=== PATIENT | male | born 1970 ===

== ENCOUNTER 2017-08-19 23:20 | Inpatient (IN) | payer MEDICAID ==
[2017-08-19] MEDS: Albuterol-Ipratrop 3 mg / 0.5 (3 ml) UD IH STA (23:41)
[2017-08-19] MEDS ORDERED: Albuterol-Ipratrop 3 mg / 0.5 (3 ml) UD ONE (23:41)
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
[2017-08-20] MEDS ORDERED: Albuterol-Ipratrop 3 mg / 0.5 (3 ml) UD IH STA (00:08)
[2017-08-20 00:54] LABS: HEMATOCRIT 43.6 % (42.0-52.0); MEAN CELL VOLUME 93.8 fl (80.0-105.0); MEAN CORPUSCULAR HEMOGLOBIN 31.6 pg (25.0-35.0); MEAN CORPUSCULAR HGB CONC 33.7 g/dl (31.0-37.0); MEAN PLATELET VOLUME 10.8 fl (7.0-11.0); RED CELL DISTRIBUTION WIDTH 13.4 % (11.5-14.5); WHITE BLOOD COUNT 11.6 10^3/ul (4.5-11.0)
[2017-08-20 01:59] LABS: ALB/GLOB RATIO 1.5 (1.1-1.8); ALKALINE PHOSPHATASE 69 U/L (38-126); ALT/SGPT 31 U/L (7-56); AST/SGOT 29 U/L (17-59); BILIRUBIN,TOTAL 0.5 mg/dL (0.2-1.3); BLOOD UREA NITROGEN 16 mg/dL (7-21); CALCIUM 8.9 mg/dL (8.4-10.5); CARBON DIOXIDE 29 mmol/L (21-33); CHLORIDE 99 mmol/L (98-107); GFR AFRICAN-AMERICAN > 60; GLUCOSE,RANDOM 136 mg/dL (70-110); POTASSIUM 4.1 mmol/L (3.6-5.0); SODIUM 138 mmol/L (132-148); TOTAL PROTEIN 7.1 g/dL (5.8-8.3)
[2017-08-20] MEDS ORDERED: Albuterol-Ipratrop 3 mg / 0.5 (3 ml) UD IH PRN (02:47)
[2017-08-20 03:15] LABS: ARTERIAL BLOOD GAS HCO3 28.5 mmol/L (21-28); ARTERIAL BLOOD GAS O2 CAPACITY 19.5 mL/dl (16-24); ARTERIAL BLOOD GAS O2 CONTENT 18.8 ML/dl (15-23); ARTERIAL BLOOD GAS PH 7.43 (7.35-7.45); ARTERIAL BLOOD HGB O2 SAT 91.8 % (95.0-98.0); CARBOXYHEMOGLOBIN 3.6 % (0.5-1.5); HHB 3.5 % (0-5)
[2017-08-20] MEDS ORDERED: Albuterol-Ipratrop 3 mg / 0.5 (3 ml) UD IH SCH (03:30)
[2017-08-20 04:12] VITALS: BMI 25.0
[2017-08-20] MEDS ORDERED: Pneumococcal 23-Valent Vaccine IM ONE (04:13)
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
[2017-08-20] MEDS: Albuterol-Ipratrop 3 mg / 0.5 (3 ml) UD IH STA (04:30)
[2017-08-20] MEDS ORDERED: Levalbuterol 0.63 MG/3 ML Inhal Soln UD IH PRN (04:36)
[2017-08-20] MEDS: Pantoprazole 40 mg EC Tab PO SCH (05:23)
[2017-08-20 06:40] LABS: GRAN # 7.81 (1.4-6.5); GRAN % 95.7 % (50.0-68.0); HEMATOCRIT 42.3 % (42.0-52.0); LYMPH # 0.3 (1.2-3.4); LYMPH % 3.6 % (22.0-35.0); MEAN CORPUSCULAR HEMOGLOBIN 31.2 pg (25.0-35.0); MEAN CORPUSCULAR HGB CONC 33.6 g/dl (31.0-37.0); MEAN PLATELET VOLUME 10.9 fl (7.0-11.0); MONO # 0.1 (0.1-0.6); MONO % 0.7 % (1.0-6.0); PLATELET COUNT 279 10^3/uL (120.0-450.0); RED CELL DISTRIBUTION WIDTH 13.3 % (11.5-14.5); WHITE BLOOD COUNT 8.2 10^3/ul (4.5-11.0)
[2017-08-20 06:42] LABS: ALB/GLOB RATIO 1.5 (1.1-1.8); ALKALINE PHOSPHATASE 66 U/L (38-126); ALT/SGPT 30 U/L (7-56); AST/SGOT 30 U/L (17-59); BILIRUBIN,TOTAL 0.5 mg/dL (0.2-1.3); BLOOD UREA NITROGEN 15 mg/dL (7-21); CALCIUM 9.1 mg/dL (8.4-10.5); CARBON DIOXIDE 29 mmol/L (21-33); CHLORIDE 100 mmol/L (98-107); GFR AFRICAN-AMERICAN > 60; GLUCOSE,RANDOM 155 mg/dL (70-110); MAGNESIUM 2.2 mg/dL (1.7-2.2); PHOSPHOROUS 2.3 mg/dL (2.5-4.5); SODIUM 140 mmol/L (132-148); TOTAL PROTEIN 7.1 g/dL (5.8-8.3)
[2017-08-20 07:05] LABS: TROPONIN I < 0.01 ng/mL
[2017-08-20] MEDS: Levalbuterol 0.63 MG/3 ML Inhal Soln UD IH SCH ×5 (08:00→23:56)
[2017-08-20 08:45] LABS: ANISOCYTOSIS SLIGHT; BAND 2 % (0-2); NEUTROPHIL 93 % (50.0-70.0); PLATELET ESTIMATE NORMAL (NORMAL)
[2017-08-20 08:46] LABS: LARGE PLATELETS PRESENT
[2017-08-20] MEDS: MethylPREDNISolone 40 mg Vial IVP SCH ×2 (09:36→21:14)
[2017-08-20 12:29] VITALS: RESP 18
--- NOTE | 2017-08-20 13:10 | RAD ---
HISTORY: asthma /sob COMPARISON: 01/07/2017 FINDINGS: LUNGS: No active pulmonary disease. Bilateral hyperaeration similar-appearing PLEURA: No significant pleural effusion identified, no pneumothorax apparent. CARDIOVASCULAR: Top-normal heart size OSSEOUS STRUCTURES: No significant abnormalities. VISUALIZED UPPER ABDOMEN: Normal. OTHER FINDINGS: None. IMPRESSION: Bilateral [id number]. No infiltrate or atelectasis noted
--- NOTE | 2017-08-21 02:42 | CARD ---
APPROVED REPORT EKG Measurement Heart [id number] OR 140P65 [id number] <Conclusion> Sinus rhythm with premature atrial complexes Otherwise normal ECG
[2017-08-21] MEDS: Pantoprazole 40 mg EC Tab PO SCH (05:22)
[2017-08-21 06:21] LABS: BASO # 0.01 K/mm3 (0.0-2.0); GRAN # 18.93 (1.4-6.5); GRAN % 90.1 % (50.0-68.0); HEMATOCRIT 47.1 % (42.0-52.0); LYMPH % 4.8 % (22.0-35.0); MEAN CELL VOLUME 92.2 fl (80.0-105.0); MEAN CORPUSCULAR HEMOGLOBIN 31.9 pg (25.0-35.0); MEAN CORPUSCULAR HGB CONC 34.6 g/dl (31.0-37.0); MEAN PLATELET VOLUME 10.9 fl (7.0-11.0); MONO # 1.1 (0.1-0.6); MONO % 5.1 % (1.0-6.0); RED CELL DISTRIBUTION WIDTH 13.5 % (11.5-14.5)
[2017-08-21 06:45] LABS: ALB/GLOB RATIO 1.3 (1.1-1.8); ALKALINE PHOSPHATASE 75 U/L (38-126); ALT/SGPT 30 U/L (7-56); AST/SGOT 35 U/L (17-59); BILIRUBIN,TOTAL 0.4 mg/dL (0.2-1.3); BLOOD UREA NITROGEN 20 mg/dL (7-21); CALCIUM 9.6 mg/dL (8.4-10.5); CARBON DIOXIDE 27 mmol/L (21-33); CHLORIDE 102 mmol/L (98-107); GFR AFRICAN-AMERICAN > 60; GLUCOSE,RANDOM 115 mg/dL (70-110); MAGNESIUM 2.3 mg/dL (1.7-2.2); PHOSPHOROUS 3.8 mg/dL (2.5-4.5); POTASSIUM 4.6 mmol/L (3.6-5.0); SODIUM 142 mmol/L (132-148); TOTAL PROTEIN 7.9 g/dL (5.8-8.3)
[2017-08-21] MEDS: Levalbuterol 0.63 MG/3 ML Inhal Soln UD IH SCH ×3 (07:42→16:12)
[2017-08-21] MEDS: MethylPREDNISolone 40 mg Vial IVP SCH (09:14)
[2017-08-21 09:45] VITALS: BP 114/74; PULSE 86; TEMP 98.1
--- NOTE | 2017-08-21 09:51 | CP.PCM.PN ---
<Shaka Heredia - Last Filed: 08/21/17 11:50> Subjective - Date & Time of Evaluation Date of Evaluation: 08/21/17 Time of Evaluation: 09:00 - Subjective Subjective: Subjective: Patient seen and examined at bedside. Resting comfortably in bed. No acute overnight events. Patient states SOB have improved relative to baseline but admits to SOB with exertion. Admits to cough with brown sputum production. Denies f/c/cp/abdominal pain/n/v/d/c/urinary sxs. Physical Examination: Constitutional: a&o x 4, nad Head and Neck: neck supple, no jvd, trachea midline, carotid midline, no cervical/head mass Eyes: mary, nonicteric sclera, eom intact ENT: auditory acuity grossly intact, throat not congested, no nasal deformity Cardio: rrr, no m/r/g, no carotid bruit, nml s1, s2 Pulm: +diffuse wheezes- increased from baseline due to opening of airways; no accessory muscle use, equal nml breath sounds bilaterally, no r/r Abd: s/nt/nd, nbs x 4 q, no palpable masses Derm: no rashes, no ulcers, no lesions Extr: no edema, no cyanosis, no calf tenderness, no lesions, no varicosities Neuro: Patient is awake, alert, responds to verbal stimuli, answers questions appropriately, follows commands, and moves extremities past midline : reducible left inguinal hernia Assessment and Plan: Patient is a 46 M with a past medical history of asthma who was admitted for evaluation and treatment of SOB. Asthma exacerbation - xopenox scheduled and PRN - c/w IV Solu-medrol - AM labs: CBC, CMP, Mg, Phos - Vitals q6h Productive Cough - CXR reviewed and appreciated - CT of chest- rule out pneumonia - considering patients leukocytosis and productive cough will start patient on levofloxacin Left Inguinal Hernia - reducible however recurrent upon standing and ambulation - general surgery consult placed- Dr. Stroud- no surgical intervention at this time- schedule for elective procedure Leukocytosis: - likely 2/2 IV steroid use - monitor closely via CBC in AM - blood cultures pending Tobacco Abuse - encouraged smoking cessation, education on danger of smoking/chewing tobacco products offered - nicotine patch offered- patient does not want at this time Prophylaxis - Protonix - SCDs Patient seen, case discussed with, and plan approved by attending physician, Dr. Plummer Objective - Vital Signs/Intake and Output Vital Signs (last 24 hours): Temp Pulse Resp BP Pulse Ox 99.3 F 91 H 18 143/94 H 94 L 08/20/17 20:41 08/20/17 20:41 08/20/17 20:41 08/20/17 20:41 08/20/17 20:41 Intake and Output: 08/21/17 08/21/17 06:59 18:59 Intake Total 540 Balance 540 - Medications Medications: Current Medications Levalbuterol HCl (Xopenex) 0.63 mg IH [id number] [facility] Last Admin: 08/21/17 07:42 Dose: Not Given Levalbuterol HCl (Xopenex) 0.63 mg IH Q2H PRN PRN Reason: Shortness of Breath Last Admin: 08/21/17 06:06 Dose: 0.63 mg Methylprednisolone (Solu-Medrol) 40 mg IVP Q12 [facility] Last Admin: 08/21/17 09:14 Dose: 40 mg Pantoprazole Sodium (Protonix Ec Tab) 40 mg PO 0600 [facility] Last Admin: 08/21/17 05:22 Dose: 40 mg - Labs Labs: 08/21/17 06:00 08/21/17 06:00 <Hannah Plummer - Last Filed: 08/21/17 14:20> Objective - Vital Signs/Intake and Output Vital Signs (last 24 hours): Temp Pulse Resp BP Pulse Ox 98.1 F 86 18 114/74 98 08/21/17 06:00 08/21/17 06:00 08/21/17 06:00 08/21/17 06:00 08/21/17 10:00 - Medications Medications: Current Medications Levofloxacin/Dextrose (Levaquin 500mg) 500 mg in 100 mls @ 100 mls/hr IVPB DAILY [facility] Levalbuterol HCl (Xopenex) 0.63 mg IH [id number] [facility] Last Admin: 08/21/17 11:34 Dose: 0.63 mg Levalbuterol HCl (Xopenex) 0.63 mg IH Q2H PRN PRN Reason: Shortness of Breath Last Admin: 08/21/17 06:06 Dose: 0.63 mg Methylprednisolone (Solu-Medrol) 40 mg IVP Q12 [facility] Last Admin: 08/21/17 09:14 Dose: 40 mg Pantoprazole Sodium (Protonix Ec Tab) 40 mg PO 0600 [facility] Last Admin: 08/21/17 05:22 Dose: 40 mg Attending/Attestation - Attestation I have personally seen and examined this patient.: Yes I have fully participated in the care of the patient.: Yes I have reviewed all pertinent clinical information, including history, physical exam and plan: Yes Notes (Text): 08/21/17 14:14 attending note; Patient seen and examined with resident. Patient is a 46-year-old male admitted with acute asthma exacerbation. Continue Xopenex and IV steroids. Leukocytosis; secondary to steroids. still with significant cough and mild sputum production; started on IV levofloxacin. CT chest ordered to rule out pneumonia. Active smoking; smoking cessation is strongly advised. Continue to monitor closely. Needs outpatient pulmonary evaluation and PFT. The patient will follow-up with PMD Dr. Cruz upon discharge.
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
[2017-08-21] MEDS ORDERED: levoFLOXacin 500 mg in D5W 500 MG/100 ML BAG IVPB SCH (11:15)
[2017-08-21 13:06] VITALS: O2SAT 98
[2017-08-21] MEDS ORDERED: guaiFENesin 100 mg/5 ml Syrup UD PO PRN (14:19)
--- NOTE | 2017-08-22 13:30 | CP.PCM.DIS ---
<Shaka Heredia - Last Filed: 08/22/17 13:14> Provider - Provider Date of Admission: 08/21/17 11:04 Attending physician: Hannah Plummer MD Primary care physician: Kana Cruz JD, MD Time Spent in preparation of Discharge (in minutes): 30 Diagnosis - Discharge Diagnosis (1) Asthma exacerbation Status: Acute Priority: Medium (2) Shortness of breath Status: Acute Priority: Medium Hospital Course - Lab Results Lab Results: Most Recent Lab Values WBC 21.0 10^3/ul (4.5-11.0) H D 08/21/17 06:00 RBC 5.11 10^6/uL (3.5-6.1) 08/21/17 06:00 Hgb 16.3 g/dL (14.0-18.0) D 08/21/17 06:00 Hct 47.1 % (42.0-52.0) 08/21/17 06:00 MCV 92.2 fl (80.0-105.0) 08/21/17 06:00 MCH 31.9 pg (25.0-35.0) 08/21/17 06:00 MCHC 34.6 g/dl (31.0-37.0) 08/21/17 06:00 RDW 13.5 % (11.5-14.5) 08/21/17 06:00 Plt Count 346 10^3/uL (120.0-450.0) 08/21/17 06:00 MPV 10.9 fl (7.0-11.0) 08/21/17 06:00 Gran % 90.1 % (50.0-68.0) H 08/21/17 06:00 Lymph % (Auto) 4.8 % (22.0-35.0) L 08/21/17 06:00 [place] % (Auto) 5.1 % (1.0-6.0) 08/21/17 06:00 Eos % (Auto) 0.0 % (1.5-5.0) L 08/21/17 06:00 Baso % (Auto) 0.0 % (0.0-3.0) 08/21/17 06:00 Gran # 18.93 (1.4-6.5) H 08/21/17 06:00 Lymph # 1.0 (1.2-3.4) L 08/21/17 06:00 [place] # 1.1 (0.1-0.6) H 08/21/17 06:00 Eos # 0.0 (0.0-0.7) 08/21/17 06:00 Baso # 0.01 K/mm3 (0.0-2.0) 08/21/17 06:00 Neutrophils % (Manual) 93 % (50.0-70.0) H 08/20/17 06:15 Band Neutrophils % 2 % (0-2) 08/20/17 06:15 Lymphocytes % (Manual) 4 % (22.0-35.0) L 08/20/17 06:15 Monocytes % (Manual) 1 % (1.0-6.0) 08/20/17 06:15 Platelet Evaluation Normal (NORMAL) 08/20/17 06:15 Large Platelets Present 08/20/17 06:15 Anisocytosis (manual) Slight 08/20/17 06:15 pCO2 43 mm/Hg (35-45) 08/20/17 03:12 pO2 68.0 mm/Hg (80-100) L 08/20/17 03:12 HCO3 28.5 mmol/L (21-28) H 08/20/17 03:12 ABG pH 7.43 (7.35-7.45) 08/20/17 03:12 ABG Total CO2 29.8 mmol.L (22-28) H 08/20/17 03:12 ABG O2 Saturation 96.3 % (95-98) 08/20/17 03:12 ABG O2 Content 18.8 ML/dl (15-23) 08/20/17 03:12 ABG Base Excess 3.6 mmol/L (-2.0-3.0) H 08/20/17 03:12 ABG Hemoglobin 14.6 g/dL (11.7-17.4) 08/20/17 03:12 ABG Carboxyhemoglobin 3.6 % (0.5-1.5) H 08/20/17 03:12 POC ABG HHb (Measured) 3.5 % (0-5) 08/20/17 03:12 ABG Methemoglobin 1.0 % (0.0-3.0) 08/20/17 03:12 ABG O2 Capacity 19.5 mL/dl (16-24) 08/20/17 03:12 Hgb O2 Saturation 91.8 % (95.0-98.0) L 08/20/17 03:12 FiO2 32.0 % 08/20/17 03:12 Sodium 142 mmol/L (132-148) 08/21/17 06:00 Potassium 4.6 mmol/L (3.6-5.0) 08/21/17 06:00 Chloride 102 mmol/L (98-107) 08/21/17 06:00 Carbon Dioxide 27 mmol/L (21-33) 08/21/17 06:00 Anion Gap 18 (10-20) 08/21/17 06:00 BUN 20 mg/dL (7-21) 08/21/17 06:00 Creatinine 0.9 mg/dL (0.8-1.5) 08/21/17 06:00 Est GFR ( Amer) > 60 08/21/17 06:00 Est GFR (Non-Af Amer) > 60 08/21/17 06:00 Random Glucose 115 mg/dL (70-110) H 08/21/17 06:00 Calcium 9.6 mg/dL (8.4-10.5) 08/21/17 06:00 Phosphorus 3.8 mg/dL (2.5-4.5) 08/21/17 06:00 Magnesium 2.3 mg/dL (1.7-2.2) H 08/21/17 06:00 Total Bilirubin 0.4 mg/dL (0.2-1.3) 08/21/17 06:00 AST 35 U/L (17-59) 08/21/17 06:00 ALT 30 U/L (7-56) 08/21/17 06:00 Alkaline Phosphatase 75 U/L (38-126) 08/21/17 06:00 Troponin I < 0.01 ng/mL 08/20/17 06:15 Total Protein 7.9 g/dL (5.8-8.3) 08/21/17 06:00 Albumin 4.5 g/dL (3.0-4.8) 08/21/17 06:00 Globulin 3.4 gm/dL 08/21/17 06:00 Albumin/Globulin Ratio 1.3 (1.1-1.8) 08/21/17 06:00 - Hospital Course Hospital Course: Patient is a 46 year old male with a past medical history of asthma who was admitted for evaluation and treatment of SOB. With the use of physical examinations, lab work, and imaging the patient was diagnosed with and treated for acute asthma exacerbation and a reducible left inguinal hernia. During their hospital stay the patient was seen by general surgery and their recommendations were appreciated. During their hospital stay the patient underwent a chest xray and the results were reviewed and utilized in managing the patients clinical course. Patient desired to leave against medical advice due to social issues. Patient was educated on the risks and benefits of leaving at this time without being medically cleared. Patient both understands and appreciates that leaving against medical advice can increase his risk of both morbidity and mortality. Furthermore, the patient is instructed to return to the emergency room for evaluation of intractable headache, fever, chills, dizziness, chest pain, shortness of breath, abdominal pain, nausea, vomiting, diarrhea, constipation, and urinary symptoms. This is a brief summary of the patients hospital course. Please see patient chart for full details. Discharge Plan - Discharge Medications Prescriptions: Albuterol HFA [Ventolin HFA 90 mcg/actuation (8 g)] 1 puff IH Q6 #1 inhaler Fluticasone/Salmeterol 500/50 [Advair Diskus] 1 dsk IH BID #1 puff guaiFENesin [guaifENESIN] 100 mg PO Q6 #10 udc Levofloxacin [Levaquin] 500 mg PO DAILY #7 tablet Methylprednisolone [Medrol Dose Pack (21 tabs)] 4 mg PO DAILY #21 mg Pantoprazole Sodium [Protonix] 40 mg PO DAILY #14 ect - Follow Up Plan Condition: STABLE Disposition: AGAINST MEDICAL ADVICE Referrals: Kana Cruz JD, MD [Primary Care Provider] - <Hannah Plummer - Last Filed: 08/22/17 14:17> Provider - Provider Date of Admission: 08/21/17 11:04 Attending physician: Hannah Plummer MD Primary care physician: Kana Cruz JD, MD Hospital Course - Lab Results Lab Results: Most Recent Lab Values WBC 21.0 10^3/ul (4.5-11.0) H D 08/21/17 06:00 RBC 5.11 10^6/uL (3.5-6.1) 08/21/17 06:00 Hgb 16.3 g/dL (14.0-18.0) D 08/21/17 06:00 Hct 47.1 % (42.0-52.0) 08/21/17 06:00 MCV 92.2 fl (80.0-105.0) 08/21/17 06:00 MCH 31.9 pg (25.0-35.0) 08/21/17 06:00 MCHC 34.6 g/dl (31.0-37.0) 08/21/17 06:00 RDW 13.5 % (11.5-14.5) 08/21/17 06:00 Plt Count 346 10^3/uL (120.0-450.0) 08/21/17 06:00 MPV 10.9 fl (7.0-11.0) 08/21/17 06:00 Gran % 90.1 % (50.0-68.0) H 08/21/17 06:00 Lymph % (Auto) 4.8 % (22.0-35.0) L 08/21/17 06:00 [place] % (Auto) 5.1 % (1.0-6.0) 08/21/17 06:00 Eos % (Auto) 0.0 % (1.5-5.0) L 08/21/17 06:00 Baso % (Auto) 0.0 % (0.0-3.0) 08/21/17 06:00 Gran # 18.93 (1.4-6.5) H 08/21/17 06:00 Lymph # 1.0 (1.2-3.4) L 08/21/17 06:00 [place] # 1.1 (0.1-0.6) H 08/21/17 06:00 Eos # 0.0 (0.0-0.7) 08/21/17 06:00 Baso # 0.01 K/mm3 (0.0-2.0) 08/21/17 06:00 Neutrophils % (Manual) 93 % (50.0-70.0) H 08/20/17 06:15 Band Neutrophils % 2 % (0-2) 08/20/17 06:15 Lymphocytes % (Manual) 4 % (22.0-35.0) L 08/20/17 06:15 Monocytes % (Manual) 1 % (1.0-6.0) 08/20/17 06:15 Platelet Evaluation Normal (NORMAL) 08/20/17 06:15 Large Platelets Present 08/20/17 06:15 Anisocytosis (manual) Slight 08/20/17 06:15 pCO2 43 mm/Hg (35-45) 08/20/17 03:12 pO2 68.0 mm/Hg (80-100) L 08/20/17 03:12 HCO3 28.5 mmol/L (21-28) H 08/20/17 03:12 ABG pH 7.43 (7.35-7.45) 08/20/17 03:12 ABG Total CO2 29.8 mmol.L (22-28) H 08/20/17 03:12 ABG O2 Saturation 96.3 % (95-98) 08/20/17 03:12 ABG O2 Content 18.8 ML/dl (15-23) 08/20/17 03:12 ABG Base Excess 3.6 mmol/L (-2.0-3.0) H 08/20/17 03:12 ABG Hemoglobin 14.6 g/dL (11.7-17.4) 08/20/17 03:12 ABG Carboxyhemoglobin 3.6 % (0.5-1.5) H 08/20/17 03:12 POC ABG HHb (Measured) 3.5 % (0-5) 08/20/17 03:12 ABG Methemoglobin 1.0 % (0.0-3.0) 08/20/17 03:12 ABG O2 Capacity 19.5 mL/dl (16-24) 08/20/17 03:12 Hgb O2 Saturation 91.8 % (95.0-98.0) L 08/20/17 03:12 FiO2 32.0 % 08/20/17 03:12 Sodium 142 mmol/L (132-148) 08/21/17 06:00 Potassium 4.6 mmol/L (3.6-5.0) 08/21/17 06:00 Chloride 102 mmol/L (98-107) 08/21/17 06:00 Carbon Dioxide 27 mmol/L (21-33) 08/21/17 06:00 Anion Gap 18 (10-20) 08/21/17 06:00 BUN 20 mg/dL (7-21) 08/21/17 06:00 Creatinine 0.9 mg/dL (0.8-1.5) 08/21/17 06:00 Est GFR ( Amer) > 60 08/21/17 06:00 Est GFR (Non-Af Amer) > 60 08/21/17 06:00 Random Glucose 115 mg/dL (70-110) H 08/21/17 06:00 Calcium 9.6 mg/dL (8.4-10.5) 08/21/17 06:00 Phosphorus 3.8 mg/dL (2.5-4.5) 08/21/17 06:00 Magnesium 2.3 mg/dL (1.7-2.2) H 08/21/17 06:00 Total Bilirubin 0.4 mg/dL (0.2-1.3) 08/21/17 06:00 AST 35 U/L (17-59) 08/21/17 06:00 ALT 30 U/L (7-56) 08/21/17 06:00 Alkaline Phosphatase 75 U/L (38-126) 08/21/17 06:00 Troponin I < 0.01 ng/mL 08/20/17 06:15 Total Protein 7.9 g/dL (5.8-8.3) 08/21/17 06:00 Albumin 4.5 g/dL (3.0-4.8) 08/21/17 06:00 Globulin 3.4 gm/dL 08/21/17 06:00 Albumin/Globulin Ratio 1.3 (1.1-1.8) 08/21/17 06:00 Attending/Attestation - Attestation I have personally seen and examined this patient.: Yes I have fully participated in the care of the patient.: Yes I have reviewed all pertinent clinical information, including history, physical exam and plan: Yes Notes (Text): 08/22/17 14:16 attending note; Patient seen and examined with resident. Patient is a 46-year-old male admitted with acute asthma exacerbation. Continue Xopenex and IV steroids. Leukocytosis; secondary to steroids. still with significant cough and mild sputum production; started on IV levofloxacin. CT chest ordered to rule out pneumonia. Active smoking; smoking cessation is strongly advised. Continue to monitor closely. Needs outpatient pulmonary evaluation and PFT. patient signed AMA. The patient will follow-up with PMD Dr. Cruz upon discharge. diagnosis; asthma smoker leukocytosis
== END 2017-08-21 17:30 | disposition left against medical advice (07) | DRG 97 ==
LOC: ED 23:20 → ERH 08-20 02:25 → 2RNO 08-20 03:35 → 3RSO 08-20 16:47 → OBSVTOIN 08-21 11:04
PROVIDERS: ADMIT Internal Medicine; ATTEND Internal Medicine
PROC: 3E0F7GC Introduction of Other Therapeutic Substance into Respiratory Tract, Via Natural or Artificial Opening (ICD-10-PCS; principal; 2017-08-20)
DX: J45.901 Unspecified asthma with (acute) exacerbation (principal); D72.829 Elevated white blood cell count, unspecified; T38.0X5A Adverse effect of glucocorticoids and synthetic analogues, initial encounter; K21.9 Gastro-esophageal reflux disease without esophagitis; K40.90 Unilateral inguinal hernia, without obstruction or gangrene, not specified as recurrent; N40.0 Benign prostatic hyperplasia without lower urinary tract symptoms; K59.00 Constipation, unspecified; F17.210 Nicotine dependence, cigarettes, uncomplicated

== ENCOUNTER 2017-10-03 20:20 | Inpatient (IN) | payer MEDICAID ==
[2017-10-03] MEDS ORDERED: Albuterol 0.083% Inhal Sol (2.5 mg/3 mL) UD ONE (20:24)
[2017-10-03] MEDS ORDERED: Magnesium Sulfate 2 GM in Sodium Chloride 0.9% 100 ML IVPB ONE (20:26)
[2017-10-03 20:28] VITALS: BMI 28.4
[2017-10-03] MEDS ORDERED: Ketamine 10 mg/ml Inj (20 ml) ONE (20:28)
[2017-10-03] MEDS ORDERED: Ketamine 10 mg/ml Inj (20 ml) IV ONE (20:29)
[2017-10-03 20:50] LABS: BASO # 0.05 K/mm3 (0.0-2.0); BASO % 0.3 % (0.0-3.0); EOS # 1.6 (0.0-0.7); EOS % 8.4 % (1.5-5.0); GRAN # 12.55 (1.4-6.5); GRAN % 65.5 % (50.0-68.0); HEMATOCRIT 49.1 % (42.0-52.0); LYMPH # 3.4 (1.2-3.4); LYMPH % 17.5 % (22.0-35.0); MEAN CELL VOLUME 96.8 fl (80.0-105.0); MEAN PLATELET VOLUME 10.8 fl (7.0-11.0); MONO # 1.6 (0.1-0.6); MONO % 8.3 % (1.0-6.0); RED CELL DISTRIBUTION WIDTH 13.7 % (11.5-14.5); WHITE BLOOD COUNT 19.2 10^3/ul (4.5-11.0)
[2017-10-03 21:15] LABS: ARTERIAL BLOOD GAS HCO3 27.7 mmol/L (21-28); ARTERIAL BLOOD GAS O2 CAPACITY 20.9 mL/dl (16-24); ARTERIAL BLOOD GAS O2 CONTENT 20.8 ML/dl (15-23); ARTERIAL BLOOD HGB O2 SAT 93.9 % (95.0-98.0); CARBOXYHEMOGLOBIN 4.8 % (0.5-1.5); HHB 0.3 % (0-5); METHEMOGLOBIN 0.9 % (0.0-3.0)
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
[2017-10-03] MEDS ORDERED: Albuterol 0.083% Inhal Sol (2.5 mg/3 mL) UD INH STA (21:22)
[2017-10-03] MEDS ORDERED: Albuterol 0.083% Inhal Sol (2.5 mg/3 mL) UD INH SCH (21:30)
[2017-10-03 21:33] LABS: ALB/GLOB RATIO 1.4 (1.1-1.8); ALKALINE PHOSPHATASE 73 U/L (38-126); ALT/SGPT 45 U/L (7-56); AST/SGOT 43 U/L (17-59); BILIRUBIN,TOTAL 0.7 mg/dL (0.2-1.3); BLOOD UREA NITROGEN 11 mg/dL (7-21); CALCIUM 9.3 mg/dL (8.4-10.5); CARBON DIOXIDE 31 mmol/L (21-33); CHLORIDE 102 mmol/L (98-107); GFR AFRICAN-AMERICAN > 60; GLUCOSE,RANDOM 146 mg/dL (70-110); SODIUM 140 mmol/L (132-148); TOTAL PROTEIN 7.5 g/dL (5.8-8.3)
[2017-10-03 21:58] LABS: TROPONIN I 0.02 ng/mL
[2017-10-03 22:19] LABS: ARTERIAL BLOOD GAS HCO3 17.6 mmol/L (21-28); ARTERIAL BLOOD GAS O2 CAPACITY 13.9 mL/dl (16-24); ARTERIAL BLOOD GAS O2 CONTENT 13.8 ML/dl (15-23); ARTERIAL BLOOD GAS PH 7.24 (7.35-7.45); ARTERIAL BLOOD HGB O2 SAT 94.8 % (95.0-98.0); CARBOXYHEMOGLOBIN 3.7 % (0.5-1.5); HHB 0.8 % (0-5); METHEMOGLOBIN 0.7 % (0.0-3.0)
[2017-10-03] MEDS ORDERED: Albuterol-Ipratrop 3 mg / 0.5 (3 ml) UD IH PRN (23:00)
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
[2017-10-03] MEDS ORDERED: levoFLOXacin 750 mg in D5W 750 MG/150 ML BAG IVPB STA (23:35)
[2017-10-03] MEDS ORDERED: MethylPREDNISolone 40 mg Vial ONE (23:41)
[2017-10-03] MEDS: Albuterol-Ipratrop 3 mg / 0.5 (3 ml) UD IH SCH (23:44)
[2017-10-03] MEDS: MethylPREDNISolone 40 mg Vial IVP SCH (23:44)
[2017-10-04] MEDS: Albuterol-Ipratrop 3 mg / 0.5 (3 ml) UD IH SCH ×6 (02:47→23:52)
[2017-10-04] MEDS: MethylPREDNISolone 40 mg Vial IVP SCH ×3 (05:28→21:53)
[2017-10-04] MEDS: Pantoprazole 40 mg EC Tab PO SCH (05:28)
[2017-10-04 08:46] LABS: BASO # 0.01 K/mm3 (0.0-2.0); BASO % 0.1 % (0.0-3.0); GRAN # 6.66 (1.4-6.5); GRAN % 91.9 % (50.0-68.0); HEMATOCRIT 45.1 % (42.0-52.0); LYMPH # 0.5 (1.2-3.4); LYMPH % 6.6 % (22.0-35.0); MEAN CELL VOLUME 93.6 fl (80.0-105.0); MEAN CORPUSCULAR HEMOGLOBIN 31.1 pg (25.0-35.0); MEAN CORPUSCULAR HGB CONC 33.3 g/dl (31.0-37.0); MEAN PLATELET VOLUME 10.7 fl (7.0-11.0); MONO # 0.1 (0.1-0.6); MONO % 1.4 % (1.0-6.0); PLATELET COUNT 300 10^3/uL (120.0-450.0); RED CELL DISTRIBUTION WIDTH 13.5 % (11.5-14.5); WHITE BLOOD COUNT 7.3 10^3/ul (4.5-11.0)
[2017-10-04 09:15] LABS: ALB/GLOB RATIO 1.5 (1.1-1.8); ALKALINE PHOSPHATASE 67 U/L (38-126); ALT/SGPT 44 U/L (7-56); AST/SGOT 34 U/L (17-59); BILIRUBIN,TOTAL 0.7 mg/dL (0.2-1.3); BLOOD UREA NITROGEN 12 mg/dL (7-21); CALCIUM 9.6 mg/dL (8.4-10.5); CARBON DIOXIDE 29 mmol/L (21-33); CHLORIDE 101 mmol/L (98-107); GFR AFRICAN-AMERICAN > 60; GLUCOSE,RANDOM 134 mg/dL (70-110); POTASSIUM 4.2 mmol/L (3.6-5.0); SODIUM 140 mmol/L (132-148); TOTAL PROTEIN 7.4 g/dL (5.8-8.3); TROPONIN I 0.14 ng/mL
[2017-10-04] MEDS: Albuterol-Ipratrop 3 mg / 0.5 (3 ml) UD IH PRN ×3 (09:22→09:25)
[2017-10-04 09:47] LABS: ANISOCYTOSIS SLIGHT; GIANT PLATELETS PRESENT; NEUTROPHIL 91 % (50.0-70.0); PLATELET ESTIMATE NORMAL (NORMAL)
[2017-10-04] MEDS: Enoxaparin 40 mg Syringe SC SCH (09:48)
[2017-10-04] MEDS ORDERED: levoFLOXacin 750 mg in D5W 750 MG/150 ML BAG IVPB SCH ×2 (10:00→22:00)
--- NOTE | 2017-10-04 12:36 | CP.PCM.PN ---
<FabyKali - Last Filed: 10/05/17 07:59> Subjective - Date & Time of Evaluation Date of Evaluation: 10/04/17 Time of Evaluation: 12:30 - Subjective Subjective: Patient is seen and evaluated at bedside on [facility]. Patient is laying in bed with BiPAP on in no acute distress. Patient reports improved respiratory effort from admission but still complains of shortness of breath. Patient denies chest pain , abdominal pain, dizziness, nausea, vomiting, fever, chills. patient is educated on smoking cessation. Objective - Vital Signs/Intake and Output Vital Signs (last 24 hours): Temp Pulse Resp BP Pulse Ox 98.1 F 85 18 139/88 100 10/04/17 08:14 10/04/17 11:28 10/04/17 09:40 10/04/17 08:21 10/04/17 09:40 Intake and Output: 10/04/17 10/04/17 06:59 18:59 Intake Total 50 Output Total 240 Balance -190 - Medications Medications: Current Medications Albuterol/Ipratropium (Duoneb 3 Mg/0.5 Mg (3 Ml) Ud) 3 ml IH [id number] [facility] Last Admin: 10/04/17 11:28 Dose: 3 ml Albuterol/Ipratropium (Duoneb 3 Mg/0.5 Mg (3 Ml) Ud) 3 ml IH Q2H PRN PRN Reason: Shortness of Breath Last Admin: 10/04/17 09:25 Dose: 3 ml Enoxaparin Sodium (Lovenox) 40 mg SC DAILY [facility] PRN Reason: Protocol Last Admin: 10/04/17 09:48 Dose: 40 mg Levofloxacin/Dextrose (Levaquin 750mg) 750 mg in 150 mls @ 100 mls/hr IVPB 2200 MARV Methylprednisolone (Solu-Medrol) 40 mg IVP Q8 [facility] Last Admin: 10/04/17 05:28 Dose: 40 mg Pantoprazole Sodium (Protonix Ec Tab) 40 mg PO 0600 [facility] Last Admin: 10/04/17 05:28 Dose: 40 mg - Labs Labs: 10/04/17 08:00 10/04/17 08:00 - Constitutional Appears: Other (appears stated age, with BiPAP mask on in no apparent distress ) - Head Exam Head Exam: ATRAUMATIC, NORMAL INSPECTION, NORMOCEPHALIC - Eye Exam Eye Exam: EOMI, PERRL - ENT Exam ENT Exam: Mucous Membranes Dry - Neck Exam Neck Exam: Full ROM - Respiratory Exam Respiratory Exam: Wheezes (bilaterally ). absent: Rales, Rhonchi - Cardiovascular Exam Cardiovascular Exam: REGULAR RHYTHM, +S1, +S2 - GI/Abdominal Exam GI & Abdominal Exam: Soft, Normal Bowel Sounds. absent: Guarding, Tenderness - Extremities Exam Extremities Exam: absent: Calf Tenderness, Pedal Edema - Neurological Exam Neurological Exam: Alert, Awake, Oriented x3 - Psychiatric Exam Psychiatric exam: Normal Affect, Normal Mood - Skin Skin Exam: Dry, Intact, Warm. absent: Rash Assessment and Plan - Assessment and Plan (Free Text) Assessment: Patient is a 46 year old male with past medical history significant for persistent asthma who is admitted for asthma exacerbation. Patient was placed on BiPAP and will be transferred from [facility] to ICU for further monitoring and evaluation. Plan: 1. Asthma exacerbation - Likely etiology: non compliance, smoking, cold weather exposure - CXR: hyperinflated lung de [place] - Solumedrol 40mg IV Q8H - Duoneb Q4H MARV, Q2H PRN - BiPAP setting - - ABG showing Respiratory acidosis with elevated O2 on >40 FiO2 - Plan to titrate down FiO2 and redraw ABG - Legionella f/u, strep pneumo f/u, UDS f/u - Patient requesting to not be intubated at this time - Transfer patient to ICU for further monitoring 2. Elevated Troponin - Initial trop 0.02, second 0.14 - Will continue to trend troponin x2 - EKG ordered, f/u - EKG on admission NSR, no ST elevations/depressions 2. Tobacco abuse - Smoking cessation education - Patient agreeable and understanding GI PPX: Protonix DVT: Lovenox Case and plan discussed with attending <Jose A López - Last Filed: 10/05/17 14:29> Objective - Vital Signs/Intake and Output Vital Signs (last 24 hours): Temp Pulse Resp BP Pulse Ox 98.2 F 87 32 H 121/63 96 10/05/17 07:00 10/05/17 13:46 10/05/17 08:51 10/05/17 08:51 10/05/17 02:40 - Medications Medications: Current Medications Albuterol/Ipratropium (Duoneb 3 Mg/0.5 Mg (3 Ml) Ud) 3 ml IH [id number] [facility] Last Admin: 10/05/17 11:08 Dose: Not Given Albuterol/Ipratropium (Duoneb 3 Mg/0.5 Mg (3 Ml) Ud) 3 ml IH Q2H PRN PRN Reason: Shortness of Breath Last Admin: 10/05/17 13:40 Dose: 3 ml Enoxaparin Sodium (Lovenox) 40 mg SC DAILY [facility] PRN Reason: Protocol Last Admin: 10/05/17 08:49 Dose: 40 mg Levofloxacin/Dextrose (Levaquin 750mg) 750 mg in 150 mls @ 100 mls/hr IVPB 2200 [facility] Last Admin: 10/04/17 21:53 Dose: 100 mls/hr Methylprednisolone (Solu-Medrol) 40 mg IVP Q8 [facility] Last Admin: 10/05/17 13:20 Dose: 40 mg Pantoprazole Sodium (Protonix Ec Tab) 40 mg PO 0600 [facility] Last Admin: 10/05/17 05:10 Dose: 40 mg - Labs Labs: 10/05/17 05:00 10/05/17 05:00 Attending/Attestation - Attestation I have personally seen and examined this patient.: Yes I have fully participated in the care of the patient.: Yes I have reviewed all pertinent clinical information, including history, physical exam and plan: Yes Notes (Text): 10/05/17 14:25 Patient was seen and examined with paramedical aide. Agreed with resident assessment and plan. 46 yrs old male with PMH of asthma, chronic smoking is admitted with hypercapnic Respiratory failure due to asthma exacerbation, improving on BIPAP. Patient was evaluated by ICU and will be transferred to ICU. We will continue Neb/IV steroid and antibiotics. Management plan was discussed in detail with patient Education was provided.
--- NOTE | 2017-10-04 13:44 | RAD ---
HISTORY: SOB, Asthma Exas COMPARISON: 08/20/2017 FINDINGS: LUNGS: No active pulmonary disease. PLEURA: No significant pleural effusion identified, no pneumothorax apparent. CARDIOVASCULAR: Normal. OSSEOUS STRUCTURES: No significant abnormalities. VISUALIZED UPPER ABDOMEN: Normal. OTHER FINDINGS: None. IMPRESSION: No active disease.
[2017-10-04 14:08] LABS: ARTERIAL BLOOD GAS HCO3 28.5 mmol/L (21-28); ARTERIAL BLOOD GAS PH 7.44 (7.35-7.45)
--- NOTE | 2017-10-04 19:04 | CARD ---
APPROVED REPORT EXAM: Two-dimensional and M-mode echocardiogram with Doppler and color Doppler. INDICATION 2D DIMENSIONS IVSd1.2 (0.7-1.1cm)LVDd4.8 (3.9-5.9cm) PWd1.2 (0.7-1.1cm)LVDs2.4 (2.5-4.0cm) FS (%) 50.1 %LVEF (%)81.3 (>50%) M-Mode DIMENSIONS Left Atrium (MM)3.70 (2.5-4.0cm)Aortic Root3.50 (2.2-3.7cm) Aortic Cusp Exc.2.30 (1.5-2.0cm) Aortic Valve AoV Peak Brijceco781.0cm/Keely Peak GR.12mmHg Mitral Valve MV E Dzrbtlfc72.5cm/sMV A Rkkfamqm63.4cm/sE/A ratio0.9 TDI Lateral E' Peak V15.80cm/sMedial E' Peak V12.80cm/sE/Lateral E'4.8 E/Medial E'5.9 Tricuspid Valve TR Peak Zsazonop432qn/sRAP [id number] Peak Gr.26mmHg [id number] LEFT VENTRICLE The left ventricle is normal size. There is borderline concentric left ventricular hypertrophy. The left ventricular function is normal. The left ventricular ejection fraction is within the normal range. There is normal LV segmental wall motion. Transmitral Doppler flow pattern is Grade I-abnormal relaxation pattern. RIGHT VENTRICLE The right ventricle is normal size. There is normal right ventricular wall thickness. The right ventricular systolic function is normal. ATRIA The left atrium size is normal. The right atrium size is normal. AORTIC VALVE The aortic valve is mildly thickened. MITRAL VALVE The mitral valve is normal in structure. There is no mitral valve regurgitation noted. TRICUSPID VALVE There is mild pulmonary hypertension. GREAT VESSELS The aortic root is normal in size. The IVC collapses <50% with inspiration. PERICARDIAL EFFUSION There is no pericardial effusion. <Conclusion> The left ventricle is normal size. There is borderline concentric left ventricular hypertrophy. The left ventricular function is normal. The left ventricular ejection fraction is within the normal range. There is normal LV segmental wall motion. Transmitral Doppler flow pattern is Grade I-abnormal relaxation pattern. There is mild pulmonary hypertension.
--- NOTE | 2017-10-04 23:10 | CARD ---
APPROVED REPORT EKG Measurement Heart [id number] CT [id number] <Conclusion> Normal sinus rhythm Possible Left atrial enlargement Borderline ECG
--- NOTE | 2017-10-04 23:20 | CARD ---
APPROVED REPORT EKG Measurement Heart [id number] [place] [id number] <Conclusion> Normal sinus rhythm Normal ECG
--- NOTE | 2017-10-05 01:31 | CON ---
DATE: 10/04/2017 HISTORY OF PRESENT ILLNESS: The patient is a 46-year-old gentleman with history of asthma who presented with shortness of breath, dry cough and increased dyspnea on exertion. He also reports that he was wheezing and had a chest tightness. He tried his Ventolin inhalers; however, in no avail. Of note, he is a current smoker and continued to smoke for many years but cannot say what period of time. He was using his inhalers 3 times a day for shortness of breath and was waking up at night due to his asthma exacerbation. His last hospitalization was about a month ago, where he was treated for 3 days and then signed-out AMA. ALLERGIES: PENICILLIN. PAST MEDICAL HISTORY: Severe persistent asthma. FAMILY HISTORY: Noncontributory. SOCIAL HISTORY: The patient smokes about half a pack a day. He denies alcohol use and he reports recreational marijuana use. REVIEW OF SYSTEMS: Review of 12-organ system other than mentioned in history of present illness is negative. PHYSICAL EXAMINATION: (The patient is in the ICU after 3 continuous nebulizer treatment and BiPAP). The patient is comfortable, talks full sentences, reports doing subjectively much better. VITAL SIGNS: Heart rate 89, oxygen saturation 95% on nasal cannula, respiratory rate 19, blood pressure 120/79. ENT: Head and neck atraumatic. LUNGS: On the monitor, wheezes bilaterally. Good air entry. HEART: Regular rate and rhythm. S1 and S2 normal. ABDOMEN: Soft, nontender, nondistended. MUSCULOSKELETAL: No C/C/E. NEUROLOGIC: The patient moves all extremities spontaneously. SKIN: Color is moist. PSYCHIATRIC: The patient is alert and oriented x3. LABORATORY DATA: WBC 7.3, hemoglobin 15, platelet count 300. Sodium 140, potassium 4.2, chloride 101, carbon dioxide 29, BUN 12, creatinine 0.7, glucose 134. AST 34, ALT 44. Troponin 0.14 up from 0.02, albumin is 4.4 and ABG is pending for today. Chest x-ray showed no acute pulmonary disease. CURRENT MEDICATIONS: Albuterol p.r.n. and every 4 hours on standing basis, Lovenox 40 mg subcu daily, levofloxacin 750 mg daily, Solu-Medrol 40 mg IV q.8 and Protonix 40 mg p.o. daily. ASSESSMENT AND PLAN: This 46-year-old gentleman who presented with likely asthma, chronic obstructive pulmonary disease overlap syndrome (ACOS) exacerbation. At the present time, he is doing much better. We will proceed with antibiotics, bronchodilators, steroid taper, BiPAP at night. Deep venous thrombosis and gastrointestinal prophylaxis. We will repeat ABG to ascertain resolution of acute respiratory acidosis. We will continue with deep venous thrombosis and gastrointestinal prophylaxis. We will continue with maintaining euvolemia, euglycemia, normothermia, and oxygen saturation more than 90%. The patient has mild bump in his troponin level; however, he does not have any chest pain and his shortness of breath substantially improved. Most likely it is relates to demand-supply mismatch ischemia; however, EKG and echocardiogram that was ordered by primary medical team seems to be reasonable. ccm time 40 min [address] L[address] MD [address]
[2017-10-05] MEDS: Albuterol-Ipratrop 3 mg / 0.5 (3 ml) UD IH SCH ×5 (04:15→20:08)
[2017-10-05 04:44] VITALS: O2SAT 96
[2017-10-05] MEDS: MethylPREDNISolone 40 mg Vial IVP SCH ×2 (05:10→13:20)
[2017-10-05] MEDS: Pantoprazole 40 mg EC Tab PO SCH (05:10)
[2017-10-05 05:32] LABS: BASO # 0.01 K/mm3 (0.0-2.0); GRAN # 19.73 (1.4-6.5); GRAN % 91.9 % (50.0-68.0); HEMATOCRIT 45.6 % (42.0-52.0); LYMPH # 0.8 (1.2-3.4); LYMPH % 3.6 % (22.0-35.0); MEAN CELL VOLUME 92.3 fl (80.0-105.0); MEAN CORPUSCULAR HEMOGLOBIN 31.6 pg (25.0-35.0); MEAN CORPUSCULAR HGB CONC 34.2 g/dl (31.0-37.0); MEAN PLATELET VOLUME 10.4 fl (7.0-11.0); MONO % 4.5 % (1.0-6.0); RED CELL DISTRIBUTION WIDTH 13.7 % (11.5-14.5); WHITE BLOOD COUNT 21.5 10^3/ul (4.5-11.0)
[2017-10-05 05:53] LABS: BILIRUBIN,TOTAL 0.6 mg/dL (0.2-1.3); GFR AFRICAN-AMERICAN > 60
[2017-10-05 05:54] LABS: ALT/SGPT 44 U/L (7-56)
[2017-10-05 06:12] LABS: BLOOD UREA NITROGEN 21 mg/dL (7-21); CALCIUM 9.7 mg/dL (8.4-10.5); CARBON DIOXIDE 29 mmol/L (21-33); CHLORIDE 101 mmol/L (98-107); GLUCOSE,RANDOM 112 mg/dL (70-110); POTASSIUM 4.4 mmol/L (3.6-5.0); SODIUM 140 mmol/L (132-148); TOTAL PROTEIN 7.7 g/dL (5.8-8.3)
[2017-10-05 06:14] LABS: ALKALINE PHOSPHATASE 67 U/L (38-126); AST/SGOT 44 U/L (17-59)
[2017-10-05 06:23] LABS: ALB/GLOB RATIO 1.4 (1.1-1.8)
[2017-10-05] MEDS: Enoxaparin 40 mg Syringe SC SCH (08:49)
[2017-10-05 08:54] VITALS: BP 121/63; RESP 32
[2017-10-05 08:55] VITALS: TEMP 98.2
--- NOTE | 2017-10-05 10:52 | CP.CCUPN ---
<Magen Julien - Last Filed: 10/05/17 10:49> CCU Subjective - Physician Review Subjective (Free Text): 10/05/17 10:52 Magen Julien D.O. PGY-2, Critical Care Progress Note 46 year old male with a PMH of severe persistent asthma who presented to [facility] with complaints of chest tightness with wheezing and shortness of breath for 3 days. Patient was seen and examined at bedside. Patient states that he did ok overnight, no acute complaints over than some residual SOB. Patient has been doing ok with NC without any issues. No acute overnight events per nursing staff. CCU Objective - Vital Signs / Intake & Output Vital Signs (Last 4 hours): Vital Signs Temp Pulse Resp BP 10/05/17 08:51 91 H 32 H 121/63 10/05/17 08:50 89 29 H 10/05/17 08:40 80 32 H 10/05/17 08:30 81 31 H 10/05/17 08:20 79 27 H 10/05/17 08:10 81 29 H 10/05/17 08:00 109 H 29 H 10/05/17 07:51 76 27 H 127/73 10/05/17 07:50 102 H 29 H 10/05/17 07:40 93 H 26 H 10/05/17 07:30 90 32 H 10/05/17 07:20 89 28 H 10/05/17 07:10 118 H 10/05/17 07:00 98.2 F 89 31 H 10/05/17 06:52 80 30 H 120/71 10/05/17 06:50 94 H 26 H Intake and Output (Last 8hrs): Intake & Output 10/04/17 10/05/17 10/05/17 22:59 06:59 14:59 Intake Total 300 Output Total 150 Balance 150 Intake: Oral 300 Output: Urine 150 Urine, Voided 150 Other: # Bowel Movements 0 - Physical Exam Head: Positive for: Atraumatic, Normocephalic Pupils: Positive for: PERRL Extroacular Muscles: Positive for: EOMI Conjunctiva: Positive for: Normal Ears: Positive for: Normal Mouth: Positive for: Moist Mucous Membranes Pharnyx: Positive for: Normal Nose (External): Positive for: Atraumatic Neck: Positive for: Normal Range of Motion, Trachea Midline Respiratory/Chest: Positive for: Wheezes (mild diffuse). Negative for: Respiratory Distress, Accessory Muscle Use Cardiovascular: Positive for: Regular Rate and Rhythm, Normal S1, S2. Negative for: Murmurs, Rub, Gallop Abdomen: Positive for: Normal Bowel Sounds. Negative for: Tenderness, Distention, Peritoneal Signs Upper Extremity: Positive for: Normal Inspection. Negative for: Cyanosis, Edema Lower Extremity: Positive for: Normal Inspection, Other (peripheral pulses 2+). Negative for: Edema Neurological: Positive for: GCS=15, CN II-XII Intact, Speech Normal Skin: Positive for: Warm, Dry. Negative for: Rashes Psychiatric: Positive for: Alert, Oriented x 3 - Medications Active Medications: Active Medications Generic Name Dose Route Start Last Admin Trade Name Freq PRN Reason Stop Dose Admin Albuterol/Ipratropium 3 ml 10/04/17 11:30 10/05/17 07:50 Duoneb 3 Mg/0.5 Mg (3 Ml) Ud IH Not Given [id number] MARV Albuterol/Ipratropium 3 ml 10/04/17 07:50 10/04/17 09:25 Duoneb 3 Mg/0.5 Mg (3 Ml) Ud IH 3 ml Q2H PRN Administration Shortness of Breath Enoxaparin Sodium 40 mg 10/04/17 10:00 10/05/17 08:49 Lovenox SC 40 mg DAILY MARV Administration Protocol Levofloxacin/Dextrose 750 mg in 150 mls @ 100 mls/hr 10/04/17 22:00 10/04/17 21:53 Levaquin 750mg IVPB 100 mls/hr 2200 MARV Administration Methylprednisolone 40 mg 10/03/17 23:15 10/05/17 05:10 Solu-Medrol IVP 40 mg Q8 MARV Administration Pantoprazole Sodium 40 mg 10/04/17 06:00 10/05/17 05:10 Protonix Ec Tab PO 40 mg 0600 MARV Administration - Patient Studies Lab Studies: Lab Studies 10/05/17 10/05/17 10/05/17 Range/Units 05:00 05:00 00:50 WBC 21.5 H D (4.5-11.0) 10^3/ul RBC 4.94 (3.5-6.1) 10^6/uL Hgb 15.6 (14.0-18.0) g/dL Hct 45.6 (42.0-52.0) % MCV 92.3 (80.0-105.0) fl MCH 31.6 (25.0-35.0) pg MCHC 34.2 (31.0-37.0) g/dl RDW 13.7 (11.5-14.5) % Plt Count 328 (120.0-450.0) 10^3/uL MPV 10.4 (7.0-11.0) fl Gran % 91.9 H (50.0-68.0) % Lymph % (Auto) 3.6 L (22.0-35.0) % Bartholomew % (Auto) 4.5 (1.0-6.0) % Eos % (Auto) 0.0 L (1.5-5.0) % Baso % (Auto) 0.0 (0.0-3.0) % Gran # 19.73 H (1.4-6.5) Lymph # 0.8 L (1.2-3.4) Bartholomew # 1.0 H (0.1-0.6) Eos # 0.0 (0.0-0.7) Baso # 0.01 (0.0-2.0) K/mm3 pCO2 (35-45) mm/Hg pO2 (80-100) mm/Hg HCO3 (21-28) mmol/L ABG pH (7.35-7.45) ABG Total CO2 (22-28) mmol.L ABG O2 Saturation (95-98) % ABG Base Excess (-2.0-3.0) mmol/L ABG Potassium (3.6-5.2) mmol/L Sodium 140 (132-148) mmol/L Chloride 101 (98-107) mmol/L Glucose (75-110) mg/dl Lactate (0.7-2.1) mmol/L FiO2 % Potassium 4.4 (3.6-5.0) mmol/L Carbon Dioxide 29 (21-33) mmol/L Anion Gap 14 (10-20) BUN 21 (7-21) mg/dL Creatinine 0.9 (0.8-1.5) mg/dl Est GFR ( Amer) > 60 Est GFR (Non-Af Amer) > 60 Random Glucose 112 H (70-110) mg/dL Calcium 9.7 (8.4-10.5) mg/dL Total Bilirubin 0.6 (0.2-1.3) mg/dL AST 44 (17-59) U/L ALT 44 (7-56) U/L Alkaline Phosphatase 67 (38-126) U/L Troponin I 0.04 D ng/mL Total Protein 7.7 (5.8-8.3) g/dL Albumin 4.5 (3.0-4.8) g/dL Globulin 3.2 gm/dL Albumin/Globulin Ratio 1.4 (1.1-1.8) Arterial Blood Potassium (3.6-5.2) mmol/L 10/04/17 10/04/17 Range/Units 18:00 14:05 WBC (4.5-11.0) 10^3/ul RBC (3.5-6.1) 10^6/uL Hgb (14.0-18.0) g/dL Hct (42.0-52.0) % MCV (80.0-105.0) fl MCH (25.0-35.0) pg MCHC (31.0-37.0) g/dl RDW (11.5-14.5) % Plt Count (120.0-450.0) 10^3/uL MPV (7.0-11.0) fl Gran % (50.0-68.0) % Lymph % (Auto) (22.0-35.0) % Bartholomew % (Auto) (1.0-6.0) % Eos % (Auto) (1.5-5.0) % Baso % (Auto) (0.0-3.0) % Gran # (1.4-6.5) Lymph # (1.2-3.4) Bartholomew # (0.1-0.6) Eos # (0.0-0.7) Baso # (0.0-2.0) K/mm3 pCO2 42 (35-45) mm/Hg pO2 59.0 L (80-100) mm/Hg HCO3 28.5 H (21-28) mmol/L ABG pH 7.44 (7.35-7.45) ABG Total CO2 29.8 H (22-28) mmol.L ABG O2 Saturation 94.8 L (95-98) % ABG Base Excess 3.9 H (-2.0-3.0) mmol/L ABG Potassium 3.5 L (3.6-5.2) mmol/L Sodium 137.0 (132-148) mmol/L Chloride 106.0 (98-107) mmol/L Glucose 108 (75-110) mg/dl Lactate 0.8 (0.7-2.1) mmol/L FiO2 28.0 % Potassium (3.6-5.0) mmol/L Carbon Dioxide (21-33) mmol/L Anion Gap (10-20) BUN (7-21) mg/dL Creatinine (0.8-1.5) mg/dl Est GFR ( Amer) Est GFR (Non-Af Amer) Random Glucose (70-110) mg/dL Calcium (8.4-10.5) mg/dL Total Bilirubin (0.2-1.3) mg/dL AST (17-59) U/L ALT (7-56) U/L Alkaline Phosphatase (38-126) U/L Troponin I 0.09 D ng/mL Total Protein (5.8-8.3) g/dL Albumin (3.0-4.8) g/dL Globulin gm/dL Albumin/Globulin Ratio (1.1-1.8) Arterial Blood Potassium 3.5 L (3.6-5.2) mmol/L Laboratory Results - last 24 hr 10/04/17 10/04/17 10/05/17 14:05 18:00 00:50 WBC RBC Hgb Hct MCV MCH MCHC RDW Plt Count MPV Gran % Lymph % (Auto) Bartholomew % (Auto) Eos % (Auto) Baso % (Auto) Gran # Lymph # Bartholomew # Eos # Baso # pCO2 42 pO2 59.0 L HCO3 28.5 H ABG pH 7.44 ABG Total CO2 29.8 H ABG O2 Saturation 94.8 L ABG Base Excess 3.9 H ABG Potassium 3.5 L Sodium 137.0 Chloride 106.0 Glucose 108 Lactate 0.8 FiO2 28.0 Potassium Carbon Dioxide Anion Gap BUN Creatinine Est GFR ( Amer) Est GFR (Non-Af Amer) Random Glucose Calcium Total Bilirubin AST ALT Alkaline Phosphatase Troponin I 0.09 D 0.04 D Total Protein Albumin Globulin Albumin/Globulin Ratio Arterial Blood Potassium 3.5 L 10/05/17 10/05/17 05:00 05:00 WBC 21.5 H D RBC 4.94 Hgb 15.6 Hct 45.6 MCV 92.3 MCH 31.6 MCHC 34.2 RDW 13.7 Plt Count 328 MPV 10.4 Gran % 91.9 H Lymph % (Auto) 3.6 L Bartholomew % (Auto) 4.5 Eos % (Auto) 0.0 L Baso % (Auto) 0.0 Gran # 19.73 H Lymph # 0.8 L Bartholomew # 1.0 H Eos # 0.0 Baso # 0.01 pCO2 pO2 HCO3 ABG pH ABG Total CO2 ABG O2 Saturation ABG Base Excess ABG Potassium Sodium 140 Chloride 101 Glucose Lactate FiO2 Potassium 4.4 Carbon Dioxide 29 Anion Gap 14 BUN 21 Creatinine 0.9 Est GFR ( Amer) > 60 Est GFR (Non-Af Amer) > 60 Random Glucose 112 H Calcium 9.7 Total Bilirubin 0.6 AST 44 ALT 44 Alkaline Phosphatase 67 Troponin I Total Protein 7.7 Albumin 4.5 Globulin 3.2 Albumin/Globulin Ratio 1.4 Arterial Blood Potassium EKG/Cardiology Studies: Cardiology / EKG Studies 10/04/17 12:47 EKG [ELECTROCARDIOGRAM] Stat Comment: Reason For Exam: elevated troponin Critical Care Progress Note - Nutrition Nutrition: Nutrition Category Date Time Status Heart Healthy Diet [DIET] Diets 10/04/17 Dinner Ordered Assessment/Plan - Assessment and Plan (Free Text) Assessment: 46 year old male with a PMH of severe persistent asthma who presented to [facility] with complaints of chest tightness with wheezing and shortness of breath for 3 days, found to have asthma COPD overlap syndrome Plan: Neurological AAOx4, nonfocal exam Cardiovascular HD stable Mild elevation in troponins likely demand-supply mismatch, asymptomatic and breathing significantly improved Repeat troponins decreased Echo showed mild concentric LVH and normal EF Management per primary team Pulmnologic ACOS exacerbation improved, off BIPAP and comfortable satting well on 2L NC Cont MARV and PRN nebs Cont levaquin D 2 Cont IV solumedorl [id number] Cont to monitor closely, maintain O2 Sat >92% GI On HH diet Cont GI ppx w/ protonix Nephro/Electrolytes Following IxOs, no change in renal function Following eletrolytes, no abnormalities at this time Heme HD stable No active bleeding ID Afebrile Leukocytosis likely 2/2 IV steroids On levaquin D2 Cont to monitor Dispo: patient clinically improved significantly, stable for transfer to remote telemetry. Management per primary team. Discussed with them. Patient was seen and examined and case was discussed at length with attending physician. - Date & Time Date: 10/05/17 Time: 07:15 <Shahab Langley - Last Filed: 10/05/17 15:13> CCU Objective - Vital Signs / Intake & Output Vital Signs (Last 4 hours): Vital Signs Pulse 10/05/17 13:46 87 Intake and Output (Last 8hrs): Intake & Output 10/05/17 10/05/17 10/05/17 06:59 14:59 22:59 Intake Total 360 Balance 360 Intake: Oral 360 Other: # Voids Urine, Voided 2 # Bowel Movements 1 - Medications Active Medications: Active Medications Generic Name Dose Route Start Last Admin Trade Name Freq PRN Reason Stop Dose Admin Albuterol/Ipratropium 3 ml 10/04/17 11:30 10/05/17 15:02 Duoneb 3 Mg/0.5 Mg (3 Ml) Ud IH Not Given [id number] MARV Albuterol/Ipratropium 3 ml 10/04/17 07:50 10/05/17 13:40 Duoneb 3 Mg/0.5 Mg (3 Ml) Ud IH 3 ml Q2H PRN Administration Shortness of Breath Aspirin 81 mg 10/05/17 14:45 Ecotrin PO DAILY MARV Atorvastatin Calcium 20 mg 10/05/17 17:00 Lipitor PO DIN MARV Enoxaparin Sodium 40 mg 10/04/17 10:00 10/05/17 08:49 Lovenox SC 40 mg DAILY MARV Administration Protocol Levofloxacin/Dextrose 750 mg in 150 mls @ 100 mls/hr 10/04/17 22:00 10/04/17 21:53 Levaquin 750mg IVPB 100 mls/hr 2200 MARV Administration Methylprednisolone 40 mg 10/03/17 23:15 10/05/17 13:20 Solu-Medrol IVP 40 mg Q8 MARV Administration Pantoprazole Sodium 40 mg 10/04/17 06:00 10/05/17 05:10 Protonix Ec Tab PO 40 mg 0600 MARV Administration - Patient Studies Lab Studies: Microbiology Studies 10/04/17 08:40 MRSA Culture (Admit) - Final Nose MRSA NOT DETECTED Lab Studies 10/05/17 10/05/17 10/05/17 Range/Units 05:00 05:00 00:50 WBC 21.5 H D (4.5-11.0) 10^3/ul RBC 4.94 (3.5-6.1) 10^6/uL Hgb 15.6 (14.0-18.0) g/dL Hct 45.6 (42.0-52.0) % MCV 92.3 (80.0-105.0) fl MCH 31.6 (25.0-35.0) pg MCHC 34.2 (31.0-37.0) g/dl RDW 13.7 (11.5-14.5) % Plt Count 328 (120.0-450.0) 10^3/uL MPV 10.4 (7.0-11.0) fl Gran % 91.9 H (50.0-68.0) % Lymph % (Auto) 3.6 L (22.0-35.0) % Bartholomew % (Auto) 4.5 (1.0-6.0) % Eos % (Auto) 0.0 L (1.5-5.0) % Baso % (Auto) 0.0 (0.0-3.0) % Gran # 19.73 H (1.4-6.5) Lymph # 0.8 L (1.2-3.4) Bartholomew # 1.0 H (0.1-0.6) Eos # 0.0 (0.0-0.7) Baso # 0.01 (0.0-2.0) K/mm3 Sodium 140 (132-148) mmol/L Potassium 4.4 (3.6-5.0) mmol/L Chloride 101 (98-107) mmol/L Carbon Dioxide 29 (21-33) mmol/L Anion Gap 14 (10-20) BUN 21 (7-21) mg/dL Creatinine 0.9 (0.8-1.5) mg/dl Est GFR ( Amer) > 60 Est GFR (Non-Af Amer) > 60 Random Glucose 112 H (70-110) mg/dL Calcium 9.7 (8.4-10.5) mg/dL Total Bilirubin 0.6 (0.2-1.3) mg/dL AST 44 (17-59) U/L ALT 44 (7-56) U/L Alkaline Phosphatase 67 (38-126) U/L Troponin I 0.04 D ng/mL Total Protein 7.7 (5.8-8.3) g/dL Albumin 4.5 (3.0-4.8) g/dL Globulin 3.2 gm/dL Albumin/Globulin Ratio 1.4 (1.1-1.8) 10/04/17 Range/Units 18:00 WBC (4.5-11.0) 10^3/ul RBC (3.5-6.1) 10^6/uL Hgb (14.0-18.0) g/dL Hct (42.0-52.0) % MCV (80.0-105.0) fl MCH (25.0-35.0) pg MCHC (31.0-37.0) g/dl RDW (11.5-14.5) % Plt Count (120.0-450.0) 10^3/uL MPV (7.0-11.0) fl Gran % (50.0-68.0) % Lymph % (Auto) (22.0-35.0) % Bartholomew % (Auto) (1.0-6.0) % Eos % (Auto) (1.5-5.0) % Baso % (Auto) (0.0-3.0) % Gran # (1.4-6.5) Lymph # (1.2-3.4) Bartholomew # (0.1-0.6) Eos # (0.0-0.7) Baso # (0.0-2.0) K/mm3 Sodium (132-148) mmol/L Potassium (3.6-5.0) mmol/L Chloride (98-107) mmol/L Carbon Dioxide (21-33) mmol/L Anion Gap (10-20) BUN (7-21) mg/dL Creatinine (0.8-1.5) mg/dl Est GFR ( Amer) Est GFR (Non-Af Amer) Random Glucose (70-110) mg/dL Calcium (8.4-10.5) mg/dL Total Bilirubin (0.2-1.3) mg/dL AST (17-59) U/L ALT (7-56) U/L Alkaline Phosphatase (38-126) U/L Troponin I 0.09 D ng/mL Total Protein (5.8-8.3) g/dL Albumin (3.0-4.8) g/dL Globulin gm/dL Albumin/Globulin Ratio (1.1-1.8) Laboratory Results - last 24 hr 10/04/17 10/05/17 10/05/17 18:00 00:50 05:00 WBC 21.5 H D RBC 4.94 Hgb 15.6 Hct 45.6 MCV 92.3 MCH 31.6 MCHC 34.2 RDW 13.7 Plt Count 328 MPV 10.4 Gran % 91.9 H Lymph % (Auto) 3.6 L Bartholomew % (Auto) 4.5 Eos % (Auto) 0.0 L Baso % (Auto) 0.0 Gran # 19.73 H Lymph # 0.8 L Bartholomew # 1.0 H Eos # 0.0 Baso # 0.01 Sodium Potassium Chloride Carbon Dioxide Anion Gap BUN Creatinine Est GFR ( Amer) Est GFR (Non-Af Amer) Random Glucose Calcium Total Bilirubin AST ALT Alkaline Phosphatase Troponin I 0.09 D 0.04 D Total Protein Albumin Globulin Albumin/Globulin Ratio 10/05/17 05:00 WBC RBC Hgb Hct MCV MCH MCHC RDW Plt Count MPV Gran % Lymph % (Auto) Bartholomew % (Auto) Eos % (Auto) Baso % (Auto) Gran # Lymph # Bartholomew # Eos # Baso # Sodium 140 Potassium 4.4 Chloride 101 Carbon Dioxide 29 Anion Gap 14 BUN 21 Creatinine 0.9 Est GFR ( Amer) > 60 Est GFR (Non-Af Amer) > 60 Random Glucose 112 H Calcium 9.7 Total Bilirubin 0.6 AST 44 ALT 44 Alkaline Phosphatase 67 Troponin I Total Protein 7.7 Albumin 4.5 Globulin 3.2 Albumin/Globulin Ratio 1.4 Critical Care Progress Note - Nutrition Nutrition: Nutrition Category Date Time Status Heart Healthy Diet [DIET] Diets 10/04/17 Dinner Ordered Attending/Attestation - Attestation I have personally seen and examined this patient.: Yes I have fully participated in the care of the patient.: Yes I have reviewed all pertinent clinical information: Yes Notes (Text): 10/05/17 15:12 46 yo male with severe asthma exacerbation, who substantially improved respiratory calvin. No wheezing, no shortness of breath. Continue bronchodilators , steroid taper, abx, BPAP at night. DVT/GI prophylaxis ccm time 40 min
--- NOTE | 2017-10-05 12:16 | CP.PCM.PN ---
<Kali Muller - Last Filed: 10/05/17 12:29> Subjective - Date & Time of Evaluation Date of Evaluation: 10/05/17 Time of Evaluation: 08:30 - Subjective Subjective: Patient seen and evaluated in ICU at bedside. No acute events reported overnight. Patient resting comfortably in bed. Patient did wear BiPAP for portion of last evening and yesterday with improvement in respiratory acidosis. Patient reports improved respiration effort at this time but still admits to some wheezing and breathing discomfort. Patient denies chest pain, nausea, fever , chills, cough, abdominal discomfort, diarrhea or constipation. Objective - Vital Signs/Intake and Output Vital Signs (last 24 hours): Temp Pulse Resp BP Pulse Ox 98.2 F 91 H 32 H 121/63 96 10/05/17 07:00 10/05/17 08:51 10/05/17 08:51 10/05/17 08:51 10/05/17 02:40 - Medications Medications: Current Medications Albuterol/Ipratropium (Duoneb 3 Mg/0.5 Mg (3 Ml) Ud) 3 ml IH [id number] [facility] Last Admin: 10/05/17 11:08 Dose: Not Given Albuterol/Ipratropium (Duoneb 3 Mg/0.5 Mg (3 Ml) Ud) 3 ml IH Q2H PRN PRN Reason: Shortness of Breath Last Admin: 10/04/17 09:25 Dose: 3 ml Enoxaparin Sodium (Lovenox) 40 mg SC DAILY [facility] PRN Reason: Protocol Last Admin: 10/05/17 08:49 Dose: 40 mg Levofloxacin/Dextrose (Levaquin 750mg) 750 mg in 150 mls @ 100 mls/hr IVPB 2200 [facility] Last Admin: 10/04/17 21:53 Dose: 100 mls/hr Methylprednisolone (Solu-Medrol) 40 mg IVP Q8 [facility] Last Admin: 10/05/17 05:10 Dose: 40 mg Pantoprazole Sodium (Protonix Ec Tab) 40 mg PO 0600 [facility] Last Admin: 10/05/17 05:10 Dose: 40 mg - Labs Labs: 10/05/17 05:00 10/05/17 05:00 - Constitutional Appears: Well, No Acute Distress - Head Exam Head Exam: ATRAUMATIC, NORMAL INSPECTION, NORMOCEPHALIC - Eye Exam Eye Exam: EOMI, PERRL - ENT Exam ENT Exam: Mucous Membranes Moist - Neck Exam Neck Exam: Full ROM - Respiratory Exam Respiratory Exam: Wheezes, NORMAL BREATHING PATTERN. absent: Rales, Rhonchi - Cardiovascular Exam Cardiovascular Exam: REGULAR RHYTHM, +S1, +S2. absent: Murmur - GI/Abdominal Exam GI & Abdominal Exam: Soft, Normal Bowel Sounds. absent: Firm, Guarding, Tenderness - Extremities Exam Extremities Exam: Normal Capillary Refill. absent: Calf Tenderness, Pedal Edema - Back Exam Back Exam: NORMAL INSPECTION - Neurological Exam Neurological Exam: Alert, Awake, Oriented x3 - Psychiatric Exam Psychiatric exam: Normal Affect, Normal Mood - Skin Skin Exam: Dry, Intact. absent: Rash Assessment and Plan (1) Asthma exacerbation Status: Acute (2) Shortness of breath Status: Acute - Assessment and Plan (Free Text) Assessment: Patient is a 46 year old male with past medical history significant for persistent asthma who is admitted for asthma exacerbation. Patient able to tolerate BiPAP with improvement in respiratory acidosis. Patient breathing status stable at this time and will continue to monitor once transferred to [facility]. Plan: 1. Asthma exacerbation - Likely etiology: non compliance, smoking, cold weather exposure - CXR: hyperinflated lung de [place] - Solumedrol 40mg IV Q8H - Duoneb Q4H MARV, Q2H PRN - Levaquin Day 2 - BiPAP - O2 NC with SaO2 goal >92% - ABG showing improvement and resolution of resp acidosis - Legionella pending, strep pneumo f/u, UDS f/u - Patient requesting to not be intubated - Patient to be transferred back to [facility], continue to monitor resp status 2. Elevated Troponin - resolved - Troponin elevated yesterday with down trend - Due to demand ischemia - EKG on admission NSR, no ST elevations/depressions - Echo showing normal EF with mild concentric LVH 3. Leukocytosis - Elevated secondary to IV steroids - Levaquin Day 2 - Pneumo, Legionella pending - Continue to monitor 4. Tobacco abuse - Smoking cessation education - Patient agreeable and understanding GI PPX: Protonix DVT: Lovenox Case and plan discussed with attending <Jose A López - Last Filed: 10/05/17 14:35> Objective - Vital Signs/Intake and Output Vital Signs (last 24 hours): Temp Pulse Resp BP Pulse Ox 98.2 F 87 32 H 121/63 96 10/05/17 07:00 10/05/17 13:46 10/05/17 08:51 10/05/17 08:51 10/05/17 02:40 - Medications Medications: Current Medications Albuterol/Ipratropium (Duoneb 3 Mg/0.5 Mg (3 Ml) Ud) 3 ml IH [id number] [facility] Last Admin: 10/05/17 11:08 Dose: Not Given Albuterol/Ipratropium (Duoneb 3 Mg/0.5 Mg (3 Ml) Ud) 3 ml IH Q2H PRN PRN Reason: Shortness of Breath Last Admin: 10/05/17 13:40 Dose: 3 ml Enoxaparin Sodium (Lovenox) 40 mg SC DAILY MARV PRN Reason: Protocol Last Admin: 10/05/17 08:49 Dose: 40 mg Levofloxacin/Dextrose (Levaquin 750mg) 750 mg in 150 mls @ 100 mls/hr IVPB 2200 [facility] Last Admin: 10/04/17 21:53 Dose: 100 mls/hr Methylprednisolone (Solu-Medrol) 40 mg IVP Q8 [facility] Last Admin: 10/05/17 13:20 Dose: 40 mg Pantoprazole Sodium (Protonix Ec Tab) 40 mg PO 0600 [facility] Last Admin: 10/05/17 05:10 Dose: 40 mg - Labs Labs: 10/05/17 05:00 10/05/17 05:00 Attending/Attestation - Attestation I have personally seen and examined this patient.: Yes I have fully participated in the care of the patient.: Yes I have reviewed all pertinent clinical information, including history, physical exam and plan: Yes Notes (Text): 10/05/17 14:33 Patient was seen and examined with medical billing supervisor. Agreed with resident assessment and plan. 46 yrs old male with PMH of asthma, chronic smoking is admitted with hypercapnic Respiratory failure due to asthma exacerbation, improved on BIPAP. He is alert ,awake and oriented.He is still wheezing but improved. We will continue Neb/IV steroid and antibiotics. Elevated troponin is likely due to demand ischemia, Echo showed normal systolic function, will start on Aspirin 81 mg po daily and lipitor 20 mg po qhs, we will check lipid profile, will need ischemia work up once acute process is resolved.We will get cardiology consultation. Management plan was discussed in detail with patient Education was provided.
[2017-10-05] MEDS: Albuterol-Ipratrop 3 mg / 0.5 (3 ml) UD IH PRN (13:40)
[2017-10-05 18:13] VITALS: PULSE 98
--- NOTE | 2017-10-05 19:55 | CP.PCM.PN ---
<Jamie Cross - Last Filed: 10/05/17 19:49> Subjective - Date & Time of Evaluation Date of Evaluation: 10/05/17 Time of Evaluation: 19:40 - Subjective Subjective: AMA Note 46 M with a PMHx severe persistent Asthma admitted with severe persistent asthma admitted with an acute asthma exacerbation due to multiple factors ( noncompliance with medications/continued tobacco smoking/marijuana smoking/ exposure to the cold weather). Pt stated he wished to leave AMA on the premise that he has "important things to take care of". Pt was educated and counselled on the importance of the treatment he is receiving here in the hospital and was encouraged to continue medical treatment. However, pt was adamant about leaving. Pt was made aware of the risks involved with leaving AMA which include and are not limited to respiratory failure, infections, sepsis, and . Pt is AAOx3 and fully understood the risks involved and decided to leave AMA, regardless. Objective - Vital Signs/Intake and Output Vital Signs (last 24 hours): Temp Pulse Resp BP Pulse Ox 98.2 F 98 H 32 H 121/63 96 10/05/17 07:00 10/05/17 18:00 10/05/17 08:51 10/05/17 08:51 10/05/17 02:40 Intake and Output: 10/05/17 10/06/17 18:59 06:59 Intake Total 360 Balance 360 - Medications Medications: Current Medications Albuterol/Ipratropium (Duoneb 3 Mg/0.5 Mg (3 Ml) Ud) 3 ml IH [id number] [facility] Last Admin: 10/05/17 15:02 Dose: Not Given Albuterol/Ipratropium (Duoneb 3 Mg/0.5 Mg (3 Ml) Ud) 3 ml IH Q2H PRN PRN Reason: Shortness of Breath Last Admin: 10/05/17 13:40 Dose: 3 ml Aspirin (Ecotrin) 81 mg PO DAILY [facility] Last Admin: 10/05/17 18:24 Dose: 81 mg Atorvastatin Calcium (Lipitor) 20 mg PO DIN [facility] Last Admin: 10/05/17 18:24 Dose: 20 mg Enoxaparin Sodium (Lovenox) 40 mg SC DAILY [facility] PRN Reason: Protocol Last Admin: 10/05/17 08:49 Dose: 40 mg Levofloxacin/Dextrose (Levaquin 750mg) 750 mg in 150 mls @ 100 mls/hr IVPB 2200 [facility] Last Admin: 10/04/17 21:53 Dose: 100 mls/hr Methylprednisolone (Solu-Medrol) 40 mg IVP Q8 [facility] Last Admin: 10/05/17 13:20 Dose: 40 mg Pantoprazole Sodium (Protonix Ec Tab) 40 mg PO 0600 [facility] Last Admin: 10/05/17 05:10 Dose: 40 mg - Labs Labs: 10/05/17 05:00 10/05/17 05:00 - Constitutional Appears: No Acute Distress - Head Exam Head Exam: ATRAUMATIC, NORMAL INSPECTION, NORMOCEPHALIC - Eye Exam Eye Exam: EOMI, Normal appearance, PERRL Pupil Exam: NORMAL ACCOMODATION, PERRL - ENT Exam ENT Exam: Mucous Membranes Moist, Normal Exam - Neck Exam Neck Exam: Full ROM, Normal Inspection. absent: Lymphadenopathy - Respiratory Exam Respiratory Exam: Clear to Ausculation Bilateral, Wheezes, NORMAL BREATHING PATTERN - Cardiovascular Exam Cardiovascular Exam: Tachycardia, +S1, +S2. absent: Murmur - GI/Abdominal Exam GI & Abdominal Exam: Soft, Normal Bowel Sounds. absent: Tenderness - Neurological Exam Neurological Exam: Alert, Awake, CN II-XII Intact, Normal Gait, Oriented x3 - Psychiatric Exam Psychiatric exam: Anxious - Skin Skin Exam: Dry, Intact, Normal Color, Warm <Nigel - Last Filed: 10/05/17 20:28> Objective - Vital Signs/Intake and Output Vital Signs (last 24 hours): Temp Pulse Resp BP Pulse Ox 98.2 F 98 H 32 H 121/63 96 10/05/17 07:00 10/05/17 18:00 10/05/17 08:51 10/05/17 08:51 10/05/17 02:40 Intake and Output: 10/05/17 10/06/17 18:59 06:59 Intake Total 360 Balance 360 - Medications Medications: Current Medications Albuterol/Ipratropium (Duoneb 3 Mg/0.5 Mg (3 Ml) Ud) 3 ml IH [id number] [facility] Last Admin: 10/05/17 20:08 Dose: Not Given Albuterol/Ipratropium (Duoneb 3 Mg/0.5 Mg (3 Ml) Ud) 3 ml IH Q2H PRN PRN Reason: Shortness of Breath Last Admin: 10/05/17 13:40 Dose: 3 ml Aspirin (Ecotrin) 81 mg PO DAILY [facility] Last Admin: 10/05/17 18:24 Dose: 81 mg Atorvastatin Calcium (Lipitor) 20 mg PO DIN [facility] Last Admin: 10/05/17 18:24 Dose: 20 mg Enoxaparin Sodium (Lovenox) 40 mg SC DAILY [facility] PRN Reason: Protocol Last Admin: 10/05/17 08:49 Dose: 40 mg Levofloxacin/Dextrose (Levaquin 750mg) 750 mg in 150 mls @ 100 mls/hr IVPB 2200 [facility] Last Admin: 10/04/17 21:53 Dose: 100 mls/hr Methylprednisolone (Solu-Medrol) 40 mg IVP Q8 [facility] Last Admin: 10/05/17 13:20 Dose: 40 mg Pantoprazole Sodium (Protonix Ec Tab) 40 mg PO 0600 [facility] Last Admin: 10/05/17 05:10 Dose: 40 mg - Labs Labs: 10/05/17 05:00 10/05/17 05:00 Attending/Attestation - Attestation I have personally seen and examined this patient.: No I have fully participated in the care of the patient.: Yes I have reviewed all pertinent clinical information, including history, physical exam and plan: Yes Notes (Text): 10/05/17 20:28 Agree with .
== END 2017-10-05 21:09 | disposition home or self-care (01) | DRG 588 ==
LOC: ED 20:20 → ERH 22:04 → 3RNO 10-04 00:33 → CCU 10-04 08:12 → 3RNO 10-05 09:10
PROVIDERS: ADMIT Internal Medicine; ATTEND Internal Medicine
PROC: 5A09457 Assistance with Respiratory Ventilation, 24-96 Consecutive Hours, Continuous Positive Airway Pressure (ICD-10-PCS; principal; 2017-10-04)
PROC: 3E0F7GC Introduction of Other Therapeutic Substance into Respiratory Tract, Via Natural or Artificial Opening (ICD-10-PCS; 2017-10-04)
DX: J45.51 Severe persistent asthma with (acute) exacerbation (principal); J96.92 Respiratory failure, unspecified with hypercapnia; E87.2 Acidosis; J44.9 Chronic obstructive pulmonary disease, unspecified; F17.210 Nicotine dependence, cigarettes, uncomplicated; K21.9 Gastro-esophageal reflux disease without esophagitis; F12.90 Cannabis use, unspecified, uncomplicated; Z91.14 Patient's other noncompliance with medication regimen

== ENCOUNTER 2018-05-05 19:31 | Inpatient (IN) | payer MEDICAID ==
[2018-05-05 19:53] VITALS: BMI 29.0
[2018-05-05] MEDS ORDERED: Sodium Chloride 0.9% 1,000 ML IV SCH (20:00)
[2018-05-05] MEDS ORDERED: HYDROmorphone 0.5 mg/0.5 ml ISec IVP STA ×2 (20:00→20:37)
[2018-05-05 20:48] LABS: BASO # 0.03 K/mm3 (0.0-2.0); BASO % 0.2 % (0.0-3.0); EOS # 0.4 (0.0-0.7); EOS % 2.8 % (1.5-5.0); GRAN # 9.91 (1.4-6.5); GRAN % 77.1 % (50.0-68.0); HEMOGLOBIN 15.9 g/dL (14.0-18.0); LYMPH # 1.9 (1.2-3.4); LYMPH % 14.5 % (22.0-35.0); MEAN CELL VOLUME 94.3 fl (80.0-105.0); MEAN CORPUSCULAR HEMOGLOBIN 32.6 pg (25.0-35.0); MEAN CORPUSCULAR HGB CONC 34.6 g/dl (31.0-37.0); MEAN PLATELET VOLUME 10.4 fl (7.0-11.0); MONO # 0.7 (0.1-0.6); MONO % 5.4 % (1.0-6.0); RBC 4.87 10^6/uL (3.5-6.1); WHITE BLOOD COUNT 12.9 10^3/ul (4.5-11.0)
[2018-05-05 20:58] LABS: ALB/GLOB RATIO 1.5 (1.1-1.8); ALBUMIN 4.4 g/dL (3.0-4.8); ALT/SGPT 36 U/L (7-56); AMYLASE 87 U/L (35-125); AST/SGOT 31 U/L (17-59); BLOOD UREA NITROGEN 16 mg/dL (7-21); CALCIUM 8.7 mg/dL (8.4-10.5); GFR AFRICAN-AMERICAN > 60; GFR NON-AFRICAN AMERICAN > 60; LIPASE 100 U/L (23-300)
--- NOTE | 2018-05-05 21:00 | CP.PCM.CON ---
History of Present Illness - History of Present Illness History of Present Illness: General surgery consult note for Dr. Marissa Simon, PGY-1 Pt S & E at bedside at 2045 47M w/PMH sig for left inguinal hernia x 1 yr. Pt reports hernia usually reducible by self. Was ambulating around 2pm when hernia recurred. Pt was unable to reduce it. Hernia became painful, "throbbing", severe, non radiating , constant. No alleviating factors identified. Aggravated by touch/pressure. Denies N & V, F & C, constipation, diarrhea, changes in urinary habits, dizziness, CP, SOB, other complaints. PMH: Left inguinal hernia, asthma PSH: Tonsillectomy All: PCN SH: Admits to tobacco use 1/2 pack per week x 20 yrs, ETOH use- #2 drinks weekly , occasional MJ use Review of Systems - Review of Systems All systems: reviewed and no additional remarkable complaints except - Constitutional Constitutional: absent: Chills, Fever, Headache, Weakness - EENT Eyes: absent: Change in Vision Ears: absent: Dizziness Nose/Mouth/Throat: absent: Sore Throat - Cardiovascular Cardiovascular: absent: Chest Pain - Respiratory Respiratory: absent: Cough - Gastrointestinal Gastrointestinal: absent: Abdominal Pain, Constipation, Diarrhea, Hematemesis, Hematochezia, Nausea, Vomiting - Genitourinary Genitourinary: absent: Change in Urinary Stream, Dysuria, Flank Pain, Hematuria - Musculoskeletal Musculoskeletal: absent: Back Pain, Numbness, Tingling - Integumentary Integumentary: absent: New Lesions - Neurological Neurological: absent: Dizziness - Psychiatric Psychiatric: absent: Change in Appetite Past Patient History - Infectious Disease Hx of Infectious Diseases: None - Past Social History Smoking Status: Current Some Days Smoker - CARDIAC Hx Cardiac Disorders: No - PULMONARY Hx Respiratory Disorders: Yes Hx Asthma: Yes - NEUROLOGICAL Hx Neurological Disorder: No - HEENT Hx HEENT Problems: No - RENAL Hx Chronic Kidney Disease: No - ENDOCRINE/METABOLIC Hx Endocrine Disorders: No - HEMATOLOGICAL/ONCOLOGICAL Hx Blood Disorders: No - INTEGUMENTARY Hx Dermatological Problems: No - MUSCULOSKELETAL/RHEUMATOLOGICAL Hx Falls: No - GASTROINTESTINAL Hx Gastrointestinal Disorders: Yes Hx Gastroesophageal Reflux: Yes Other/Comment: pt states he has a hernia but never followed up - GENITOURINARY/GYNECOLOGICAL Hx Genitourinary Disorders: No Hx Prostate Problems: Yes (BPH) Hx Urinary Tract Infection: Yes - PSYCHIATRIC Hx Psychophysiologic Disorder: No Hx Substance Use: No - SURGICAL HISTORY Other/Comment: tonsillectomy - ANESTHESIA Hx Anesthesia: Yes Hx Anesthesia Reactions: No Hx Malignant Hyperthermia: No Meds Allergies/Adverse Reactions: Allergies Allergy/AdvReac Type Severity Reaction Status Date / Time Penicillins Allergy Severe SWELLING Verified 05/05/18 19:53 seafoods Allergy Mild ITCHING Uncoded 05/05/18 19:53 - Medications Medications: Current Medications Sodium Chloride (Sodium Chloride 0.9%) 1,000 mls @ 80 mls/hr IV .[id number] [facility] Last Admin: 05/05/18 20:15 Dose: 80 mls/hr Physical Exam - Constitutional Appears: Non-toxic, No Acute Distress - Head Exam Head Exam: ATRAUMATIC, NORMAL INSPECTION, NORMOCEPHALIC - Eye Exam Eye Exam: EOMI, Normal appearance - ENT Exam ENT Exam: Mucous Membranes Moist, Normal Exam - Neck Exam Neck exam: Positive for: Full Rom, Normal Inspection - Respiratory Exam Respiratory Exam: Wheezes, NORMAL BREATHING PATTERN. absent: Respiratory Distress - Cardiovascular Exam Cardiovascular Exam: REGULAR RHYTHM, +S1, +S2 - GI/Abdominal Exam GI & Abdominal Exam: Hernia (left inguinal hernia, tender to palpation), Normal Bowel Sounds, Soft. absent: Distended, Firm, Guarding - Rectal Exam Rectal Exam: Deferred (pt declined) - Extremities Exam Extremities exam: Positive for: normal inspection - Neurological Exam Neurological exam: Alert, CN II-XII Intact, Oriented x3 - Psychiatric Exam Psychiatric exam: Normal Affect, Normal Mood - Skin Skin Exam: Dry, Intact, Normal Color, Warm Results - Vital Signs Recent Vital Signs: Last Vital Signs Temp 97.8 F 05/05/18 19:56 Pulse 75 05/05/18 19:56 Resp 18 05/05/18 19:56 BP 154/94 H 05/05/18 19:56 Pulse Ox 97 05/05/18 19:56 - Labs Result Diagrams: 05/05/18 20:34 05/05/18 20:34 Labs: Laboratory Results - last 24 hr 05/05/18 20:34 WBC 12.9 H D RBC 4.87 Hgb 15.9 Hct 45.9 MCV 94.3 MCH 32.6 MCHC 34.6 RDW 13.0 Plt Count 314 MPV 10.4 Gran % 77.1 H Lymph % (Auto) 14.5 L [place] % (Auto) 5.4 Eos % (Auto) 2.8 Baso % (Auto) 0.2 Gran # 9.91 H Lymph # (Auto) 1.9 [place] # (Auto) 0.7 H Eos # (Auto) 0.4 Baso # (Auto) 0.03 Assessment & Plan - Assessment and Plan (Free Text) Assessment: 47M w/incarcerated left inguinal hernia Plan: ice to area pain control attempted bedside reduction x 2- unsuccessful NPO OR tonight Consent in chart Type and screen Consented for blood DW attending [place], PGY-1 - Date & Time Date: 05/05/18 Time: 21:00
[2018-05-05 21:07] LABS: TROPONIN I < 0.01 ng/mL
[2018-05-05 21:09] LABS: INR 1.01 (0.93-1.08); PARTIAL THROMBOPLASTIN TIME 28.6 Seconds (25.1-36.5); PROTHROMBIN TIME 11.5 SECONDS (9.4-12.5)
--- NOTE | 2018-05-05 21:25 | ED PDOC ---
Arrival/HPI - General Chief Complaint: Groin Pain Time Seen by Provider: 05/05/18 19:53 Historian: Patient - History of Present Illness Narrative History of Present Illness (Text): 05/05/18 19:55 Mitesh Ballard Jr is a 47 year old male, whose past medical history includes left inguinal hernia and asthma, who presents to the Emergency department complaining of left inguinal hernia. Patient states he developed worsening left inguinal hernia pain today, worsened with palpation. Patient denies any fever, chills, abdominal pain, nausea, vomiting, diarrhea, urinary symptoms, testicular pain, or any other complaints. Symptom Onset: Gradual Symptom Course: Worsening Activities at Onset: Light Context: Home Past Medical History - Provider Review Nursing Documentation Reviewed: Yes - Infectious Disease Hx of Infectious Diseases: None - Cardiac Hx Cardiac Disorders: No - Pulmonary Hx Respiratory Disorders: Yes Hx Asthma: Yes - Neurological Hx Neurological Disorder: No - HEENT Hx HEENT Disorder: No - Renal Hx Renal Disorder: No - Endocrine/Metabolic Hx Endocrine Disorders: No - Hematological/Oncological Hx Blood Disorders: No - Integumentary Hx Dermatological Disorder: No - Musculoskeletal/Rheumatological Hx Falls: No - Gastrointestinal Hx Gastrointestinal Disorders: Yes Hx Gastroesophageal Reflux: Yes Other/Comment: pt states he has a hernia but never followed up - Genitourinary/Gynecological Hx Genitourinary Disorders: No Hx Prostate Problems: Yes (BPH) Hx Urinary Tract Infection: Yes - Psychiatric Hx Psychophysiologic Disorder: No Hx Substance Use: No - Surgical History Other/Comment: tonsillectomy - Anesthesia Hx Anesthesia: Yes Hx Anesthesia Reactions: No Hx Malignant Hyperthermia: No Family/Social History - Physician Review Nursing Documentation Reviewed: Yes Family/Social History: Unknown Family HX Smoking Status: Current Some Days Smoker Hx Alcohol Use: Yes (social) Hx Substance Use: No Allergies/Home Meds Allergies/Adverse Reactions: Allergies Penicillins Allergy (Severe, Verified 05/05/18 19:53) SWELLING seafoods Allergy (Mild, Uncoded 05/05/18 19:53) ITCHING Review of Systems - Physician Review All systems were reviewed & negative as marked: Yes - Review of Systems Constitutional: Normal. absent: Fevers Eyes: Normal ENT: Normal Respiratory: Normal. absent: SOB, Cough Cardiovascular: Normal. absent: Chest Pain Gastrointestinal: Normal Genitourinary Male: Other (+left inguinal hernia pain). absent: Dysuria, Frequency, Hematuria, Urinary Output Changes Musculoskeletal: Normal. absent: Neck Pain Skin: Normal. absent: Rash Neurological: Normal. absent: Headache, Dizziness Endocrine: Normal Hemo/Lymphatic: Normal Psychiatric: Normal Physical Exam Vital Signs Reviewed: Yes Vital Signs Temp Pulse Resp BP Pulse Ox 05/05/18 23:32 68 18 134/85 100 05/05/18 19:56 97.8 F 75 18 154/94 H 97 Temperature: Afebrile Blood Pressure: Hypertensive Pulse: Regular Respiratory Rate: Normal Appearance: Positive for: Well-Appearing, Non-Toxic Mental Status: Positive for: Alert and Oriented X 3 - Systems Exam Head: Present: Atraumatic, Normocephalic Pupils: Present: PERRL Extroacular Muscles: Present: EOMI Conjunctiva: Present: Normal Mouth: Present: Moist Mucous Membranes Neck: Present: Normal Range of Motion Respiratory/Chest: Present: Clear to Auscultation, Good Air Exchange. No: Respiratory Distress, Accessory Muscle Use Cardiovascular: Present: Regular Rate and Rhythm, Normal S1, S2. No: Murmurs Abdomen: No: Tenderness, Distention, Peritoneal Signs Genitourinary Male: Present: Hernias (Left inguinal hernia, tender to palpation) Back: Present: Normal Inspection Upper Extremity: Present: Normal Inspection. No: Cyanosis, Edema Lower Extremity: Present: Normal Inspection. No: Edema Neurological: Present: GCS=15, CN II-XII Intact, Speech Normal Skin: Present: Warm, Dry, Normal Color. No: Rashes Psychiatric: Present: Alert, Oriented x 3, Normal Insight, Normal Concentration Medical Decision Making ED Course and Treatment: 05/05/18 19:55 Impression: 47 year old male complaining of worsening left inguinal hernia today. Differential Diagnosis included but are not limited to: incarcerated hernia Plan: -- CT Abdomen and Pelvis -- EKG -- Labs, cardiac enzymes, amylase, lipase -- UA -- Zofran -- Dilaudid -- IV fluids -- Reassess and disposition Prior Visits: Notes and results from previous visits were reviewed. Progress Notes: Reviewed EKG, NSR at [address] bpm[address] Non-specific ST/T wave changes. 05/05/18 20:55 Case discussed with manager surgical assembler production line, who is aware and agrees to evaluate pt. 05/05/18 22:31 Attempts to reduce inguinal hernia by manager surgical were unsuccessful. Pt will go to the OR tonight for surgical intervention. 05/05/18 23:00 Case discussed with medical records secretary, who is aware and agrees with plan. 05/05/18 23:[address] Martinez, who is aware and agrees with plan. Accepts pt in to hospitalist service. Pt will be admitted to [facility] for incarcerated hernia. 05/05/18 23:50 Pt taken to OR. 05/06/18 00:13 Reviewed radiology, CT Abdomen and Pelvis shows: Lung bases: Unremarkable. No mass. No consolidation. ABDOMEN: Liver: Unremarkable. No suspicious lesions are seen. Gallbladder and bile ducts: Unremarkable. No calcified stones. No ductal dilation. No significant wall thickening. Pancreas: Unremarkable. No ductal dilation. Spleen: Unremarkable. No splenomegaly. Adrenals: Unremarkable. No mass. Kidneys and ureters: Unremarkable. No obstructing stones. No hydronephrosis. Stomach and bowel: The prominent left inguinal hernia seen causing bowel loops causing moderate obstruction. No obstructed loops are slightly thickened and edematous and therefore ischemic changes were strangulation cannot be excluded. The hernia extends into the left scrotal sac. PELVIS: Appendix: No findings to suggest acute appendicitis. Bladder: Unremarkable. No stones. Reproductive: Unremarkable as visualized. ABDOMEN and PELVIS: Intraperitoneal space: Unremarkable. No free air. No significant fluid collection. Bones/joints: No acute fracture. No dislocation. Soft tissues: See above. Vasculature: Unremarkable. No abdominal aortic aneurysm. Lymph nodes: Unremarkable. No enlarged lymph nodes. IMPRESSION: A prominent left inguinal incarcerated hernia with extension into the left scrotal sac, causing partial obstruction of the small bowel. Morphologic changes within the obstructed loops which could be associated with ischemia or strangulation. - Lab Interpretations Lab Results: 05/05/18 20:34 05/05/18 20:34 Lab Results 05/05/18 22:24: Urine Color Yellow, Urine Appearance Clear, Urine pH 6.0, Ur Specific [place] 1.015, Urine Protein Negative, Urine Glucose (UA) Negative, Urine Ketones Negative, Urine Blood Negative, Urine Nitrate Negative, Urine Bilirubin Negative, Urine Urobilinogen 0.2, Ur Leukocyte Esterase Negative 05/05/18 20:34: Sodium 142, Potassium 3.9, Chloride 103, Carbon Dioxide 28, Anion Gap 15, BUN 16, Creatinine 1.0, Est GFR ( Amer) > 60, Est GFR (Non- Af Amer) > 60, Random Glucose 95, Calcium 8.7, Total Bilirubin 0.3, AST 31, ALT 36, Alkaline Phosphatase 67, Lactate Dehydrogenase 492, Total Creatine Kinase 148, Troponin I < 0.01 D, Total Protein 7.3, Albumin 4.4, Globulin 2.9, Albumin /Globulin Ratio 1.5, Amylase 87, Lipase 100 05/05/18 20:34: PT 11.5, INR 1.01, APTT 28.6 05/05/18 20:34: WBC 12.9 H D, RBC 4.87, Hgb 15.9, Hct 45.9, MCV 94.3, MCH 32.6, MCHC 34.6, RDW 13.0, Plt Count 314, MPV 10.4, Gran % 77.1 H, Lymph % (Auto) 14.5 L, [place] % (Auto) 5.4, Eos % (Auto) 2.8, Baso % (Auto) 0.2, Gran # 9.91 H, Lymph # (Auto) 1.9, [place] # (Auto) 0.7 H, Eos # (Auto) 0.4, Baso # (Auto) 0.03 I have reviewed the lab results: Yes - RAD Interpretation Radiology Orders: 05/05/18 19:59 ABD & PELVIS W/O PO OR IV CONT [CT] Stat Senior Marketing Coordinator: Radiologist - EKG Interpretation Interpreted by ED Physician: Yes Type: 12 lead EKG - Medication Orders Current Medication Orders: Acetaminophen (Tylenol 325mg Tab) 650 mg PO Q6H PRN PRN Reason: Pain, moderate (4-7) Arformoterol Tartrate (Brovana) 15 mcg IH [id number] [facility] Budesonide (Pulmicort Respules) 0.25 mg IH [id number] [facility] Sodium Chloride (Sodium Chloride 0.9%) 1,000 mls @ 80 mls/hr IV .[id number] [facility] Last Admin: 05/05/18 20:15 Dose: 80 mls/hr eMAR Start Stop Document 05/05/18 20:15 AD (Rec: 05/05/18 20:53 AD [id number]) Intravenous Solution Start Date 05/05/18 Start Time 20:15 Nicotine (Nicoderm Cq) 1 patch TD DAILY [facility] Last Admin: 05/06/18 09:16 Dose: 1 patch MAR Transdermal Patch Site Document 05/06/18 09:16 ANTOALL (Rec: 05/06/18 09:17 ANTOALL [id number] ) Transdermal Patch Site Transdermal Patch Site Right Shoulder Ondansetron HCl (Zofran Inj) 4 mg IVP Q4H PRN PRN Reason: Nausea/Vomiting Oxycodone/Acetaminophen (Percocet 5/325 Mg Tab) 1 tab PO Q4H PRN PRN Reason: Pain, severe (8-10) Stop: 05/09/18 01:46 Last Admin: 05/06/18 16:56 Dose: 1 tab MAR Pain Assessment Document 05/06/18 16:56 ANTOALL (Rec: 05/06/18 16:56 ANTOALL [id number] ) Pain Reassessment Is this a pain reassessment? No Sleep Is patient sleeping during reassessment? No Presence of Pain Presence of Pain Yes Pain Scale Used Pain Scale Used Numeric Location Pain Location Body Site Abdomen Description Description Intermittent Intensity of Pain at present 8 Pantoprazole Sodium (Protonix Inj) 40 mg IVP DAILY [facility] Last Admin: 05/06/18 09:17 Dose: 40 mg IVP Administration Document 05/06/18 09:17 ANTOALL (Rec: 05/06/18 09:17 ANTOALL [id number] ) Charges for Administration # of IVP Administrations 1 Prednisone (Prednisone Tab) 20 mg PO DAILY [facility] Discontinued Medications Albuterol/Ipratropium (Duoneb 3 Mg/0.5 Mg (3 Ml) Ud) 3 ml IH STAT STA Stop: 05/05/18 23:17 Last Admin: 05/05/18 23:16 Dose: 3 ml Albuterol/Ipratropium (Duoneb 3 Mg/0.5 Mg (3 Ml) Ud) 3 ml IH Q6 [facility] Stop: 05/06/18 18:01 Last Admin: 05/06/18 06:26 Dose: 3 ml Albuterol/Ipratropium (Duoneb 3 Mg/0.5 Mg (3 Ml) Ud) 3 ml IH STAT STA Stop: 05/06/18 11:33 Last Admin: 05/06/18 12:05 Dose: 3 ml Albuterol/Ipratropium (Duoneb 3 Mg/0.5 Mg (3 Ml) Ud) 3 ml IH Q4 [facility] Stop: 05/06/18 16:01 Last Admin: 05/06/18 15:12 Dose: 3 ml Hydromorphone HCl (Dilaudid) 2 mg IVP STAT STA Stop: 05/05/18 20:01 Last Admin: 05/05/18 20:15 Dose: 2 mg MAR Pain Assessment Document 05/05/18 20:15 AD (Rec: 05/05/18 20:53 AD [id number]) Pain Reassessment Is this a pain reassessment? No Presence of Pain Presence of Pain Yes Pain Scale Used Pain Scale Used Numeric Description Intensity of Pain at present 10 Pain Behavior Moaning Crying Facial Grimacing IVP Administration Document 05/05/18 20:15 AD (Rec: 05/05/18 20:53 AD [id number]) Charges for Administration # of IVP Administrations 1 Hydromorphone HCl (Dilaudid) 2 mg IVP STAT STA Stop: 05/05/18 20:38 Last Admin: 05/05/18 21:00 Dose: 2 mg MAR Pain Assessment Document 05/05/18 21:00 AD (Rec: 05/05/18 21:00 AD [id number]) Pain Reassessment Is this a pain reassessment? No Presence of Pain Presence of Pain Yes Pain Scale Used Pain Scale Used Numeric Description Description Constant Intensity of Pain at present 10 Pain Behavior Moaning Crying Facial Grimacing IVP Administration Document 05/05/18 21:00 AD (Rec: 05/05/18 21:00 AD [id number]) Charges for Administration # of IVP Administrations 1 Hydromorphone HCl (Dilaudid) 0.5 mg IVP Q15M PRN PRN Reason: Pain, moderate (4-7) Stop: 05/06/18 03:45 Last Admin: 05/06/18 02:25 Dose: 0.5 mg Lactated Ringer's 1,000 ml/ IV (SUPPLIES) 1,000 mls @ 9,797.64 mls/hr IV ONCE ONE PRN Reason: 120 ML/KG/HR Stop: 05/05/18 23:36 Lactated Ringer's (Lactated Ringer's) 1,000 mls @ 75 mls/hr IV .[id number] [facility] Stop: 05/06/18 03:46 Meperidine HCl (Demerol) 25 mg IVP Q10M STA Stop: 05/06/18 01:58 Ondansetron HCl (Zofran Inj) 4 mg IVP STAT STA Stop: 05/05/18 20:01 Last Admin: 05/05/18 20:15 Dose: 4 mg IVP Administration Document 05/05/18 20:15 AD (Rec: 05/05/18 20:53 AD [id number]) Charges for Administration # of IVP Administrations 1 - Scribe Statement The provider has reviewed the documentation as recorded by the Scribmarsha Lobo All medical record entries made by the Scribe were at my direction and personally dictated by me. I have reviewed the chart and agree that the record accurately reflects my personal performance of the history, physical exam, medical decision making, and the department course for this patient. I have also personally directed, reviewed, and agree with the discharge instructions and disposition. Disposition/Present on Arrival - Present on Arrival Any Indicators Present on Arrival: No History of DVT/PE: No History of Uncontrolled Diabetes: No Urinary Catheter: No History of Decub. Ulcer: No History Surgical Site Infection Following: None - Disposition Have Diagnosis and Disposition been Completed?: Yes Diagnosis: Incarcerated inguinal hernia Disposition: HOSPITALIZED Disposition Time: 23:50 Condition: GOOD
[2018-05-05 22:30] LABS: URINE BILIRUBIN NEGATIVE (NEGATIVE); URINE BLOOD NEGATIVE (NEGATIVE); URINE GLUCOSE (UA) NEGATIVE (NEGATIVE); URINE LEUKOCYTE ESTERASE NEGATIVE Leu/uL (NEGATIVE); URINE PROTEIN NEGATIVE mg/dL (<30 mg/dL); URINE UROBILINOGEN 0.2 E.U./dL (<1 E.U./dL)
[2018-05-05 22:31] LABS: URINE APPEARANCE CLEAR (CLEAR); URINE COLOR YELLOW (YELLOW)
[2018-05-05] MEDS ORDERED: Albuterol-Ipratrop 3 mg / 0.5 (3 ml) UD IH STA (23:16)
[2018-05-06] MEDS ORDERED: Propofol 10 mg/ml Inj (20 ML) ONE (00:01)
[2018-05-06] MEDS ORDERED: Lidocaine 1% Inj (20ml) ONE (00:02)
[2018-05-06] MEDS ORDERED: Succinylcholine 200 mg/10 ml Inj IV ONE (00:02)
[2018-05-06] MEDS ORDERED: Rocuronium 10 mg/ml (5 ml) ONE (00:02)
--- NOTE | 2018-05-06 00:02 | CP.PCM.HP ---
<Julio César Schuler - Last Filed: 05/06/18 05:20> History of Present Illness - History of Present Illness History of Present Illness: 47 year old male with a past medical history of left inguinal hernia ( approximately one year) and asthma who comes in with left inguinal pain since 2 pm this afternoon. The patient states he was walking in the house when the hernia popped out. He reports trying to self reduce however was unable to and subsequently began to have abdominal pain that radiated from the inguinal area. The patient states that in the past he was able to successfully put the hernia back in place but this time was unsuccessful. The patient denies any alleviating or modifying factors. The patient denies taking anything at home for the pain. Patient denies any chest pain, shortness of breath, fevers, chills, nausea, vomiting, headache, palpitations, dizziness, inguinal discharge or any other complaints. Past medical history: asthma, inginal hernia Past surgical history: Tonsillectomy Medications: Ventolin Allergies: Penicillin Social history: Admits tobacco use 1/2 pack q37wgmwk. Etoh use occasionally. Occasional MJ use PMD: Dr. Ferris. Present on Admission - Present on Admission Any Indicators Present on Admission: No Review of Systems - Constitutional Constitutional: absent: Daytime Sleepiness, Headache, Snoring, Weakness - EENT Eyes: absent: Blurred Vision, Discharge, Loss of Peripheral Vision, Sees Flashes , Loss of Vision Nose/Mouth/Throat: absent: Nasal Congestion, Nose Pain, Bleeding Gums, Dysphagia , Mouth Pain, Facial Pain - Cardiovascular Cardiovascular: absent: Chest Pain, Claudication, Irregular Heart Rhythm, Leg Edema, Orthopnea, Slow Heart Rate, Syncope - Respiratory Respiratory: Wheezing. absent: Cough, Dyspnea, Snoring, Pain on Inspiration, Excessive Mucous Production, Change in Mucous Color - Gastrointestinal Gastrointestinal: absent: Cramping, Diarrhea, Dyspepsia, Melena, Nausea, Temesmus - Reproductive: Male Reproductive:Male: Pelvic Pain Additional comments: Left inguinal pain worse on cough. Swelling of left inguinal region. - Musculoskeletal Musculoskeletal: absent: Abnormal Gait, Joint Swelling, Muscle Weakness, Stiffness - Integumentary Integumentary: absent: Bleeding Lesions, Lesions, New Lesions, Sores, Unusual Bruising - Neurological Neurological: absent: Lack of Coordination, Radicular Pain, Weakness - Endocrine Endocrine: absent: Polydipsia, Polyphagia, Polyuria - Hematologic/Lymphatic Hematologic: absent: As Per HPI, Easy Bleeding, Easy Bruising Past Patient History - Infectious Disease Hx of Infectious Diseases: None - Past Social History Smoking Status: Current Some Days Smoker - CARDIAC Hx Cardiac Disorders: No - PULMONARY Hx Respiratory Disorders: Yes Hx Asthma: Yes - NEUROLOGICAL Hx Neurological Disorder: No - HEENT Hx HEENT Problems: No - RENAL Hx Chronic Kidney Disease: No - ENDOCRINE/METABOLIC Hx Endocrine Disorders: No - HEMATOLOGICAL/ONCOLOGICAL Hx Blood Disorders: No - INTEGUMENTARY Hx Dermatological Problems: No - MUSCULOSKELETAL/RHEUMATOLOGICAL Hx Falls: No - GASTROINTESTINAL Hx Gastrointestinal Disorders: Yes Hx Gastroesophageal Reflux: Yes Other/Comment: pt states he has a hernia but never followed up - GENITOURINARY/GYNECOLOGICAL Hx Genitourinary Disorders: No Hx Prostate Problems: Yes (BPH) Hx Urinary Tract Infection: Yes - PSYCHIATRIC Hx Psychophysiologic Disorder: No Hx Substance Use: No - SURGICAL HISTORY Other/Comment: tonsillectomy - ANESTHESIA Hx Anesthesia: Yes Hx Anesthesia Reactions: No Hx Malignant Hyperthermia: No Meds Allergies/Adverse Reactions: Allergies Allergy/AdvReac Type Severity Reaction Status Date / Time Penicillins Allergy Severe SWELLING Verified 05/05/18 19:53 seafoods Allergy Mild ITCHING Uncoded 05/05/18 19:53 Physical Exam - Head Exam Head Exam: ATRAUMATIC, NORMAL INSPECTION, NORMOCEPHALIC - Eye Exam Eye Exam: EOMI, Normal appearance, PERRL Pupil Exam: NORMAL ACCOMODATION, PERRL - ENT Exam ENT Exam: Mucous Membranes Moist, Normal Exam - Respiratory Exam Respiratory Exam: Wheezes. absent: Respiratory Distress - Cardiovascular Exam Cardiovascular Exam: REGULAR RHYTHM, +S1, +S2 - GI/Abdominal Exam GI & Abdominal Exam: Normal Bowel Sounds, Soft - Exam Additional comments: Left unreducable inguinal hernia present. Localized tenderness noted upon palpation at the site. - Extremities Exam Extremities exam: Positive for: normal inspection. Negative for: calf tenderness, full ROM, pedal edema - Back Exam Back exam: NORMAL INSPECTION. absent: CVA tenderness (L), CVA tenderness (R), paraspinal tenderness - Neurological Exam Neurological exam: Alert, CN II-XII Intact, Oriented x3 - Psychiatric Exam Psychiatric exam: Normal Affect, Normal Mood - Skin Skin Exam: Dry, Intact, Normal Color Results - Vital Signs Recent Vital Signs: Last Vital Signs Temp 97.8 F 05/05/18 19:56 Pulse 68 05/05/18 23:32 Resp 18 05/05/18 23:32 BP 134/85 05/05/18 23:32 Pulse Ox 100 05/05/18 23:32 - Labs Result Diagrams: 05/05/18 20:34 05/05/18 20:34 Labs: Laboratory Results - last 24 hr 05/05/18 05/05/18 05/05/18 20:34 20:34 20:34 WBC 12.9 H D RBC 4.87 Hgb 15.9 Hct 45.9 MCV 94.3 MCH 32.6 MCHC 34.6 RDW 13.0 Plt Count 314 MPV 10.4 Gran % 77.1 H Lymph % (Auto) 14.5 L [place] % (Auto) 5.4 Eos % (Auto) 2.8 Baso % (Auto) 0.2 Gran # 9.91 H Lymph # (Auto) 1.9 [place] # (Auto) 0.7 H Eos # (Auto) 0.4 Baso # (Auto) 0.03 PT 11.5 INR 1.01 APTT 28.6 Sodium 142 Potassium 3.9 Chloride 103 Carbon Dioxide 28 Anion Gap 15 BUN 16 Creatinine 1.0 Est GFR ( Amer) > 60 Est GFR (Non-Af Amer) > 60 Random Glucose 95 Calcium 8.7 Total Bilirubin 0.3 AST 31 ALT 36 Alkaline Phosphatase 67 Lactate Dehydrogenase 492 Total Creatine Kinase 148 Troponin I < 0.01 D Total Protein 7.3 Albumin 4.4 Globulin 2.9 Albumin/Globulin Ratio 1.5 Amylase 87 Lipase 100 Urine Color Urine Appearance Urine pH Ur Specific [place] Urine Protein Urine Glucose (UA) Urine Ketones Urine Blood Urine Nitrate Urine Bilirubin Urine Urobilinogen Ur Leukocyte Esterase 05/05/18 22:24 WBC RBC Hgb Hct MCV MCH MCHC RDW Plt Count MPV Gran % Lymph % (Auto) [place] % (Auto) Eos % (Auto) Baso % (Auto) Gran # Lymph # (Auto) [place] # (Auto) Eos # (Auto) Baso # (Auto) PT INR APTT Sodium Potassium Chloride Carbon Dioxide Anion Gap BUN Creatinine Est GFR ( Amer) Est GFR (Non-Af Amer) Random Glucose Calcium Total Bilirubin AST ALT Alkaline Phosphatase Lactate Dehydrogenase Total Creatine Kinase Troponin I Total Protein Albumin Globulin Albumin/Globulin Ratio Amylase Lipase Urine Color Yellow Urine Appearance Clear Urine pH 6.0 Ur Specific [place] 1.015 Urine Protein Negative Urine Glucose (UA) Negative Urine Ketones Negative Urine Blood Negative Urine Nitrate Negative Urine Bilirubin Negative Urine Urobilinogen 0.2 Ur Leukocyte Esterase Negative Assessment & Plan - Assessment and Plan (Free Text) Assessment: 47 year old male with a medical history of asthma and inguinal hernia being admitted for incarcerated left inguinal hernia. Plan: 1.Incarcerated inguinal hernia -Surgery consulted. Help appreciated. -Patient to go to [facility]. -Pain management per Surgery team -IV fluids:Lactated Ringers @75mls/hr 2. Asthma -Duonebs Q6 MARV -Duonebs Q2 PRN -Will monitor PPX -SCD's -Protonix <Dorene Martinez - Last Filed: 05/06/18 05:29> Results - Vital Signs Recent Vital Signs: Last Vital Signs Temp 97.9 F 05/06/18 03:23 Pulse 66 05/06/18 03:23 Resp 18 05/06/18 03:23 BP 149/84 05/06/18 03:23 Pulse Ox 99 05/06/18 02:26 - Labs Result Diagrams: 05/05/18 20:34 05/05/18 20:34 Labs: Laboratory Results - last 24 hr 05/05/18 23:05 Blood Type O POSITIVE Antibody Screen Negative BBK History Checked No verified bt Attending/Attestation - Attestation I have personally seen and examined this patient.: Yes I have fully participated in the care of the patient.: Yes I have reviewed all pertinent clinical information: Yes Notes (Text): 05/06/18 05:28 Agree with documentation and orders placed.
[2018-05-06] MEDS ORDERED: Vancomycin 1 g Inj ONE (00:03)
[2018-05-06] MEDS ORDERED: Bupivacaine 0.5% Inj(30mL) ONE (00:03)
--- NOTE | 2018-05-06 01:44 | PCM.SURG1 ---
Surgeon's Initial Post Op Note - Surgeon's Notes Surgeon: Dr. Dallas Bookkeepers Supervisor: Meka Simon, PGY-1 Type of Anesthesia: General Endo Anesthesia Administered By: Dr. Vasquez Pre-Operative Diagnosis: Incarcerated left inguinal hernia Operative Findings: see op report Post-Operative Diagnosis: Incarcerated left inguinal hernia Operation Performed: Left inguinal hernia repair with mesh plug Specimen/Specimens Removed: hernia sac, nodule Estimated Blood Loss: EBL {In ML}: 10 Blood Products Given: N/A Drains Used: No Drains Post-Op Condition: Good Date of Surgery/Procedure: 05/06/18 Time of Surgery/Procedure: 01:44
[2018-05-06] MEDS ORDERED: Lactated Ringer's 1,000 ML IV SCH (01:45)
[2018-05-06] MEDS: HYDROmorphone 0.5 mg/0.5 ml ISec IVP PRN ×3 (01:55→02:25)
[2018-05-06] MEDS ORDERED: HYDROmorphone 0.5 mg/0.5 ml ISec ONE ×3 (01:59→02:28)
[2018-05-06] MEDS: Oxycodone/Acetaminophen 5/325 mg Tab PO PRN ×4 (03:04→16:56)
[2018-05-06] MEDS ORDERED: Albuterol-Ipratrop 3 mg / 0.5 (3 ml) UD IH SCH (06:00)
[2018-05-06 08:49] VITALS: RESP 20
--- NOTE | 2018-05-06 09:37 | CARD ---
APPROVED REPORT EKG Measurement Heart [id number] <Conclusion> Normal sinus rhythm Possible Anterior infarct, age undetermined Abnormal ECG
--- NOTE | 2018-05-06 09:41 | CP.PCM.PN ---
Subjective - Date & Time of Evaluation Date of Evaluation: 05/06/18 Time of Evaluation: 09:41 - Subjective Subjective: Medicine progress note Objective - Vital Signs/Intake and Output Vital Signs (last 24 hours): Temp Pulse Resp BP Pulse Ox 98.5 F 72 20 136/82 97 05/06/18 06:00 05/06/18 06:00 05/06/18 06:00 05/06/18 06:00 05/06/18 06:00 Intake and Output: 05/06/18 05/06/18 06:59 18:59 Intake Total 0 Balance 0 - Medications Medications: Current Medications Acetaminophen (Tylenol 325mg Tab) 650 mg PO Q6H PRN PRN Reason: Pain, moderate (4-7) Albuterol/Ipratropium (Duoneb 3 Mg/0.5 Mg (3 Ml) Ud) 3 ml IH Q6 [facility] Stop: 05/06/18 18:01 Last Admin: 05/06/18 06:26 Dose: 3 ml Sodium Chloride (Sodium Chloride 0.9%) 1,000 mls @ 80 mls/hr IV .[id number] [facility] Last Admin: 05/05/18 20:15 Dose: 80 mls/hr Nicotine (Nicoderm Cq) 1 patch TD DAILY [facility] Last Admin: 05/06/18 09:16 Dose: 1 patch Ondansetron HCl (Zofran Inj) 4 mg IVP Q4H PRN PRN Reason: Nausea/Vomiting Oxycodone/Acetaminophen (Percocet 5/325 Mg Tab) 1 tab PO Q4H PRN PRN Reason: Pain, severe (8-10) Stop: 05/09/18 01:46 Last Admin: 05/06/18 07:21 Dose: 1 tab Pantoprazole Sodium (Protonix Inj) 40 mg IVP DAILY [facility] Last Admin: 05/06/18 09:17 Dose: 40 mg - Labs Labs: PT 11.5 SECONDS (9.4-12.5) 05/05/18 20:34 INR 1.01 (0.93-1.08) 05/05/18 20:34 APTT 28.6 Seconds (25.1-36.5) 05/05/18 20:34
[2018-05-06 09:57] LABS: BASO # 0.02 K/mm3 (0.0-2.0); BASO % 0.2 % (0.0-3.0); EOS # 0.4 (0.0-0.7); GRAN # 8.31 (1.4-6.5); GRAN % 67.4 % (50.0-68.0); HEMOGLOBIN 14.5 g/dL (14.0-18.0); LYMPH # 2.6 (1.2-3.4); LYMPH % 20.8 % (22.0-35.0); MEAN CELL VOLUME 94.5 fl (80.0-105.0); MEAN CORPUSCULAR HEMOGLOBIN 31.9 pg (25.0-35.0); MEAN CORPUSCULAR HGB CONC 33.8 g/dl (31.0-37.0); MEAN PLATELET VOLUME 10.9 fl (7.0-11.0); MONO # 1.1 (0.1-0.6); MONO % 8.6 % (1.0-6.0); RBC 4.54 10^6/uL (3.5-6.1); RED CELL DISTRIBUTION WIDTH 13.1 % (11.5-14.5); WHITE BLOOD COUNT 12.3 10^3/ul (4.5-11.0)
[2018-05-06 10:09] LABS: BLOOD UREA NITROGEN 11 mg/dL (7-21); CALCIUM 8.3 mg/dL (8.4-10.5); GFR AFRICAN-AMERICAN > 60; GFR NON-AFRICAN AMERICAN > 60
--- NOTE | 2018-05-06 10:30 | CT ---
PROCEDURE: CT Abdomen and Pelvis without intravenous contrast HISTORY: incarcerated hernia COMPARISON: None. TECHNIQUE: Technique. Contrast dose: Radiation dose: Total exam DLP = mGy-cm. This CT exam was performed using one or more of the following dose reduction techniques: Automated exposure control, adjustment of the mA and/or kV according to patient size, and/or use of iterative reconstruction technique. FINDINGS: LOWER THORAX: Unremarkable. LIVER: Unremarkable. No gross lesion or ductal dilatation. GALLBLADDER AND BILE DUCTS: Unremarkable. PANCREAS: Unremarkable. No gross lesion or ductal dilatation. SPLEEN: Unremarkable. ADRENALS: Unremarkable. No mass. KIDNEYS AND URETERS: Unremarkable. No hydronephrosis. No solid mass. VASCULATURE: Unremarkable. No aortic aneurysm. BOWEL: PROMINENT LEFT INGUINAL HERNIA WHICH APPEARS INCARCERATED WITH EXTENSION INTO THE LEFT SCROTAL SAC CAUSING PARTIAL OBSTRUCTION OF THE SMALL BOWEL. MORPHOLOGICAL CHANGES WITHIN THE OBSTRUCTED LOOPS COULD BE ASSOCIATED WITH ISCHEMIA OR STRANGULATION. APPENDIX: Unremarkable. Normal appendix. PERITONEUM: Unremarkable. No free fluid. No free air. LYMPH NODES: Unremarkable. No enlarged lymph nodes. BLADDER: Unremarkable. REPRODUCTIVE: Unremarkable. BONES: No acute fracture. OTHER FINDINGS: None. IMPRESSION: PROMINENT LEFT INGUINAL HERNIA WHICH APPEARS INCARCERATED WITH EXTENSION INTO THE LEFT SCROTAL SAC CAUSING PARTIAL OBSTRUCTION OF THE SMALL BOWEL. MORPHOLOGICAL CHANGES WITHIN THE OBSTRUCTED LOOPS COULD BE ASSOCIATED WITH ISCHEMIA OR STRANGULATION.
--- NOTE | 2018-05-06 10:41 | CP.PCM.PN ---
Subjective - Date & Time of Evaluation Date of Evaluation: 05/06/18 Time of Evaluation: 09:37 - Subjective Subjective: Kong Pcikard PGY1 Surgery Progress Note for Dr. Dallas Patient was seen and examined at bedside. His pain is improved from pre-op, and he has tolerated his diet well. Patient denies nausea/vomiting, fevers/chills, and is passing gas. Encouraged incentive spirometer use and ambulation as tolerated. Objective - Vital Signs/Intake and Output Vital Signs (last 24 hours): Temp Pulse Resp BP Pulse Ox 98.5 F 72 20 136/82 97 05/06/18 06:00 05/06/18 06:00 05/06/18 06:00 05/06/18 06:00 05/06/18 06:00 Intake and Output: 05/06/18 05/06/18 06:59 18:59 Intake Total 0 Balance 0 - Medications Medications: Current Medications Acetaminophen (Tylenol 325mg Tab) 650 mg PO Q6H PRN PRN Reason: Pain, moderate (4-7) Albuterol/Ipratropium (Duoneb 3 Mg/0.5 Mg (3 Ml) Ud) 3 ml IH Q6 [facility] Stop: 05/06/18 18:01 Last Admin: 05/06/18 06:26 Dose: 3 ml Sodium Chloride (Sodium Chloride 0.9%) 1,000 mls @ 80 mls/hr IV [id number] Last Admin: 05/05/18 20:15 Dose: 80 mls/hr Nicotine (Nicoderm Cq) 1 patch TD DAILY [facility] Last Admin: 05/06/18 09:16 Dose: 1 patch Ondansetron HCl (Zofran Inj) 4 mg IVP Q4H PRN PRN Reason: Nausea/Vomiting Oxycodone/Acetaminophen (Percocet 5/325 Mg Tab) 1 tab PO Q4H PRN PRN Reason: Pain, severe (8-10) Stop: 05/09/18 01:46 Last Admin: 05/06/18 07:21 Dose: 1 tab Pantoprazole Sodium (Protonix Inj) 40 mg IVP DAILY [facility] Last Admin: 05/06/18 09:17 Dose: 40 mg - Labs Labs: 05/06/18 09:54 05/06/18 09:54 PT 11.5 SECONDS (9.4-12.5) 05/05/18 20:34 INR 1.01 (0.93-1.08) 05/05/18 20:34 APTT 28.6 Seconds (25.1-36.5) 05/05/18 20:34 - Constitutional Appears: Well, Non-toxic, No Acute Distress - Head Exam Head Exam: NORMAL INSPECTION - Eye Exam Eye Exam: Normal appearance Pupil Exam: NORMAL ACCOMODATION - ENT Exam ENT Exam: Normal Exam - Neck Exam Neck Exam: Normal Inspection - Respiratory Exam Respiratory Exam: NORMAL BREATHING PATTERN. absent: Rales, Wheezes - Cardiovascular Exam Cardiovascular Exam: RRR - GI/Abdominal Exam GI & Abdominal Exam: Soft, Normal Bowel Sounds. absent: Distended, Tenderness Additional comments: dressing c/d/i - Extremities Exam Extremities Exam: Full ROM - Back Exam Back Exam: NORMAL INSPECTION - Neurological Exam Neurological Exam: Alert, Awake - Psychiatric Exam Psychiatric exam: Normal Mood - Skin Skin Exam: Warm Assessment and Plan - Assessment and Plan (Free Text) Assessment: 47yo M POD 0 for Left inguinal hernia repair with mesh plug, patient is doing well post-op; will advance diet and plan for d/c today if he tolerates regular diet Plan: Advance diet from CLD to regular heart healthy pain controlled continue incentive spirometery encourage ambulation as tolerated plan for d/c today if patient continues to improve Case was discussed and reviewed with Dr. Dallas
[2018-05-06] MEDS ORDERED: Albuterol-Ipratrop 3 mg / 0.5 (3 ml) UD IH STA (11:32)
[2018-05-06] MEDS: Albuterol-Ipratrop 3 mg / 0.5 (3 ml) UD IH SCH ×2 (12:06→15:12)
--- NOTE | 2018-05-06 13:52 | CP.PCM.DIS ---
<VelbrianRamu - Last Filed: 05/06/18 14:04> Provider - Provider Date of Admission: 05/05/18 23:03 Attending physician: Patric Coleman MD Primary care physician: NO FAMILY PROVIDER Time Spent in preparation of Discharge (in minutes): 45 Hospital Course - Lab Results Lab Results: Most Recent Lab Values WBC 12.3 10^3/ul (4.5-11.0) H 05/06/18 09:54 RBC 4.54 10^6/uL (3.5-6.1) 05/06/18 09:54 Hgb 14.5 g/dL (14.0-18.0) 05/06/18 09:54 Hct 42.9 % (42.0-52.0) 05/06/18 09:54 MCV 94.5 fl (80.0-105.0) 05/06/18 09:54 MCH 31.9 pg (25.0-35.0) 05/06/18 09:54 MCHC 33.8 g/dl (31.0-37.0) 05/06/18 09:54 RDW 13.1 % (11.5-14.5) 05/06/18 09:54 Plt Count 279 10^3/uL (120.0-450.0) 05/06/18 09:54 MPV 10.9 fl (7.0-11.0) 05/06/18 09:54 Gran % 67.4 % (50.0-68.0) 05/06/18 09:54 Lymph % (Auto) 20.8 % (22.0-35.0) L 05/06/18 09:54 [place] % (Auto) 8.6 % (1.0-6.0) H 05/06/18 09:54 Eos % (Auto) 3.0 % (1.5-5.0) 05/06/18 09:54 Baso % (Auto) 0.2 % (0.0-3.0) 05/06/18 09:54 Gran # 8.31 (1.4-6.5) H 05/06/18 09:54 Lymph # (Auto) 2.6 (1.2-3.4) 05/06/18 09:54 [place] # (Auto) 1.1 (0.1-0.6) H 05/06/18 09:54 Eos # (Auto) 0.4 (0.0-0.7) 05/06/18 09:54 Baso # (Auto) 0.02 K/mm3 (0.0-2.0) 05/06/18 09:54 PT 11.5 SECONDS (9.4-12.5) 05/05/18 20:34 INR 1.01 (0.93-1.08) 05/05/18 20:34 APTT 28.6 Seconds (25.1-36.5) 05/05/18 20:34 Sodium 142 mmol/L (132-148) 05/06/18 09:54 Potassium 3.8 mmol/L (3.6-5.0) 05/06/18 09:54 Chloride 106 mmol/L (98-107) 05/06/18 09:54 Carbon Dioxide 26 mmol/L (21-33) 05/06/18 09:54 Anion Gap 14 (10-20) 05/06/18 09:54 BUN 11 mg/dL (7-21) 05/06/18 09:54 Creatinine 0.9 mg/dl (0.8-1.5) 05/06/18 09:54 Est GFR ( Amer) > 60 05/06/18 09:54 Est GFR (Non-Af Amer) > 60 05/06/18 09:54 Random Glucose 76 mg/dL (70-110) 05/06/18 09:54 Calcium 8.3 mg/dL (8.4-10.5) L 05/06/18 09:54 Total Bilirubin 0.3 mg/dL (0.2-1.3) 05/05/18 20:34 AST 31 U/L (17-59) 05/05/18 20:34 ALT 36 U/L (7-56) 05/05/18 20:34 Alkaline Phosphatase 67 U/L (38-126) 05/05/18 20:34 Lactate Dehydrogenase 492 U/L (333-699) 05/05/18 20:34 Total Creatine Kinase 148 U/L (35-230) 05/05/18 20:34 Troponin I < 0.01 ng/mL D 05/05/18 20:34 Total Protein 7.3 g/dL (5.8-8.3) 05/05/18 20:34 Albumin 4.4 g/dL (3.0-4.8) 05/05/18 20:34 Globulin 2.9 gm/dL 05/05/18 20:34 Albumin/Globulin Ratio 1.5 (1.1-1.8) 05/05/18 20:34 Amylase 87 U/L (35-125) 05/05/18 20:34 Lipase 100 U/L (23-300) 05/05/18 20:34 Urine Color Yellow (YELLOW) 05/05/18 22:24 Urine Appearance Clear (CLEAR) 05/05/18 22:24 Urine pH 6.0 (4.7-8.0) 05/05/18 22:24 Ur Specific [place] 1.015 (1.005-1.035) 05/05/18 22:24 Urine Protein Negative mg/dL (<30 mg/dL) 05/05/18 22:24 Urine Glucose (UA) Negative mg/dL (NEGATIVE) 05/05/18 22:24 Urine Ketones Negative mg/dL (NEGATIVE) 05/05/18 22:24 Urine Blood Negative (NEGATIVE) 05/05/18 22:24 Urine Nitrate Negative (NEGATIVE) 05/05/18 22:24 Urine Bilirubin Negative (NEGATIVE) 05/05/18 22:24 Urine Urobilinogen 0.2 E.U./dL (<1 E.U./dL) 05/05/18 22:24 Ur Leukocyte Esterase Negative Jonah/uL (NEGATIVE) 05/05/18 22:24 Blood Type O POSITIVE 05/05/18 23:05 Blood Type Confirm O POSITIVE 05/06/18 07:00 Antibody Screen Negative 05/05/18 23:05 BBK History Checked No verified bt 05/05/18 23:05 - Hospital Course Hospital Course: 47M w/ pmhx of Asthma, and inguinal hernia presented to [facility] [place] [facility] with incarcerated inguinal hernia which he was experiencing severe pain after walking out of his house. He reports trying to self reduce however was unable to and subsequently began to have abdominal pain that radiated from the inguinal area. The patient states that in the past he was able to successfully put the hernia back in place but this time was unsuccessful. The patient denies any alleviating or modifying factors. The patient denies taking anything at home for the pain. Patient denies any chest pain, shortness of breath, fevers, chills, nausea, vomiting, headache, palpitations, dizziness, inguinal discharge or any other complaints. During hospital course patient was taken to the operating room for an open inguinal hernia repair with mesh. Patient tolerated the procedure well with no immediate complications. Post operatively patient was treated with duo-nebs and steroids for diffuse wheezing. Patient feels better and saturdating >96% on RA. Patient is cleared for discharge home on Asthma JACKI and Corticosteroid. Follow up in office in 1-2 weeks. Discharge Exam - Head Exam Head Exam: NORMAL INSPECTION - Eye Exam Eye Exam: EOMI. absent: Scleral icterus - ENT Exam ENT Exam: Mucous Membranes Moist - Respiratory Exam Respiratory Exam: Wheezes, NORMAL BREATHING PATTERN. absent: Accessory Muscle Use, Respiratory Distress - Cardiovascular Exam Cardiovascular Exam: +S1, +S2. absent: Bradycardia, Tachycardia - GI/Abdominal Exam GI & Abdominal Exam: Soft. absent: Guarding, Hernia, Rebound, Rigid, Tenderness Additional comments: Incision dressing C/D/i no strikethrough - Neurological Exam Neurological exam: Alert, Oriented x3 - Psychiatric Exam Psychiatric exam: Normal Affect - Skin Skin Exam: Intact, Warm Discharge Plan - Discharge Medications Prescriptions: Albuterol HFA [Ventolin HFA 90 mcg/actuation (8 g)] 1 puff IH Q6 #1 inhaler Arformoterol [Brovana] 15 mcg IH [id number] 30 Days neb oxyCODONE/Acetaminophen [Percocet 5/325 mg Tab] 1 ea PO Q6H PRN #20 tab PRN Reason: Pain, Severe (8-10) predniSONE [predniSONE Tab] See Taper PO DAILY #14 tab - Follow Up Plan Condition: GOOD Disposition: HOME/ ROUTINE Instructions: Soft Diet, Asthma, Adult (DC), Hernia Repair (DC) Additional Instructions: No heavy lifting greater than 15-20lbs for the next 4 to 6 weeks. Can shower tomorrow. Take over the counter Tylenol if fever greater than 100.4 if fever persists go to the ER Follow up in Dr. Dallas's clinic in 1-2 weeks Referrals: FAMILY PROVIDER,NO [Primary Care Provider] - Marlo Dallas MD [Staff Provider] - <Jose A López - Last Filed: 05/12/18 08:56> Provider - Provider Date of Admission: 05/05/18 23:03 Attending physician: Patric Coleman MD Primary care physician: NO FAMILY PROVIDER Hospital Course - Lab Results Lab Results: Most Recent Lab Values WBC 12.3 10^3/ul (4.5-11.0) H 05/06/18 09:54 RBC 4.54 10^6/uL (3.5-6.1) 05/06/18 09:54 Hgb 14.5 g/dL (14.0-18.0) 05/06/18 09:54 Hct 42.9 % (42.0-52.0) 05/06/18 09:54 MCV 94.5 fl (80.0-105.0) 05/06/18 09:54 MCH 31.9 pg (25.0-35.0) 05/06/18 09:54 MCHC 33.8 g/dl (31.0-37.0) 05/06/18 09:54 RDW 13.1 % (11.5-14.5) 05/06/18 09:54 Plt Count 279 10^3/uL (120.0-450.0) 05/06/18 09:54 MPV 10.9 fl (7.0-11.0) 05/06/18 09:54 Gran % 67.4 % (50.0-68.0) 05/06/18 09:54 Lymph % (Auto) 20.8 % (22.0-35.0) L 05/06/18 09:54 [place] % (Auto) 8.6 % (1.0-6.0) H 05/06/18 09:54 Eos % (Auto) 3.0 % (1.5-5.0) 05/06/18 09:54 Baso % (Auto) 0.2 % (0.0-3.0) 05/06/18 09:54 Gran # 8.31 (1.4-6.5) H 05/06/18 09:54 Lymph # (Auto) 2.6 (1.2-3.4) 05/06/18 09:54 [place] # (Auto) 1.1 (0.1-0.6) H 05/06/18 09:54 Eos # (Auto) 0.4 (0.0-0.7) 05/06/18 09:54 Baso # (Auto) 0.02 K/mm3 (0.0-2.0) 05/06/18 09:54 PT 11.5 SECONDS (9.4-12.5) 05/05/18 20:34 INR 1.01 (0.93-1.08) 05/05/18 20:34 APTT 28.6 Seconds (25.1-36.5) 05/05/18 20:34 Sodium 142 mmol/L (132-148) 05/06/18 09:54 Potassium 3.8 mmol/L (3.6-5.0) 05/06/18 09:54 Chloride 106 mmol/L (98-107) 05/06/18 09:54 Carbon Dioxide 26 mmol/L (21-33) 05/06/18 09:54 Anion Gap 14 (10-20) 05/06/18 09:54 BUN 11 mg/dL (7-21) 05/06/18 09:54 Creatinine 0.9 mg/dl (0.8-1.5) 05/06/18 09:54 Est GFR ( Amer) > 60 05/06/18 09:54 Est GFR (Non-Af Amer) > 60 05/06/18 09:54 Random Glucose 76 mg/dL (70-110) 05/06/18 09:54 Calcium 8.3 mg/dL (8.4-10.5) L 05/06/18 09:54 Total Bilirubin 0.3 mg/dL (0.2-1.3) 05/05/18 20:34 AST 31 U/L (17-59) 05/05/18 20:34 ALT 36 U/L (7-56) 05/05/18 20:34 Alkaline Phosphatase 67 U/L (38-126) 05/05/18 20:34 Lactate Dehydrogenase 492 U/L (333-699) 05/05/18 20:34 Total Creatine Kinase 148 U/L (35-230) 05/05/18 20:34 Troponin I < 0.01 ng/mL D 05/05/18 20:34 Total Protein 7.3 g/dL (5.8-8.3) 05/05/18 20:34 Albumin 4.4 g/dL (3.0-4.8) 05/05/18 20:34 Globulin 2.9 gm/dL 05/05/18 20:34 Albumin/Globulin Ratio 1.5 (1.1-1.8) 05/05/18 20:34 Amylase 87 U/L (35-125) 05/05/18 20:34 Lipase 100 U/L (23-300) 05/05/18 20:34 Urine Color Yellow (YELLOW) 05/05/18 22:24 Urine Appearance Clear (CLEAR) 05/05/18 22:24 Urine pH 6.0 (4.7-8.0) 05/05/18 22:24 Ur Specific [place] 1.015 (1.005-1.035) 05/05/18 22:24 Urine Protein Negative mg/dL (<30 mg/dL) 05/05/18 22:24 Urine Glucose (UA) Negative mg/dL (NEGATIVE) 05/05/18 22:24 Urine Ketones Negative mg/dL (NEGATIVE) 05/05/18 22:24 Urine Blood Negative (NEGATIVE) 05/05/18 22:24 Urine Nitrate Negative (NEGATIVE) 05/05/18 22:24 Urine Bilirubin Negative (NEGATIVE) 05/05/18 22:24 Urine Urobilinogen 0.2 E.U./dL (<1 E.U./dL) 05/05/18 22:24 Ur Leukocyte Esterase Negative Jonah/uL (NEGATIVE) 05/05/18 22:24 Blood Type O POSITIVE 05/05/18 23:05 Blood Type Confirm O POSITIVE 05/06/18 07:00 Antibody Screen Negative 05/05/18 23:05 BBK History Checked No verified bt 05/05/18 23:05 Attending/Attestation - Attestation I have personally seen and examined this patient.: Yes I have fully participated in the care of the patient.: Yes I have reviewed all pertinent clinical information, including history, physical exam and plan: Yes Notes (Text): 05/12/18 08:56 Medical record note made by the resident after discussion with my direction and input after the patient was personally seen and examined by me. I have reviewed the chart and agree that the record accurately reflects by personal performance of the history, physical exam, data review, and medical decision-making, in the course for the patient. I have also personally directed the plan of care.
[2018-05-06 15:07] VITALS: BP 141/88; PULSE 64; TEMP 98.8; O2SAT 96
[2018-05-06] MEDS ORDERED: Arformoterol 15 mcg/2 ml Inh Sol IH SCH (20:00)
[2018-05-06] MEDS ORDERED: Budesonide 0.25 mg/2 ml Inhal Susp UD IH SCH (20:00)
--- NOTE | 2018-05-11 23:11 | OP ---
PROCEDURE DATE: 05/05/2018 PREOPERATIVE DIAGNOSIS: Incarcerated left inguinal hernia. POSTOPERATIVE DIAGNOSIS: Incarcerated left inguinal hernia. OPERATION PERFORMED: Left inguinal hernia repair with plug and patch. DESCRIPTION OF PROCEDURE: In the operating room, the patient was identified by name, name of procedure, laterality, my eva, and the consent. The area was prepped with chlorhexidine, followed by waiting 3 minutes. The time-out was given by Dr. Vasquez. It was successfully identified by name, number, procedure, laterality, my consent, and my eva. Left inguinal incision was made in the skin and subcutaneous tissues exposing external oblique that was opened in the direction of its fibers. The undersurface was cleaned. With some difficulty the pubic tubercle, the cord was circumscribed, so doing it was noted that the hernia easily reduced. The hernia was then circumscribed with a [place] drain and clearly identifying the vas and several portions during its course. The hernia sac was then opened, a fair amount of mucousy material was seen, it was resected, and the hernia sac taken out of the scrotum and removed. A small opening was made close to the abdominal wall, this was sutured close. The hernia sac was opened. The bowel was unremarkable. There was a little bit of fluid and a little bit of pain, but nothing remarkable. The hernia sac was cleaned for high dissection, it was closed. The hernia sac was then run back in and a large plug was placed. It was sutured with Vicryl. The mesh was then placed through this keyhole around the cord, into neutral position. Hemostasis was excellent. The cord was closed in this layer by closing the external oblique with Vicryl. Wounds were injected with Marcaine 30 mL 0.5%. Chaz was closed, followed by subcutaneous tissue, followed by a running PDS and Dermabond. Testicle pulled down. Patient was taken to the recovery room in good condition after sponge and needle count was declared correct. Marlo Dallas MD
== END 2018-05-06 19:13 | disposition home or self-care (01) | DRG 162 ==
LOC: ED 19:31 → ERH 23:03 → 5RSO 05-06 02:56
PROVIDERS: ADMIT Internal Medicine; ATTEND Internal Medicine
PROC: 0YU60JZ Supplement Left Inguinal Region with Synthetic Substitute, Open Approach (ICD-10-PCS; principal; 2018-05-05 23:39)
PROC: 3E0F7GC Introduction of Other Therapeutic Substance into Respiratory Tract, Via Natural or Artificial Opening (ICD-10-PCS; 2018-05-06)
DX: K40.30 Unilateral inguinal hernia, with obstruction, without gangrene, not specified as recurrent (principal); J45.909 Unspecified asthma, uncomplicated; K21.9 Gastro-esophageal reflux disease without esophagitis; N40.0 Benign prostatic hyperplasia without lower urinary tract symptoms; F12.90 Cannabis use, unspecified, uncomplicated; Z72.0 Tobacco use

== ENCOUNTER 2018-07-10 20:16 | Inpatient (IN) | payer MEDICAID ==
[2018-07-10 20:20] VITALS: BMI 24.2
[2018-07-10] MEDS: Albuterol-Ipratrop 3 mg / 0.5 (3 ml) UD IH SCH ×3 (20:35→21:10)
--- NOTE | 2018-07-10 20:35 | ED PDOC ---
Arrival/HPI - General Historian: Patient - History of Present Illness Time/Duration: 4-6 hours Symptom Onset: Gradual Symptom Course: Unchanged Activities at Onset: Rest Context: Exertion - General Chief Complaint: Shortness Of Breath Time Seen by Provider: 07/10/18 20:21 - History of Present Illness Narrative History of Present Illness (Text): 07/10/18 20:32 Patient is a 47 year old male with PMH of asthma and incarcerated inguinal hernia (s/p repair) presents to ED with SOB worsening over the past 24 hours. Patient admits that he has also had a productive cough that has worsened over the past week. He states that this SOB is similar to his prior asthma exacerbations. He cannot think of any inciting factors. He states that the SOB is worse with exertion and lying flat. He has been waking up about 3 times per week at night with SOB. He has been using his rescue inhaler at least twice per day. He denies fever, chills, CP, nausea/vomiting. (Jacoby Paris) Past Medical History - Provider Review Nursing Documentation Reviewed: Yes - Travel History Have you recently traveled outside [place] w/in the past 3 mons?: No - Infectious Disease Hx of Infectious Diseases: None - Cardiac Hx Cardiac Disorders: No - Pulmonary Hx Respiratory Disorders: Yes Hx Asthma: Yes - Neurological Hx Neurological Disorder: No - HEENT Hx HEENT Disorder: No - Renal Hx Renal Disorder: No - Endocrine/Metabolic Hx Endocrine Disorders: No - Hematological/Oncological Hx Blood Disorders: No - Integumentary Hx Dermatological Disorder: No - Musculoskeletal/Rheumatological Hx Falls: No - Gastrointestinal Hx Gastrointestinal Disorders: Yes Hx Gastroesophageal Reflux: Yes Other/Comment: pt states he has a hernia but never followed up - Genitourinary/Gynecological Hx Genitourinary Disorders: No Hx Prostate Problems: Yes (BPH) Hx Urinary Tract Infection: Yes - Psychiatric Hx Psychophysiologic Disorder: No Hx Substance Use: No - Surgical History Other/Comment: tonsillectomy - Anesthesia Hx Anesthesia: Yes Hx Anesthesia Reactions: No Hx Malignant Hyperthermia: No Family/Social History - Physician Review Nursing Documentation Reviewed: Yes Family/Social History: No Known Family HX Smoking Status: Current Some Days Smoker Hx Alcohol Use: Yes (social) Hx Substance Use: No Allergies/Home Meds Allergies/Adverse Reactions: Allergies Penicillins Allergy (Severe, Verified 07/10/18 20:20) SWELLING seafoods Allergy (Mild, Uncoded 07/10/18 20:20) ITCHING Review of Systems - Physician Review All systems were reviewed & negative as marked: Yes - Review of Systems Constitutional: absent: Fatigue, Fevers Eyes: absent: Vision Changes ENT: Sinus Congestion. absent: Sore Throat, Rhinorrhea Respiratory: SOB, Cough, Sputum, Wheezing Cardiovascular: ANDRADE. absent: Chest Pain, Calf Pain Gastrointestinal: absent: Abdominal Pain, Nausea, Vomiting Genitourinary Male: absent: Dysuria Musculoskeletal: absent: Arthralgias Skin: absent: Rash, Pruritis Neurological: absent: Headache, Dizziness Psychiatric: absent: Anxiety, Depression Physical Exam Vital Signs Reviewed: Yes Temperature: Afebrile Blood Pressure: Normal Pulse: Regular Respiratory Rate: Normal Appearance: Positive for: Non-Toxic, Comfortable Pain Distress: Mild Mental Status: Positive for: Alert and Oriented X 3 - Systems Exam Head: Present: Atraumatic, Normocephalic Pupils: Present: PERRL Extroacular Muscles: Present: EOMI Conjunctiva: Present: Normal Ears: Present: Normal Mouth: Present: Moist Mucous Membranes Pharnyx: Present: Normal. No: ERYTHEMA, EXUDATE Nose (External): Present: Atraumatic Neck: Present: Normal Range of Motion. No: JVD Respiratory/Chest: Present: Wheezes (moderate expiratory wheezes bilaterally). No: Accessory Muscle Use, Rales, Retracting, Rhonchi, Tachypneic Cardiovascular: Present: Regular Rate and Rhythm, Normal S1, S2. No: Murmurs, Rub, Gallop Abdomen: No: Tenderness, Rebound, Guarding Upper Extremity: Present: Normal Inspection. No: Cyanosis Lower Extremity: Present: Normal Inspection. No: Edema Neurological: Present: Speech Normal Skin: Present: Warm, Dry Psychiatric: Present: Alert, Oriented x 3 Vital Signs Temp Pulse Resp BP Pulse Ox 07/10/18 23:27 69 18 128/72 100 07/10/18 20:30 18 100 07/10/18 20:24 97.6 F 64 16 125/79 99 Medical Decision Making - Lab Interpretations I have reviewed the lab results: Yes Interpretation: All labs normal - RAD Interpretation Pollution Control Engineer: ED Physician ED Course and Treatment: 07/10/18 20:36 -Patient has moderate expiratory wheezes bilaterally -Will get CBC, CMP, CXR -Dose of solumedrol 125 mg IVP given in ED -Duo-neb Q15 min x 3 07/10/18 21:31 -Wheezes have improved s/p duo-neb x 3 and solumedrol -Patient reports he feels better 07/10/18 21:57 -Patient now has slightly worsened wheezes -Will plan on admission for observation -Case discussed with biomedical engineering internship and who agree to admission ( Jacoby Paris) 07/11/18 15:26 pt seen with resdient. s/p asthma exacerbation multiple h/o of admission. vance andrew, pt with persistent wheezing, not medically clear for incarceration accepted by . (Ayaan Barnett) - Lab Interpretations Lab Results: 07/11/18 06:00 07/11/18 06:00 Lab Results 07/11/18 06:00: Sodium 142, Potassium 4.1, Chloride 103, Carbon Dioxide 24, Anion Gap 18, BUN 17, Creatinine 0.9, Est GFR ( Amer) > 60, Est GFR (Non- Af Amer) > 60, Random Glucose 136 H, Calcium 9.6, Total Bilirubin 0.6, AST 26, ALT 26, Alkaline Phosphatase 57, Total Protein 7.1, Albumin 4.4, Globulin 2.7, Albumin/Globulin Ratio 1.6 07/11/18 06:00: WBC 10.2, RBC 4.93, Hgb 15.6, Hct 45.3, MCV 91.9, MCH 31.6, MCHC 34.4, RDW 13.3, Plt Count 317, MPV 10.5, Gran % 93.0 H, Lymph % (Auto) 5.8 L, [place] % (Auto) 1.1, Eos % (Auto) 0.0 L, Baso % (Auto) 0.1, Gran # 9.44 H, Lymph # (Auto) 0.6 L, [place] # (Auto) 0.1, Eos # (Auto) 0.0, Baso # (Auto) 0.01, Neutrophils % (Manual) 91 H, Lymphocytes % (Manual) 6 L, Monocytes % (Manual) 3 , Platelet Evaluation Normal 07/10/18 20:55: Sodium 141, Potassium 3.8, Chloride 104, Carbon Dioxide 27, Anion Gap 14, BUN 15, Creatinine 0.9, Est GFR ( Amer) > 60, Est GFR (Non- Af Amer) > 60, Random Glucose 98, Calcium 9.0, Total Bilirubin 0.4, AST 24, ALT 31, Alkaline Phosphatase 60, Total Protein 7.0, Albumin 4.2, Globulin 2.8, Albumin/Globulin Ratio 1.5 07/10/18 20:55: WBC 9.2 D, RBC 4.70, Hgb 15.0, Hct 43.5, MCV 92.6, MCH 31.9, MCHC 34.5, RDW 13.4, Plt Count 281, MPV 10.3, Gran % 59.8, Lymph % (Auto) 23.2, [place] % (Auto) 9.5 H, Eos % (Auto) 7.2 H, Baso % (Auto) 0.3, Gran # 5.52, Lymph # (Auto) 2.1, [place] # (Auto) 0.9 H, Eos # (Auto) 0.7, Baso # (Auto) 0.03 - RAD Interpretation Narrative RAD Interpretations (Text): 07/10/18 21:58 CXR without acute findings (Jacoby Paris) Radiology Orders: 07/10/18 20:31 CXR [CHEST PORTABLE] [RAD] Stat - Medication Orders Current Medication Orders: Albuterol/Ipratropium (Duoneb 3 Mg/0.5 Mg (3 Ml) Ud) 3 ml IH [id number] MARV Last Admin: 07/11/18 12:34 Dose: 3 ml Albuterol/Ipratropium (Duoneb 3 Mg/0.5 Mg (3 Ml) Ud) 3 ml IH Q2H PRN PRN Reason: Shortness of Breath Guaifenesin (Robitussin) 100 mg PO Q4H PRN PRN Reason: Cough Methylprednisolone (Solu-Medrol) 40 mg IV Q12 MARV Nicotine (Nicoderm Cq) 1 patch TD DAILY MARV Last Admin: 07/11/18 12:29 Dose: 1 patch MAR Transdermal Patch Site Document 07/11/18 12:29 (Rec: 07/11/18 12:29 [id number]) Transdermal Patch Site Transdermal Patch Site Right Outer Upper Arm Discontinued Medications Albuterol/Ipratropium (Duoneb 3 Mg/0.5 Mg (3 Ml) Ud) 3 ml IH Q15M MARV Stop: 07/10/18 21:01 Last Admin: 07/10/18 21:10 Dose: 3 ml Albuterol/Ipratropium (Duoneb 3 Mg/0.5 Mg (3 Ml) Ud) 3 ml IH STAT STA Stop: 07/10/18 21:56 Last Admin: 07/10/18 22:00 Dose: 3 ml Methylprednisolone (Solu-Medrol) 125 mg IVP STAT STA Stop: 07/10/18 20:33 Last Admin: 07/10/18 20:52 Dose: 125 mg IVP Administration Document 07/10/18 20:52 CHARITO (Rec: 07/10/18 20:53 RG [id number]) Charges for Administration # of IVP Administrations 1 Methylprednisolone (Solu-Medrol) 30 mg IV Q6 MARV Last Admin: 07/11/18 05:46 Dose: 30 mg eMAR Start Stop Document 07/11/18 05:46 CARMEN (Rec: 07/11/18 05:46 MAD [id number]) Intravenous Solution Start Date 07/11/18 Start Time 05:46 Disposition/Present on Arrival - Present on Arrival Any Indicators Present on Arrival: No History of DVT/PE: No History of Uncontrolled Diabetes: No Urinary Catheter: No History of Decub. Ulcer: No History Surgical Site Infection Following: None - Disposition Have Diagnosis and Disposition been Completed?: Yes Disposition Time: 21:59 Patient Plan: Admission - Disposition Diagnosis: Asthma exacerbation, Shortness of breath Disposition: HOSPITALIZED Patient Problems: Current Active Problems Problem Status Onset Asthma exacerbation Acute Shortness of breath Acute Condition: FAIR
[2018-07-10 21:11] LABS: BASO # 0.03 K/mm3 (0.0-2.0); BASO % 0.3 % (0.0-3.0); EOS # 0.7 (0.0-0.7); EOS % 7.2 % (1.5-5.0); GRAN # 5.52 (1.4-6.5); GRAN % 59.8 % (50.0-68.0); LYMPH # 2.1 (1.2-3.4); LYMPH % 23.2 % (22.0-35.0); MEAN CELL VOLUME 92.6 fl (80.0-105.0); MEAN CORPUSCULAR HEMOGLOBIN 31.9 pg (25.0-35.0); MEAN CORPUSCULAR HGB CONC 34.5 g/dl (31.0-37.0); MEAN PLATELET VOLUME 10.3 fl (7.0-11.0); MONO # 0.9 (0.1-0.6); MONO % 9.5 % (1.0-6.0); RBC 4.7 10^6/uL (3.5-6.1); RED CELL DISTRIBUTION WIDTH 13.4 % (11.5-14.5); WHITE BLOOD COUNT 9.2 10^3/ul (4.5-11.0)
[2018-07-10 21:23] LABS: ALB/GLOB RATIO 1.5 (1.1-1.8); ALBUMIN 4.2 g/dL (3.0-4.8); ALT/SGPT 31 U/L (7-56); AST/SGOT 24 U/L (17-59); BLOOD UREA NITROGEN 15 mg/dL (7-21); GFR NON-AFRICAN AMERICAN > 60
[2018-07-10] MEDS ORDERED: Albuterol-Ipratrop 3 mg / 0.5 (3 ml) UD IH STA (21:55)
--- NOTE | 2018-07-10 23:04 | CP.PCM.HP ---
History of Present Illness - History of Present Illness History of Present Illness: Elio Peñaloza, PGY-1 History and Physical for Hospitalist Service CC: Shortness of Breath HPI: Mr. Ballard is a 46 y/o male with a PMHx of severe persistent Asthma who presents to the ED under police custody with the complaint of chest tightness and wheezing with shortness of breath which has been going on for the past few weeks. Patient states symptoms have worsened today, and patient endorses that his symptoms were exacerbated when he was brought in to the police station under custody. Patient admits that he has also had a productive cough with productive yellow sputum that has worsened over the past week. He states that this SOB is similar to his prior asthma exacerbations. Patient states that the SOB is worse with exertion and lying flat but finds relief with inhaler and nebulizers. He denies a history of intubation. Patient reports waking up about 3 times per week at night with SOB. He has been using his rescue inhaler at least twice per day. Patient notes smoking 1/2 pack per day. He denies fever, chills, CP, palpitations, nausea/vomiting, sick contacts, light headedness, weakness, vision changes, abdominal pain, recent travel or changes in weight. Allergies: PCN - anaphylaxis, seafood PMHx: Severe persistent asthma PSHx: inguinal hernia repair Fam Hx: reviewed and noncontributory Soc Hx: smokes 1/2ppd, denies alcohol use, recreational marijuana use Home Meds: brovana 15 mcg IH BID, ventolin 1 puff q6h PMD: Dr. Ferris Present on Admission - Present on Admission Any Indicators Present on Admission: No Review of Systems - Review of Systems Review of Systems: 12 point ROS completed and negative except as described in HPI. Past Patient History - Infectious Disease Hx of Infectious Diseases: None - Past Social History Smoking Status: Current Some Days Smoker - CARDIAC Hx Cardiac Disorders: No - PULMONARY Hx Respiratory Disorders: Yes Hx Asthma: Yes - NEUROLOGICAL Hx Neurological Disorder: No - HEENT Hx HEENT Problems: No - RENAL Hx Chronic Kidney Disease: No - ENDOCRINE/METABOLIC Hx Endocrine Disorders: No - HEMATOLOGICAL/ONCOLOGICAL Hx Blood Disorders: No - INTEGUMENTARY Hx Dermatological Problems: No - MUSCULOSKELETAL/RHEUMATOLOGICAL Hx Falls: No - GASTROINTESTINAL Hx Gastrointestinal Disorders: Yes Hx Gastroesophageal Reflux: Yes Other/Comment: pt states he has a hernia but never followed up - GENITOURINARY/GYNECOLOGICAL Hx Genitourinary Disorders: No Hx Prostate Problems: Yes (BPH) Hx Urinary Tract Infection: Yes - PSYCHIATRIC Hx Psychophysiologic Disorder: No Hx Substance Use: No - SURGICAL HISTORY Other/Comment: tonsillectomy - ANESTHESIA Hx Anesthesia: Yes Hx Anesthesia Reactions: No Hx Malignant Hyperthermia: No Meds Allergies/Adverse Reactions: Allergies Allergy/AdvReac Type Severity Reaction Status Date / Time Penicillins Allergy Severe SWELLING Verified 07/10/18 20:20 seafoods Allergy Mild ITCHING Uncoded 07/10/18 20:20 Physical Exam - Constitutional Appears: Well, Non-toxic, No Acute Distress - Head Exam Head Exam: ATRAUMATIC, NORMAL INSPECTION, NORMOCEPHALIC - Eye Exam Eye Exam: EOMI, Normal appearance Pupil Exam: PERRL - ENT Exam ENT Exam: Mucous Membranes Moist - Neck Exam Neck exam: Positive for: Normal Inspection - Respiratory Exam Respiratory Exam: Wheezes (throughout lung de [place], inspiratory and expiratory), NORMAL BREATHING PATTERN. absent: Accessory Muscle Use, Chest Wall Tenderness, Decreased Breath Sounds, Clear to Auscultation Bilateral, Respiratory Distress, Stridor - Cardiovascular Exam Cardiovascular Exam: RRR, +S1, +S2 - GI/Abdominal Exam GI & Abdominal Exam: Soft. absent: Firm, Guarding, Rebound, Rigid, Tenderness - Extremities Exam Extremities exam: Positive for: full ROM (past midline), normal capillary refill. Negative for: joint swelling, pedal edema Additional comments: L arm handcuffed to bed pole. No erythema present. - Back Exam Back exam: NORMAL INSPECTION. absent: CVA tenderness (L), CVA tenderness (R), tenderness - Neurological Exam Neurological exam: Alert, CN II-XII Intact, Oriented x3 - Psychiatric Exam Psychiatric exam: Normal Affect, Normal Mood - Skin Skin Exam: Dry, Intact, Normal Color, Warm Results - Vital Signs Recent Vital Signs: Last Vital Signs Temp 97.6 F 07/10/18 20:24 Pulse 64 07/10/18 20:24 Resp 16 07/10/18 20:24 BP 125/79 07/10/18 20:24 Pulse Ox 99 07/10/18 20:24 - Labs Result Diagrams: 07/10/18 20:55 07/10/18 20:55 Assessment & Plan - Assessment and Plan (Free Text) Assessment: Mr. Ballard is a 47 year old Male with PMHx of asthma who presents in police custody with an asthma exacerbation. Asthma exacerbation Police custody as inciting factor? WBC 9.2, no suspicion for infection or PNA CXR shows vascular congestion, but no effusions, consolidations, or cardiomegaly. Costophrenic angles clear. F/u final read IV solumedrol 30 q6h Guaifenesin 100 q4h PRN for cough duoneb treatments 3q6h scheduled and 3q2h PRN f/u peak flow for baseline PFTs DVT ppx SCDs Dispo: Regular diet Patient seen, case reviewed, and plan discussed with . Elio Peñaloza, PGY-1
[2018-07-10] MEDS ORDERED: methylPREDNISolone 30 GM in Sodium Chloride 0.9% 250 ML IV SCH (23:15)
[2018-07-11] MEDS ORDERED: MethylPREDNISolone 40 mg Vial IV SCH
[2018-07-11] MEDS: Albuterol-Ipratrop 3 mg / 0.5 (3 ml) UD IH SCH ×5 (02:42→19:26)
[2018-07-11 06:48] LABS: ALB/GLOB RATIO 1.6 (1.1-1.8); ALBUMIN 4.4 g/dL (3.0-4.8); ALT/SGPT 26 U/L (7-56); AST/SGOT 26 U/L (17-59); BLOOD UREA NITROGEN 17 mg/dL (7-21); CALCIUM 9.6 mg/dL (8.4-10.5); GFR NON-AFRICAN AMERICAN > 60
[2018-07-11 06:56] LABS: BASO # 0.01 K/mm3 (0.0-2.0); BASO % 0.1 % (0.0-3.0); GRAN # 9.44 (1.4-6.5); HEMOGLOBIN 15.6 g/dL (14.0-18.0); LYMPH # 0.6 (1.2-3.4); LYMPH % 5.8 % (22.0-35.0); MEAN CELL VOLUME 91.9 fl (80.0-105.0); MEAN CORPUSCULAR HEMOGLOBIN 31.6 pg (25.0-35.0); MEAN CORPUSCULAR HGB CONC 34.4 g/dl (31.0-37.0); MEAN PLATELET VOLUME 10.5 fl (7.0-11.0); MONO # 0.1 (0.1-0.6); MONO % 1.1 % (1.0-6.0); PLATELET COUNT 317 10^3/uL (120.0-450.0); RBC 4.93 10^6/uL (3.5-6.1); RED CELL DISTRIBUTION WIDTH 13.3 % (11.5-14.5); WHITE BLOOD COUNT 10.2 10^3/ul (4.5-11.0)
[2018-07-11 10:19] LABS: LYMPHOCYTE 6 % (22.0-35.0); MONOCYTE 3 % (1.0-6.0); NEUTROPHIL 91 % (50.0-70.0)
[2018-07-11 10:20] LABS: PLATELET ESTIMATE NORMAL (NORMAL)
--- NOTE | 2018-07-11 10:29 | RAD ---
Date of service: 07/10/2018 HISTORY: SOB COMPARISON: 10/03/2017. FINDINGS: LUNGS: The lungs are well inflated and clear. PLEURA: No significant pleural effusion identified, no pneumothorax apparent. CARDIOVASCULAR: Normal. OSSEOUS STRUCTURES: No significant abnormalities. VISUALIZED UPPER ABDOMEN: Normal. OTHER FINDINGS: None. IMPRESSION: No active pulmonary disease.
--- NOTE | 2018-07-11 14:10 | CP.PCM.PN ---
<Lilian Berg - Last Filed: 07/11/18 14:03> Subjective - Date & Time of Evaluation Date of Evaluation: 07/11/18 Time of Evaluation: 08:00 - Subjective Subjective: Lilian Berg, PGY2, Medicine Progress Note for Dr Coleman: Patient seen and examined at bedside. No acute events overnight. Patient reports mild improvement in his breathing, states that he still has wheezes. Reports mild cough. Denies fevers, chills, nausea, vomiting, abdominal pain, leg swelling, urinary complaints. Reports good appetite, eating well. Last BM this AM. Objective - Vital Signs/Intake and Output Vital Signs (last 24 hours): Temp Pulse Resp BP Pulse Ox 98.5 F 77 18 153/83 H 100 07/11/18 12:49 07/11/18 12:49 07/11/18 12:49 07/11/18 12:49 07/11/18 12:49 - Medications Medications: Current Medications Albuterol/Ipratropium (Duoneb 3 Mg/0.5 Mg (3 Ml) Ud) 3 ml IH [id number] [facility] Last Admin: 07/11/18 12:34 Dose: 3 ml Albuterol/Ipratropium (Duoneb 3 Mg/0.5 Mg (3 Ml) Ud) 3 ml IH Q2H PRN PRN Reason: Shortness of Breath Guaifenesin (Robitussin) 100 mg PO Q4H PRN PRN Reason: Cough Methylprednisolone (Solu-Medrol) 40 mg IV Q12 [facility] Nicotine (Nicoderm Cq) 1 patch TD DAILY [facility] Last Admin: 07/11/18 12:29 Dose: 1 patch - Constitutional Appears: Non-toxic, No Acute Distress - Head Exam Head Exam: ATRAUMATIC, NORMOCEPHALIC - Eye Exam Eye Exam: EOMI, PERRL. absent: Conjunctival injection, Nystagmus, Scleral icterus Pupil Exam: NORMAL ACCOMODATION, PERRL. absent: Irregular, Miosis, Unequal - ENT Exam ENT Exam: Mucous Membranes Moist - Neck Exam Neck Exam: Full ROM - Respiratory Exam Respiratory Exam: Wheezes (Mild wheezing b/l upper lobes). absent: Accessory Muscle Use, Chest Wall Tenderness, Decreased Breath Sounds, Rales, Rhonchi, Respiratory Distress, Stridor - Cardiovascular Exam Cardiovascular Exam: RRR, +S1, +S2. absent: Murmur - GI/Abdominal Exam GI & Abdominal Exam: Soft, Normal Bowel Sounds. absent: Distended, Firm, Guarding, Rigid, Tenderness, Mass, Organomegaly, Rebound - Extremities Exam Extremities Exam: Normal Inspection. absent: Calf Tenderness, Pedal Edema - Back Exam Back Exam: NORMAL INSPECTION - Neurological Exam Neurological Exam: Alert, Awake, Oriented x3 - Psychiatric Exam Psychiatric exam: Normal Affect, Normal Mood - Skin Skin Exam: Dry, Normal Color, Warm Assessment and Plan - Assessment and Plan (Free Text) Assessment: 47 year old male with PMH asthma (never requiring intubations), presents for sob , wheezing, admitted for asthma exacerbation: SOB: 2/2 asthma exacerbation - CXR neg for infiltrates - solumedrol 125 mg IV given in ED - weaned down solumedrol to 40 mg IV q 12 - duoneb treatments 3q6h scheduled and 3q2h PRN - Guaifenesin 100 q4h PRN for cough - f/u peak flow for baseline PFTs Tobacco abuse: - advised smoking cessation - nicotine patch DVT ppx SCDs Dispo: Regular diet Patient seen, case reviewed, and plan discussed with Dr Coleman. <Patric Coleman - Last Filed: 07/11/18 14:49> Objective - Vital Signs/Intake and Output Vital Signs (last 24 hours): Temp Pulse Resp BP Pulse Ox 98.5 F 77 18 153/83 H 100 07/11/18 12:49 07/11/18 12:49 07/11/18 12:49 07/11/18 12:49 07/11/18 12:49 - Medications Medications: Current Medications Albuterol/Ipratropium (Duoneb 3 Mg/0.5 Mg (3 Ml) Ud) 3 ml IH [id number] [facility] Last Admin: 07/11/18 12:34 Dose: 3 ml Albuterol/Ipratropium (Duoneb 3 Mg/0.5 Mg (3 Ml) Ud) 3 ml IH Q2H PRN PRN Reason: Shortness of Breath Guaifenesin (Robitussin) 100 mg PO Q4H PRN PRN Reason: Cough Methylprednisolone (Solu-Medrol) 40 mg IV Q12 [facility] Nicotine (Nicoderm Cq) 1 patch TD DAILY [facility] Last Admin: 07/11/18 12:29 Dose: 1 patch Attending/Attestation - Attestation I have personally seen and examined this patient.: Yes I have fully participated in the care of the patient.: Yes I have reviewed all pertinent clinical information, including history, physical exam and plan: Yes Notes (Text): 07/11/18 14:48 47 year old male admitted with asthma exacerbation. He is on iv steroids and duonebs. Still has mild-moderate wheezing today. Will taper solumedrol to 40 mg q12h. He was counselled on smoking cessation. Patric Coleman MD Hospitalist.
--- NOTE | 2018-07-11 14:30 | CARD ---
APPROVED REPORT Date of service: 07/10/2018 EKG Measurement Heart [id number] <Conclusion> Normal sinus rhythm Normal ECG
[2018-07-11] MEDS: Albuterol-Ipratrop 3 mg / 0.5 (3 ml) UD IH PRN (16:20)
[2018-07-11] MEDS: MethylPREDNISolone 40 mg Vial IV SCH (21:21)
[2018-07-11] MEDS: Alum-Mag Hydrox-Simethicone Susp (30 mL) PO PRN (23:14)
[2018-07-12] MEDS: Albuterol-Ipratrop 3 mg / 0.5 (3 ml) UD IH SCH ×5 (01:05→19:32)
[2018-07-12] MEDS: Alum-Mag Hydrox-Simethicone Susp (30 mL) PO PRN ×2 (05:54→06:50)
[2018-07-12 07:20] LABS: BASO # 0.01 K/mm3 (0.0-2.0); BASO % 0.1 % (0.0-3.0); GRAN # 15.4 (1.4-6.5); GRAN % 85.7 % (50.0-68.0); LYMPH # 1.2 (1.2-3.4); LYMPH % 6.6 % (22.0-35.0); MEAN CELL VOLUME 91.4 fl (80.0-105.0); MEAN CORPUSCULAR HEMOGLOBIN 32.7 pg (25.0-35.0); MEAN CORPUSCULAR HGB CONC 35.8 g/dl (31.0-37.0); MEAN PLATELET VOLUME 10.7 fl (7.0-11.0); MONO # 1.4 (0.1-0.6); MONO % 7.6 % (1.0-6.0); RBC 5.59 10^6/uL (3.5-6.1); RED CELL DISTRIBUTION WIDTH 13.5 % (11.5-14.5)
[2018-07-12 07:22] LABS: HEMOGLOBIN 18.3 g/dL (14.0-18.0)
[2018-07-12 07:32] LABS: ALB/GLOB RATIO 1.5 (1.1-1.8); ALBUMIN 5.2 g/dL (3.0-4.8); ALT/SGPT 23 U/L (7-56); AST/SGOT 30 U/L (17-59); BLOOD UREA NITROGEN 20 mg/dL (7-21); CALCIUM 10.1 mg/dL (8.4-10.5); GFR NON-AFRICAN AMERICAN > 60
[2018-07-12 08:41] LABS: BARBITURATES, UR NEGATIVE (NEGATIVE); BENZODIAZEPINES, UR NEGATIVE (NEGATIVE); OPIATES, UR POSITIVE (NEGATIVE); PHENCYCLIDINE, UR NEGATIVE (NEGATIVE)
[2018-07-12] MEDS: MethylPREDNISolone 40 mg Vial IV SCH ×2 (09:01→21:17)
[2018-07-12] MEDS: Sodium Chloride 0.9% 1,000 ML IV SCH ×2 (10:05→21:21)
--- NOTE | 2018-07-12 13:13 | CP.PCM.PN ---
<Jamal Henderson - Last Filed: 07/12/18 13:44> Subjective - Date & Time of Evaluation Date of Evaluation: 07/12/18 Time of Evaluation: 09:15 - Subjective Subjective: PGY-[address] Coleman. Overnight patient had nausea, vomiting, diarrhea. He complained of symptoms typical of opioid withdrawal such as abd cramps, bone aches, anxiety. Otherwise , stated his breathing was better compared to when he arrived. 2 police officers also in room. Denied chest pain, fevers, bleeding. Stated he's been snorting heroin daily for past 4 years. Objective - Vital Signs/Intake and Output Vital Signs (last 24 hours): Temp Pulse Resp BP Pulse Ox 98.5 F 83 19 142/86 96 07/12/18 07:00 07/12/18 09:55 07/12/18 07:00 07/12/18 09:55 07/12/18 07:00 Intake and Output: 07/12/18 07/12/18 06:59 18:59 Intake Total 300 Balance 300 - Medications Medications: Current Medications Acetaminophen (Tylenol 325mg Tab) 650 mg PO Q6H PRN PRN Reason: Fever >100.4 F Al Hydrox/Mg Hydrox/Simethicone (Maalox Plus 30 Ml) 30 ml PO DAILY PRN PRN Reason: Indigestion / Heartburn Last Admin: 07/12/18 06:50 Dose: 30 ml Albuterol/Ipratropium (Duoneb 3 Mg/0.5 Mg (3 Ml) Ud) 3 ml IH [id number] Last Admin: 07/12/18 11:15 Dose: 3 ml Albuterol/Ipratropium (Duoneb 3 Mg/0.5 Mg (3 Ml) Ud) 3 ml IH Q2H PRN PRN Reason: Shortness of Breath Last Admin: 07/11/18 16:20 Dose: 3 ml Clonidine HCl (Catapres) 0.1 mg PO Q8H PRN PRN Reason: Opiod Withdrawal Symptoms Last Admin: 07/12/18 09:55 Dose: 0.1 mg Guaifenesin (Robitussin) 100 mg PO Q4H PRN PRN Reason: Cough Hydroxyzine HCl (Atarax) 25 mg PO Q8H PRN PRN Reason: Anxiety Sodium Chloride (Sodium Chloride 0.9%) 1,000 mls @ 80 mls/hr IV .[id number] [facility] Last Admin: 07/12/18 10:05 Dose: 80 mls/hr Methadone HCl (Methadone) 15 mg PO DAILY [facility] Stop: 07/13/18 10:01 Methadone HCl (Methadone) 10 mg PO DAILY [facility] Stop: 07/14/18 10:01 Methadone HCl (Methadone) 5 mg PO DAILY [facility] Stop: 07/15/18 10:01 Methylprednisolone (Solu-Medrol) 40 mg IV Q12 [facility] Last Admin: 07/12/18 09:01 Dose: 40 mg Nicotine (Nicoderm Cq) 1 patch TD DAILY [facility] Last Admin: 07/12/18 09:01 Dose: 1 patch Ondansetron HCl (Zofran Inj) 4 mg IVP Q6H PRN PRN Reason: Nausea/Vomiting Last Admin: 07/12/18 05:54 Dose: 4 mg Pantoprazole Sodium (Protonix Inj) 40 mg IVP DAILY [facility] Last Admin: 07/12/18 09:00 Dose: 40 mg - Labs Labs: 07/12/18 06:30 07/12/18 06:30 - Additional Findings Additional findings: - Constitutional Appears: Non-toxic, No Acute Distress - Head Exam Head Exam: ATRAUMATIC, NORMOCEPHALIC - Eye Exam Eye Exam: EOMI, PERRL. absent: Conjunctival injection, Nystagmus, Scleral icterus Pupil Exam: NORMAL ACCOMODATION, PERRL. absent: Irregular, Miosis, Unequal - ENT Exam ENT Exam: Mucous Membranes Moist - Neck Exam Neck Exam: Full ROM - Respiratory Exam Respiratory Exam: Wheezes (Mild wheezing b/l upper lobes). absent: Accessory Muscle Use, Chest Wall Tenderness, Decreased Breath Sounds, Rales, Rhonchi, Respiratory Distress, Stridor - Cardiovascular Exam Cardiovascular Exam: RRR, +S1, +S2. absent: Murmur - GI/Abdominal Exam GI & Abdominal Exam: Soft, Normal Bowel Sounds. absent: Distended, Firm, Guarding, Rigid, Tenderness, Mass, Organomegaly, Rebound - Extremities Exam Extremities Exam: Normal Inspection. absent: Calf Tenderness, Pedal Edema - Back Exam Back Exam: NORMAL INSPECTION - Neurological Exam Neurological Exam: Alert, Awake, Oriented x3 - Psychiatric Exam Psychiatric exam: Normal Affect, Normal Mood - Skin Skin Exam: Dry, Normal Color, Warm Assessment and Plan - Assessment and Plan (Free Text) Assessment: 47 year old male with PMH asthma (never requiring intubations), presents for sob , wheezing, admitted for asthma exacerbation: SOB 2/2 asthma exacerbation - CXR neg for infiltrates - solumedrol 125 mg IV given in ED - weaned down solumedrol to 40 mg IV q 12 - duoneb treatments 3q6h scheduled and 3q2h PRN - Guaifenesin 100 q4h PRN for cough - f/u peak flow for baseline PFTs Opioid Withdrawal - Methadone taper start at 20mg, decrease by 5mg each day - Clonidine 0.1mg po q8h prn for withdrawal symptoms - Hydoxyzine 25mg po q8h prn for anxiety/restlessness - zofran 4mg ivp q6h prn for n/v (Qtc 427) Diarrhea - Likely 2/2 to opioid withdrawal - F/U fecal leukocytes, cdiff, ova and parasites, stool cx, stool electrolytes, FOBT Polycythemia - Likely due to hemoconcentration 2/2 vomiting/diarrhea - NS 80cc/hr Cocaine Abuse - UDS positive for cocaine - Avoid beta-blockers for now Tobacco abuse - advised smoking cessation - nicotine patch DVT ppx SCDs Protonix 40mg ivp qd NS @ 80cc/hr Dispo: Regular diet Patient seen, case reviewed, and plan discussed with Dr Coleman. <Patric Coleman - Last Filed: 07/12/18 15:00> Objective - Vital Signs/Intake and Output Vital Signs (last 24 hours): Temp Pulse Resp BP Pulse Ox 98.5 F 83 19 142/86 96 07/12/18 07:00 07/12/18 09:55 07/12/18 07:00 07/12/18 09:55 07/12/18 07:00 Intake and Output: 07/12/18 07/12/18 06:59 18:59 Intake Total 300 Balance 300 - Medications Medications: Current Medications Acetaminophen (Tylenol 325mg Tab) 650 mg PO Q6H PRN PRN Reason: Fever >100.4 F Al Hydrox/Mg Hydrox/Simethicone (Maalox Plus 30 Ml) 30 ml PO DAILY PRN PRN Reason: Indigestion / Heartburn Last Admin: 07/12/18 06:50 Dose: 30 ml Albuterol/Ipratropium (Duoneb 3 Mg/0.5 Mg (3 Ml) Ud) 3 ml IH [id number] [facility] Last Admin: 07/12/18 11:15 Dose: 3 ml Albuterol/Ipratropium (Duoneb 3 Mg/0.5 Mg (3 Ml) Ud) 3 ml IH Q2H PRN PRN Reason: Shortness of Breath Last Admin: 07/11/18 16:20 Dose: 3 ml Clonidine HCl (Catapres) 0.1 mg PO Q8H PRN PRN Reason: Opiod Withdrawal Symptoms Last Admin: 07/12/18 09:55 Dose: 0.1 mg Guaifenesin (Robitussin) 100 mg PO Q4H PRN PRN Reason: Cough Hydroxyzine HCl (Atarax) 25 mg PO Q8H PRN PRN Reason: Anxiety Sodium Chloride (Sodium Chloride 0.9%) 1,000 mls @ 80 mls/hr IV .[id number] [facility] Last Admin: 07/12/18 10:05 Dose: 80 mls/hr Methadone HCl (Methadone) 15 mg PO DAILY [facility] Stop: 07/13/18 10:01 Methadone HCl (Methadone) 10 mg PO DAILY [facility] Stop: 07/14/18 10:01 Methadone HCl (Methadone) 5 mg PO DAILY [facility] Stop: 07/15/18 10:01 Methylprednisolone (Solu-Medrol) 40 mg IV Q12 [facility] Last Admin: 07/12/18 09:01 Dose: 40 mg Nicotine (Nicoderm Cq) 1 patch TD DAILY [facility] Last Admin: 07/12/18 09:01 Dose: 1 patch Ondansetron HCl (Zofran Inj) 4 mg IVP Q6H PRN PRN Reason: Nausea/Vomiting Last Admin: 07/12/18 05:54 Dose: 4 mg Pantoprazole Sodium (Protonix Inj) 40 mg IVP DAILY [facility] Last Admin: 07/12/18 09:00 Dose: 40 mg - Labs Labs: 07/12/18 06:30 07/12/18 06:30 Attending/Attestation - Attestation I have personally seen and examined this patient.: Yes I have fully participated in the care of the patient.: Yes I have reviewed all pertinent clinical information, including history, physical exam and plan: Yes Notes (Text): 07/12/18 14:58 47 year old male admitted with asthma exacerbation. He is on iv steroids and duonebs. He was counselled on smoking cessation. Overnight he began to have withdrawal sym-toms. Now he admits to recent cocaine/heroin use. Utox was positive for cocaine, opiates and cannabinoids. He was counselled on risks of continued substance abuse. He received methadone and zofran today. Will continue to monitor closely. Leukocytosis likely secondary to steroids. Patric Coleman MD Hospitalist.
[2018-07-13] MEDS: Albuterol-Ipratrop 3 mg / 0.5 (3 ml) UD IH SCH ×5 (02:32→20:04)
--- NOTE | 2018-07-13 06:08 | CP.PCM.PN ---
<Anastacio Martinez - Last Filed: 07/13/18 19:41> Subjective - Date & Time of Evaluation Date of Evaluation: 07/13/18 Time of Evaluation: 06:06 - Subjective Subjective: -Complains of wheezing; asks for breathing treatment -Moving bowels/urinating fine -No other complaints Objective - Vital Signs/Intake and Output Vital Signs (last 24 hours): Temp Pulse Resp BP Pulse Ox 98.9 F 84 18 131/81 94 L 07/12/18 22:00 07/12/18 22:00 07/12/18 22:00 07/12/18 22:00 07/12/18 22:00 Intake and Output: 07/12/18 07/13/18 18:59 06:59 Intake Total 1440 Output Total 1000 Balance 440 - Medications Medications: Current Medications Acetaminophen (Tylenol 325mg Tab) 650 mg PO Q6H PRN PRN Reason: Fever >100.4 F Al Hydrox/Mg Hydrox/Simethicone (Maalox Plus 30 Ml) 30 ml PO DAILY PRN PRN Reason: Indigestion / Heartburn Last Admin: 07/12/18 06:50 Dose: 30 ml Albuterol/Ipratropium (Duoneb 3 Mg/0.5 Mg (3 Ml) Ud) 3 ml IH [id number] [facility] Last Admin: 07/13/18 02:32 Dose: Not Given Albuterol/Ipratropium (Duoneb 3 Mg/0.5 Mg (3 Ml) Ud) 3 ml IH Q2H PRN PRN Reason: Shortness of Breath Last Admin: 07/11/18 16:20 Dose: 3 ml Clonidine HCl (Catapres) 0.1 mg PO Q8H PRN PRN Reason: Opiod Withdrawal Symptoms Last Admin: 07/12/18 09:55 Dose: 0.1 mg Guaifenesin (Robitussin) 100 mg PO Q4H PRN PRN Reason: Cough Hydroxyzine HCl (Atarax) 25 mg PO Q8H PRN PRN Reason: Anxiety Sodium Chloride (Sodium Chloride 0.9%) 1,000 mls @ 80 mls/hr IV .[id number] [facility] Last Admin: 07/12/18 21:21 Dose: 80 mls/hr Methadone HCl (Methadone) 15 mg PO DAILY [facility] Stop: 07/13/18 10:01 Methadone HCl (Methadone) 10 mg PO DAILY [facility] Stop: 07/14/18 10:01 Methadone HCl (Methadone) 5 mg PO DAILY [facility] Stop: 07/15/18 10:01 Methylprednisolone (Solu-Medrol) 40 mg IV Q12 [facility] Last Admin: 07/12/18 21:17 Dose: 40 mg Nicotine (Nicoderm Cq) 1 patch TD DAILY [facility] Last Admin: 07/12/18 09:01 Dose: 1 patch Ondansetron HCl (Zofran Inj) 4 mg IVP Q6H PRN PRN Reason: Nausea/Vomiting Last Admin: 07/12/18 05:54 Dose: 4 mg Pantoprazole Sodium (Protonix Ec Tab) 40 mg PO 0600 [facility] - Labs Labs: 07/12/18 06:30 07/12/18 06:30 - Constitutional Appears: Non-toxic, No Acute Distress - Head Exam Head Exam: ATRAUMATIC, NORMAL INSPECTION, NORMOCEPHALIC - Eye Exam Eye Exam: EOMI, Normal appearance - ENT Exam ENT Exam: Mucous Membranes Moist - Neck Exam Neck Exam: Full ROM - Respiratory Exam Respiratory Exam: Wheezes (upper and lower lobes bilaterally), NORMAL BREATHING PATTERN. absent: Clear to Ausculation Bilateral, Rhonchi, Respiratory Distress - Cardiovascular Exam Cardiovascular Exam: REGULAR RHYTHM, +S1, +S2 - GI/Abdominal Exam GI & Abdominal Exam: Soft, Normal Bowel Sounds. absent: Tenderness - Extremities Exam Extremities Exam: Normal Inspection. absent: Pedal Edema - Back Exam Back Exam: NORMAL INSPECTION - Neurological Exam Neurological Exam: Alert, Awake, Oriented x3 - Psychiatric Exam Psychiatric exam: Normal Affect, Normal Mood - Skin Skin Exam: Intact (acne scars), Normal Color, Warm Assessment and Plan - Assessment and Plan (Free Text) Assessment: 47 year old male with PMH asthma (never requiring intubations), presents for sob , wheezing, admitted for asthma exacerbation: Plan: SOB 2/2 asthma exacerbation - solumedrol to 30 mg IV q 12, continue to taper - duoneb treatments 3q6h scheduled and 3q2h PRN - Guaifenesin 100 q4h PRN for cough Opioid Withdrawal - Methadone taper start at 20mg, decrease by 5mg each day - Clonidine 0.1mg po q8h prn for withdrawal symptoms - Hydoxyzine 25mg po q8h prn for anxiety/restlessness - zofran 4mg ivp q6h prn for n/v (Qtc 427) Diarrhea - Likely 2/2 to opioid withdrawal - F/U fecal leukocytes, cdiff, ova and parasites, stool cx, stool electrolytes, FOBT Polycythemia - Likely due to hemoconcentration 2/2 vomiting/diarrhea - NS 80cc/hr Cocaine Abuse - UDS positive for cocaine - Avoid beta-blockers for now Tobacco abuse - advised smoking cessation - nicotine patch DVT ppx SCDs Protonix 40mg ivp qd NS @ 80cc/hr Patient seen, case reviewed, and plan discussed with Dr Coleman. Anastacio Martinez PGY-1 Internal Medicine Resident <Patric Coleman - Last Filed: 07/14/18 07:24> Objective - Vital Signs/Intake and Output Vital Signs (last 24 hours): Temp Pulse Resp BP Pulse Ox 98.6 F 68 18 114/70 96 07/13/18 21:43 07/14/18 05:06 07/13/18 21:43 07/14/18 05:06 07/13/18 21:43 Intake and Output: 07/14/18 07/14/18 06:59 18:59 Intake Total 1260 Output Total 2275 Balance -1015 - Medications Medications: Current Medications Acetaminophen (Tylenol 325mg Tab) 650 mg PO Q6H PRN PRN Reason: Fever >100.4 F Al Hydrox/Mg Hydrox/Simethicone (Maalox Plus 30 Ml) 30 ml PO DAILY PRN PRN Reason: Indigestion / Heartburn Last Admin: 07/12/18 06:50 Dose: 30 ml Albuterol/Ipratropium (Duoneb 3 Mg/0.5 Mg (3 Ml) Ud) 3 ml IH [id number] [facility] Last Admin: 07/14/18 07:14 Dose: Not Given Albuterol/Ipratropium (Duoneb 3 Mg/0.5 Mg (3 Ml) Ud) 3 ml IH Q2H PRN PRN Reason: Shortness of Breath Last Admin: 07/11/18 16:20 Dose: 3 ml Clonidine HCl (Catapres) 0.1 mg PO Q8H PRN PRN Reason: Opiod Withdrawal Symptoms Last Admin: 07/14/18 05:06 Dose: 0.1 mg Guaifenesin (Robitussin) 100 mg PO Q4H PRN PRN Reason: Cough Last Admin: 07/13/18 17:47 Dose: 100 mg Hydroxyzine HCl (Atarax) 25 mg PO Q8H PRN PRN Reason: Anxiety Last Admin: 07/14/18 05:06 Dose: 25 mg Sodium Chloride (Sodium Chloride 0.9%) 1,000 mls @ 80 mls/hr IV .[id number] [facility] Last Admin: 07/13/18 21:03 Dose: 80 mls/hr Methadone HCl (Methadone) 10 mg PO DAILY [facility] Stop: 07/14/18 10:01 Methadone HCl (Methadone) 5 mg PO DAILY [facility] Stop: 07/15/18 10:01 Methylprednisolone (Solu-Medrol) 30 mg IV Q12 [facility] Last Admin: 07/13/18 21:03 Dose: 30 mg Nicotine (Nicoderm Cq) 1 patch TD DAILY [facility] Last Admin: 07/13/18 17:47 Dose: 1 patch Ondansetron HCl (Zofran Inj) 4 mg IVP Q6H PRN PRN Reason: Nausea/Vomiting Last Admin: 07/12/18 05:54 Dose: 4 mg Pantoprazole Sodium (Protonix Ec Tab) 40 mg PO 0600 [facility] Last Admin: 07/14/18 05:03 Dose: 40 mg - Labs Labs: 07/13/18 07:30 07/14/18 06:00 Attending/Attestation - Attestation I have personally seen and examined this patient.: Yes I have fully participated in the care of the patient.: Yes I have reviewed all pertinent clinical information, including history, physical exam and plan: Yes Notes (Text): 07/13/18 47 year old male admitted with asthma exacerbation. Symptoms are slowly improving on tapering iv steroids and duonebs. He was counselled on smoking cessation. His withdrawal symptoms are also improving on methadone. Utox was positive for cocaine, opiates and cannabinoids. He was counselled on risks of continued substance abuse. Leukocytosis likely secondary to steroids is improving. Patric Coleman MD Hospitalist.
[2018-07-13] MEDS: Pantoprazole 40 mg EC Tab PO SCH (06:37)
[2018-07-13 07:45] LABS: BASO # 0.01 K/mm3 (0.0-2.0); BASO % 0.1 % (0.0-3.0); EOS % 0.1 % (1.5-5.0); GRAN # 12.6 (1.4-6.5); GRAN % 80.5 % (50.0-68.0); HEMOGLOBIN 16.5 g/dL (14.0-18.0); LYMPH # 1.8 (1.2-3.4); LYMPH % 11.4 % (22.0-35.0); MEAN CELL VOLUME 91.6 fl (80.0-105.0); MEAN CORPUSCULAR HEMOGLOBIN 31.7 pg (25.0-35.0); MEAN CORPUSCULAR HGB CONC 34.6 g/dl (31.0-37.0); MEAN PLATELET VOLUME 10.6 fl (7.0-11.0); MONO # 1.2 (0.1-0.6); MONO % 7.9 % (1.0-6.0); RBC 5.21 10^6/uL (3.5-6.1); RED CELL DISTRIBUTION WIDTH 13.5 % (11.5-14.5); WHITE BLOOD COUNT 15.7 10^3/ul (4.5-11.0)
[2018-07-13 08:01] LABS: ALB/GLOB RATIO 1.5 (1.1-1.8); ALBUMIN 4.2 g/dL (3.0-4.8); ALT/SGPT 21 U/L (7-56); AST/SGOT 16 U/L (17-59); BLOOD UREA NITROGEN 20 mg/dL (7-21); GFR NON-AFRICAN AMERICAN > 60
[2018-07-13] MEDS: guaiFENesin 100 mg/5 ml Syrup UD PO PRN ×2 (09:59→17:47)
[2018-07-13] MEDS: MethylPREDNISolone 40 mg Vial IV SCH ×2 (09:59→21:03)
[2018-07-13] MEDS: Sodium Chloride 0.9% 1,000 ML IV SCH ×2 (17:47→21:03)
[2018-07-14] MEDS: Pantoprazole 40 mg EC Tab PO SCH (05:03)
--- NOTE | 2018-07-14 06:44 | CP.PCM.PN ---
Subjective - Date & Time of Evaluation Date of Evaluation: 07/14/18 Time of Evaluation: 06:30 - Subjective Subjective: Anastacio Martinez PGY-1 Medicine progress note for Dr Coleman Objective - Vital Signs/Intake and Output Vital Signs (last 24 hours): Temp Pulse Resp BP Pulse Ox 98.6 F 68 18 114/70 96 07/13/18 21:43 07/14/18 05:06 07/13/18 21:43 07/14/18 05:06 07/13/18 21:43 Intake and Output: 07/13/18 07/14/18 18:59 06:59 Intake Total 1260 Output Total 2275 Balance -1015 - Medications Medications: Current Medications Acetaminophen (Tylenol 325mg Tab) 650 mg PO Q6H PRN PRN Reason: Fever >100.4 F Al Hydrox/Mg Hydrox/Simethicone (Maalox Plus 30 Ml) 30 ml PO DAILY PRN PRN Reason: Indigestion / Heartburn Last Admin: 07/12/18 06:50 Dose: 30 ml Albuterol/Ipratropium (Duoneb 3 Mg/0.5 Mg (3 Ml) Ud) 3 ml IH [id number] Last Admin: 07/13/18 20:04 Dose: 3 ml Albuterol/Ipratropium (Duoneb 3 Mg/0.5 Mg (3 Ml) Ud) 3 ml IH Q2H PRN PRN Reason: Shortness of Breath Last Admin: 07/11/18 16:20 Dose: 3 ml Clonidine HCl (Catapres) 0.1 mg PO Q8H PRN PRN Reason: Opiod Withdrawal Symptoms Last Admin: 07/14/18 05:06 Dose: 0.1 mg Guaifenesin (Robitussin) 100 mg PO Q4H PRN PRN Reason: Cough Last Admin: 07/13/18 17:47 Dose: 100 mg Hydroxyzine HCl (Atarax) 25 mg PO Q8H PRN PRN Reason: Anxiety Last Admin: 07/14/18 05:06 Dose: 25 mg Sodium Chloride (Sodium Chloride 0.9%) 1,000 mls @ 80 mls/hr IV .[id number] [facility] Last Admin: 07/13/18 21:03 Dose: 80 mls/hr Methadone HCl (Methadone) 10 mg PO DAILY [facility] Stop: 07/14/18 10:01 Methadone HCl (Methadone) 5 mg PO DAILY [facility] Stop: 07/15/18 10:01 Methylprednisolone (Solu-Medrol) 30 mg IV Q12 [facility] Last Admin: 07/13/18 21:03 Dose: 30 mg Nicotine (Nicoderm Cq) 1 patch TD DAILY [facility] Last Admin: 07/13/18 17:47 Dose: 1 patch Ondansetron HCl (Zofran Inj) 4 mg IVP Q6H PRN PRN Reason: Nausea/Vomiting Last Admin: 07/12/18 05:54 Dose: 4 mg Pantoprazole Sodium (Protonix Ec Tab) 40 mg PO 0600 [facility] Last Admin: 07/14/18 05:03 Dose: 40 mg - Labs Labs: 07/13/18 07:30 07/13/18 07:30
[2018-07-14 06:54] LABS: BASO # 0.01 K/mm3 (0.0-2.0); BASO % 0.1 % (0.0-3.0); EOS % 0.1 % (1.5-5.0); GRAN # 11.99 (1.4-6.5); GRAN % 84.1 % (50.0-68.0); HEMOGLOBIN 15.6 g/dL (14.0-18.0); LYMPH # 1.3 (1.2-3.4); LYMPH % 9.4 % (22.0-35.0); MEAN CELL VOLUME 92.1 fl (80.0-105.0); MEAN CORPUSCULAR HEMOGLOBIN 31.8 pg (25.0-35.0); MEAN CORPUSCULAR HGB CONC 34.5 g/dl (31.0-37.0); MEAN PLATELET VOLUME 10.8 fl (7.0-11.0); MONO # 0.9 (0.1-0.6); MONO % 6.3 % (1.0-6.0); RBC 4.91 10^6/uL (3.5-6.1); RED CELL DISTRIBUTION WIDTH 13.5 % (11.5-14.5); WHITE BLOOD COUNT 14.3 10^3/ul (4.5-11.0)
--- NOTE | 2018-07-14 06:55 | CP.PCM.DIS ---
Provider - Provider Date of Admission: 07/11/18 10:29 Attending physician: Patric Coleman MD Primary care physician: Leeann Ferris MD Hospital Course - Lab Results Lab Results: Most Recent Lab Values WBC 15.7 10^3/ul (4.5-11.0) H 07/13/18 07:30 RBC 5.21 10^6/uL (3.5-6.1) 07/13/18 07:30 Hgb 16.5 g/dL (14.0-18.0) 07/13/18 07:30 Hct 47.7 % (42.0-52.0) 07/13/18 07:30 MCV 91.6 fl (80.0-105.0) 07/13/18 07:30 MCH 31.7 pg (25.0-35.0) 07/13/18 07:30 MCHC 34.6 g/dl (31.0-37.0) 07/13/18 07:30 RDW 13.5 % (11.5-14.5) 07/13/18 07:30 Plt Count 290 10^3/uL (120.0-450.0) 07/13/18 07:30 MPV 10.6 fl (7.0-11.0) 07/13/18 07:30 Gran % 80.5 % (50.0-68.0) H 07/13/18 07:30 Lymph % (Auto) 11.4 % (22.0-35.0) L 07/13/18 07:30 Steele % (Auto) 7.9 % (1.0-6.0) H 07/13/18 07:30 Eos % (Auto) 0.1 % (1.5-5.0) L 07/13/18 07:30 Baso % (Auto) 0.1 % (0.0-3.0) 07/13/18 07:30 Gran # 12.60 (1.4-6.5) H 07/13/18 07:30 Lymph # (Auto) 1.8 (1.2-3.4) 07/13/18 07:30 Steele # (Auto) 1.2 (0.1-0.6) H 07/13/18 07:30 Eos # (Auto) 0.0 (0.0-0.7) 07/13/18 07:30 Baso # (Auto) 0.01 K/mm3 (0.0-2.0) 07/13/18 07:30 Neutrophils % (Manual) 91 % (50.0-70.0) H 07/11/18 06:00 Lymphocytes % (Manual) 6 % (22.0-35.0) L 07/11/18 06:00 Monocytes % (Manual) 3 % (1.0-6.0) 07/11/18 06:00 Platelet Evaluation Normal (NORMAL) 07/11/18 06:00 Sodium 139 mmol/L (132-148) 07/13/18 07:30 Potassium 4.4 mmol/L (3.6-5.0) 07/13/18 07:30 Chloride 103 mmol/L (98-107) 07/13/18 07:30 Carbon Dioxide 26 mmol/L (21-33) 07/13/18 07:30 Anion Gap 15 (10-20) 07/13/18 07:30 BUN 20 mg/dL (7-21) 07/13/18 07:30 Creatinine 0.9 mg/dl (0.8-1.5) 07/13/18 07:30 Est GFR ( Amer) > 60 07/13/18 07:30 Est GFR (Non-Af Amer) > 60 07/13/18 07:30 Random Glucose 100 mg/dL (70-110) 07/13/18 07:30 Calcium 9.0 mg/dL (8.4-10.5) 07/13/18 07:30 Phosphorus 4.3 mg/dL (2.5-4.5) 07/13/18 07:30 Magnesium 2.2 mg/dL (1.7-2.2) 07/13/18 07:30 Total Bilirubin 0.8 mg/dL (0.2-1.3) 07/13/18 07:30 AST 16 U/L (17-59) L D 07/13/18 07:30 ALT 21 U/L (7-56) 07/13/18 07:30 Alkaline Phosphatase 53 U/L (38-126) 07/13/18 07:30 Total Protein 7.1 g/dL (5.8-8.3) 07/13/18 07:30 Albumin 4.2 g/dL (3.0-4.8) 07/13/18 07:30 Globulin 2.9 gm/dL 07/13/18 07:30 Albumin/Globulin Ratio 1.5 (1.1-1.8) 07/13/18 07:30 Urine Opiates Screen Positive (NEGATIVE) H 07/12/18 07:50 Urine Methadone Screen Negative (NEGATIVE) 07/12/18 07:50 Ur Barbiturates Screen Negative (NEGATIVE) 07/12/18 07:50 Ur Phencyclidine Scrn Negative (NEGATIVE) 07/12/18 07:50 Ur Amphetamines Screen Negative (NEGATIVE) 07/12/18 07:50 U Benzodiazepines Scrn Negative (NEGATIVE) 07/12/18 07:50 U Oth Cocaine Metabols Positive (NEGATIVE) H 07/12/18 07:50 U Cannabinoids Screen Positive (NEGATIVE) H 07/12/18 07:50 - Hospital Course Hospital Course: Pt is a 46 y/o male with a PMHx of severe persistent Asthma who presented to the ED under police custody with the complaint of chest tightness and wheezing with shortness of breath which has been going on for the past few weeks. Pt was found to be in acute asthma exacerbation. Patient stated symptoms worsened when he was brought in to the police station under custody. Patient admitted that he also had a productive cough with productive yellow sputum that worsened over the week before admission. He states that this SOB is similar to his prior asthma exacerbations. He denied a history of intubation. Patient reported waking up about 3 times per week at night with SOB. He has been using his rescue inhaler at least twice per day. Patient smokes 1/2 pack per day. During his hospital stay, pt was treated with solumedrol, duonebs, and Guaifenesin. Pt was treated for opioid withdrawal with methadone, clonidine, hydroxyzine, and zofran. - Date & Time of H&P Date of H&P: 07/14/18 Time of H&P: 06:50 Discharge Exam - Head Exam Head Exam: ATRAUMATIC, NORMAL INSPECTION, NORMOCEPHALIC - Eye Exam Eye Exam: EOMI, Normal appearance - ENT Exam ENT Exam: Mucous Membranes Moist - Neck Exam Neck exam: Full Rom - Respiratory Exam Respiratory Exam: Wheezes, NORMAL BREATHING PATTERN. absent: Accessory Muscle Use, Rales, Rhonchi - Cardiovascular Exam Cardiovascular Exam: REGULAR RHYTHM, RRR, +S1, +S2. absent: Diastolic murmur, JVD, Systolic Murmur - GI/Abdominal Exam GI & Abdominal Exam: Normal Bowel Sounds, Soft. absent: Distended, Firm, Guarding, Rebound, Rigid, Tenderness - Extremities Exam Extremities exam: full ROM - Back Exam Back exam: FULL ROM, NORMAL INSPECTION. absent: CVA tenderness (L), CVA tenderness (R), muscle spasm - Neurological Exam Neurological exam: Alert, Oriented x3 - Psychiatric Exam Psychiatric exam: Normal Affect, Normal Mood - Skin Skin Exam: Dry, Normal Color, Warm Discharge Plan - Discharge Medications Prescriptions: Prednisone [Deltasone] 40 mg PO DAILY #5 tablet - Follow Up Plan Condition: FAIR Disposition: HOME/ ROUTINE Additional Instructions: 1.Smoking cessation counseled Referrals: Leeann Ferris MD [Primary Care Provider] -
[2018-07-14 07:02] LABS: ALB/GLOB RATIO 1.4 (1.1-1.8); ALT/SGPT 25 U/L (7-56); AST/SGOT 17 U/L (17-59); BLOOD UREA NITROGEN 19 mg/dL (7-21); GFR NON-AFRICAN AMERICAN > 60
[2018-07-14] MEDS: Albuterol-Ipratrop 3 mg / 0.5 (3 ml) UD IH SCH ×4 (07:14→20:39)
[2018-07-14] MEDS ORDERED: Acetylcysteine 20% Inhal Soln (4ml) IH SCH (08:00)
[2018-07-14] MEDS: Acetylcysteine 20% Inhal Soln (4ml) IH SCH ×3 (08:39→20:39)
[2018-07-14] MEDS: MethylPREDNISolone 40 mg Vial IV SCH ×2 (11:16→21:20)
--- NOTE | 2018-07-14 16:28 | CP.PCM.PN ---
Subjective - Date & Time of Evaluation Date of Evaluation: 07/14/18 Time of Evaluation: 07:00 - Subjective Subjective: Anastacio Martinez PGY-1 Internal Medicine Resident, progress note for Dr Coleman. Pt seen and examined this morning. Pt reports wheezing and pulmonary congestion. Pt has no other complaints at this time. Objective - Vital Signs/Intake and Output Vital Signs (last 24 hours): Temp Pulse Resp BP Pulse Ox 98.3 F 79 20 126/78 97 07/14/18 14:00 07/14/18 14:00 07/14/18 14:00 07/14/18 14:00 07/14/18 14:00 Intake and Output: 07/14/18 07/14/18 06:59 18:59 Intake Total 1260 1030 Output Total 2275 2100 Balance -1015 -1070 - Medications Medications: Current Medications Acetaminophen (Tylenol 325mg Tab) 650 mg PO Q6H PRN PRN Reason: Fever >100.4 F Acetylcysteine (Acetylcysteine 20%) 4 ml IH [id number] Last Admin: 07/14/18 13:14 Dose: 4 ml Al Hydrox/Mg Hydrox/Simethicone (Maalox Plus 30 Ml) 30 ml PO DAILY PRN PRN Reason: Indigestion / Heartburn Last Admin: 07/12/18 06:50 Dose: 30 ml Albuterol/Ipratropium (Duoneb 3 Mg/0.5 Mg (3 Ml) Ud) 3 ml IH Q2H PRN PRN Reason: Shortness of Breath Last Admin: 07/11/18 16:20 Dose: 3 ml Albuterol/Ipratropium (Duoneb 3 Mg/0.5 Mg (3 Ml) Ud) 3 ml IH [id number] Last Admin: 07/14/18 13:14 Dose: 3 ml Clonidine HCl (Catapres) 0.1 mg PO Q8H PRN PRN Reason: Opiod Withdrawal Symptoms Last Admin: 07/14/18 05:06 Dose: 0.1 mg Guaifenesin (Mucinex La) 600 mg PO BID [facility] Hydroxyzine HCl (Atarax) 25 mg PO Q8H PRN PRN Reason: Anxiety Last Admin: 07/14/18 05:06 Dose: 25 mg Methadone HCl (Methadone) 5 mg PO DAILY [facility] Stop: 07/15/18 10:01 Methylprednisolone (Solu-Medrol) 20 mg IV Q12 [facility] Nicotine (Nicoderm Cq) 1 patch TD DAILY [facility] Last Admin: 07/14/18 11:17 Dose: Not Given Ondansetron HCl (Zofran Inj) 4 mg IVP Q6H PRN PRN Reason: Nausea/Vomiting Last Admin: 07/12/18 05:54 Dose: 4 mg Pantoprazole Sodium (Protonix Ec Tab) 40 mg PO 0600 [facility] Last Admin: 07/14/18 05:03 Dose: 40 mg - Labs Labs: 07/14/18 06:00 07/14/18 06:00 - Constitutional Appears: No Acute Distress - Head Exam Head Exam: ATRAUMATIC, NORMOCEPHALIC - Eye Exam Eye Exam: EOMI - ENT Exam ENT Exam: Mucous Membranes Moist - Neck Exam Neck Exam: Full ROM - Respiratory Exam Respiratory Exam: Wheezes. absent: Accessory Muscle Use, Respiratory Distress - Cardiovascular Exam Cardiovascular Exam: REGULAR RHYTHM, RRR, +S1, +S2. absent: Diastolic murmur, JVD, Murmur - GI/Abdominal Exam GI & Abdominal Exam: Soft, Normal Bowel Sounds. absent: Rigid, Tenderness - Extremities Exam Extremities Exam: Full ROM. absent: Calf Tenderness, Pedal Edema, Tenderness - Back Exam Back Exam: Full ROM, NORMAL INSPECTION - Neurological Exam Neurological Exam: Alert, Awake - Psychiatric Exam Psychiatric exam: Normal Affect, Normal Mood - Skin Skin Exam: Dry, Normal Color, Warm Assessment and Plan - Assessment and Plan (Free Text) Assessment: 47 year old male with PMH asthma (never requiring intubations), presents for sob , wheezing, admitted for asthma exacerbation Plan: SOB 2/2 asthma exacerbation - continue: solumedrol 20mg IV Q12H, continue to taper; duoneb 3q6h fela, and 3q2h PRN - Start Acetylcysteine 4Q6H; Guaifenesin 100 q4h PRN Opioid Withdrawal - Hydoxyzine 25mg po q8h prn - zofran 4mg ivp q6h prn - Methadone taper start at 5mg, continue to taper - Clonidine 0.1mg po q8h prn Tobacco Use Disorder - advised smoking cessation - continue nicotine patch Cocaine Use Disorder -pt counseled about cessation Ppx SCDs Protonix 40mg Patient seen, examined, assessment/ plan discussed with Dr Coleman. Anastacio Martinez PGY-1 Internal Medicine Resident
[2018-07-15] MEDS: Acetylcysteine 20% Inhal Soln (4ml) IH SCH ×4 (02:45→19:43)
[2018-07-15] MEDS: Albuterol-Ipratrop 3 mg / 0.5 (3 ml) UD IH SCH ×2 (02:45→07:19)
[2018-07-15] MEDS: Pantoprazole 40 mg EC Tab PO SCH (06:00)
[2018-07-15 07:08] LABS: BASO # 0.01 K/mm3 (0.0-2.0); BASO % 0.1 % (0.0-3.0); EOS # 0.2 (0.0-0.7); EOS % 1.5 % (1.5-5.0); GRAN # 8.42 (1.4-6.5); GRAN % 65.2 % (50.0-68.0); HEMOGLOBIN 16.1 g/dL (14.0-18.0); LYMPH # 3.4 (1.2-3.4); LYMPH % 26.4 % (22.0-35.0); MEAN CELL VOLUME 91.9 fl (80.0-105.0); MEAN CORPUSCULAR HEMOGLOBIN 32.5 pg (25.0-35.0); MEAN CORPUSCULAR HGB CONC 35.4 g/dl (31.0-37.0); MEAN PLATELET VOLUME 10.6 fl (7.0-11.0); MONO # 0.9 (0.1-0.6); MONO % 6.8 % (1.0-6.0); RBC 4.95 10^6/uL (3.5-6.1); RED CELL DISTRIBUTION WIDTH 13.3 % (11.5-14.5); WHITE BLOOD COUNT 12.9 10^3/ul (4.5-11.0)
[2018-07-15 07:55] LABS: ALB/GLOB RATIO 1.5 (1.1-1.8); ALBUMIN 3.8 g/dL (3.0-4.8); ALT/SGPT 22 U/L (7-56); AST/SGOT 16 U/L (17-59); BLOOD UREA NITROGEN 22 mg/dL (7-21); CALCIUM 8.7 mg/dL (8.4-10.5); GFR NON-AFRICAN AMERICAN > 60
[2018-07-15] MEDS: MethylPREDNISolone 40 mg Vial IV SCH ×2 (09:10→21:11)
[2018-07-15] MEDS: guaiFENesin 600 mg ER Tab PO SCH ×2 (09:11→17:35)
[2018-07-15] MEDS ORDERED: MethylPREDNISolone 40 mg Vial IVP STA (11:27)
[2018-07-15] MEDS ORDERED: Fluticasone-Salmeterol 250-50mcg Diskus IH SCH (11:30)
[2018-07-15] MEDS: Albuterol-Ipratrop 3 mg / 0.5 (3 ml) UD IH PRN (12:23)
[2018-07-15] MEDS: Tiotropium 18 mcg Cap For Inhalation IH SCH (12:24)
[2018-07-15] MEDS: Arformoterol 15 mcg/2 ml Inh Sol IH SCH ×2 (13:50→19:43)
[2018-07-15] MEDS: Budesonide 0.5 mg/2 ml Inhal Susp UD IH SCH ×2 (13:50→19:43)
--- NOTE | 2018-07-15 14:32 | CP.PCM.PN ---
<Anastacio Martinez - Last Filed: 07/15/18 14:44> Subjective - Date & Time of Evaluation Date of Evaluation: 07/15/18 Time of Evaluation: 05:30 - Subjective Subjective: Anastacio Martinez PGY1, Medicine progress note for Dr Betts. Pt seen and examined at bedside this morning. Pt reports wheezing has greatly improved. Pt has no other complaints at this time. Objective - Vital Signs/Intake and Output Vital Signs (last 24 hours): Temp Pulse Resp BP Pulse Ox 98.6 F 74 18 126/76 100 07/15/18 14:22 07/15/18 14:22 07/15/18 14:22 07/15/18 14:22 07/15/18 14:22 Intake and Output: 07/15/18 07/15/18 06:59 18:59 Intake Total 560 Output Total 2700 Balance -2140 - Medications Medications: Current Medications Acetaminophen (Tylenol 325mg Tab) 650 mg PO Q6H PRN PRN Reason: Fever >100.4 F Acetylcysteine (Acetylcysteine 20%) 4 ml IH [id number] [facility] Last Admin: 07/15/18 12:23 Dose: 4 ml Al Hydrox/Mg Hydrox/Simethicone (Maalox Plus 30 Ml) 30 ml PO DAILY PRN PRN Reason: Indigestion / Heartburn Last Admin: 07/12/18 06:50 Dose: 30 ml Albuterol/Ipratropium (Duoneb 3 Mg/0.5 Mg (3 Ml) Ud) 3 ml IH Q2H PRN PRN Reason: Shortness of Breath Last Admin: 07/15/18 12:23 Dose: 3 ml Arformoterol Tartrate (Brovana) 15 mcg IH [id number] [facility] Last Admin: 07/15/18 13:50 Dose: 15 mcg Budesonide (Pulmicort Respules) 0.5 mg IH [id number] [facility] Last Admin: 07/15/18 13:50 Dose: 0.5 mg Clonidine HCl (Catapres) 0.1 mg PO Q8H PRN PRN Reason: Opiod Withdrawal Symptoms Last Admin: 07/15/18 06:00 Dose: 0.1 mg Guaifenesin (Mucinex La) 600 mg PO BID [facility] Last Admin: 07/15/18 09:11 Dose: 600 mg Hydroxyzine HCl (Atarax) 25 mg PO Q8H PRN PRN Reason: Anxiety Last Admin: 07/14/18 23:11 Dose: 25 mg Methylprednisolone (Solu-Medrol) 20 mg IV Q12 [facility] Last Admin: 07/15/18 09:10 Dose: 20 mg Nicotine (Nicoderm Cq) 1 patch TD DAILY [facility] Last Admin: 07/15/18 09:12 Dose: Not Given Ondansetron HCl (Zofran Inj) 4 mg IVP Q6H PRN PRN Reason: Nausea/Vomiting Last Admin: 07/12/18 05:54 Dose: 4 mg Pantoprazole Sodium (Protonix Ec Tab) 40 mg PO 0600 [facility] Last Admin: 07/15/18 06:00 Dose: 40 mg Tiotropium [place] (Spiriva) 18 mcg IH DAILY [facility] Last Admin: 07/15/18 12:24 Dose: 18 mcg - Labs Labs: 07/15/18 06:45 07/15/18 06:45 - Constitutional Appears: No Acute Distress - Head Exam Head Exam: ATRAUMATIC, NORMOCEPHALIC - Eye Exam Eye Exam: EOMI - ENT Exam ENT Exam: Mucous Membranes Moist - Neck Exam Neck Exam: Full ROM - Respiratory Exam Respiratory Exam: Wheezes, NORMAL BREATHING PATTERN. absent: Accessory Muscle Use - Cardiovascular Exam Cardiovascular Exam: REGULAR RHYTHM, RRR, +S1, +S2. absent: Diastolic murmur, JVD, Murmur - GI/Abdominal Exam GI & Abdominal Exam: Soft. absent: Distended, Firm, Guarding, Rigid, Tenderness - Extremities Exam Extremities Exam: Full ROM, Normal Inspection. absent: Calf Tenderness, Pedal Edema - Back Exam Back Exam: Full ROM, NORMAL INSPECTION. absent: CVA tenderness (L), CVA tenderness (R) - Neurological Exam Neurological Exam: Alert, Awake, Oriented x3 - Psychiatric Exam Psychiatric exam: Normal Affect, Normal Mood - Skin Skin Exam: Dry, Normal Color, Warm Assessment and Plan - Assessment and Plan (Free Text) Assessment: 47 year old male with PMH asthma, presents with SOB, wheezing, admitted for asthma exacerbation Plan: Asthma Exacerbation - Continue: solumedrol, continue to taper; duoneb scheduled/PRN, Acetylcysteine ; Guaifenesin - Start: Spiriva 18mcg IH Daily - Start: Brovana 15mcg IH q12h - Start: Pulmicort 0.5mg IH q12h Opioid Withdrawal - Continue: Hydoxyzine, Zofran, Methadone, Clonidine Tobacco Use Disorder - advised smoking cessation, continue nicotine patch Cocaine Use Disorder -pt counseled about cessation, and the dangers of continued use Ppx SCDs Protonix 40mg Patient seen, examined, assessment/ plan discussed with Dr Betts. Anastacio Martinez PGY1 Internal Medicine Resident <Michele Betts - Last Filed: 07/15/18 15:19> Objective - Vital Signs/Intake and Output Vital Signs (last 24 hours): Temp Pulse Resp BP Pulse Ox 98.6 F 74 18 126/76 100 07/15/18 14:30 07/15/18 14:30 07/15/18 14:30 07/15/18 14:30 07/15/18 14:30 Intake and Output: 07/15/18 07/15/18 06:59 18:59 Intake Total 560 960 Output Total 2700 900 Balance -2140 60 - Medications Medications: Current Medications Acetaminophen (Tylenol 325mg Tab) 650 mg PO Q6H PRN PRN Reason: Fever >100.4 F Acetylcysteine (Acetylcysteine 20%) 4 ml IH [id number] Last Admin: 07/15/18 12:23 Dose: 4 ml Al Hydrox/Mg Hydrox/Simethicone (Maalox Plus 30 Ml) 30 ml PO DAILY PRN PRN Reason: Indigestion / Heartburn Last Admin: 07/12/18 06:50 Dose: 30 ml Albuterol/Ipratropium (Duoneb 3 Mg/0.5 Mg (3 Ml) Ud) 3 ml IH Q2H PRN PRN Reason: Shortness of Breath Last Admin: 07/15/18 12:23 Dose: 3 ml Arformoterol Tartrate (Brovana) 15 mcg IH [id number] [facility] Last Admin: 07/15/18 13:50 Dose: 15 mcg Budesonide (Pulmicort Respules) 0.5 mg IH [id number] [facility] Last Admin: 07/15/18 13:50 Dose: 0.5 mg Clonidine HCl (Catapres) 0.1 mg PO Q8H PRN PRN Reason: Opiod Withdrawal Symptoms Last Admin: 07/15/18 06:00 Dose: 0.1 mg Guaifenesin (Mucinex La) 600 mg PO BID [facility] Last Admin: 07/15/18 09:11 Dose: 600 mg Hydroxyzine HCl (Atarax) 25 mg PO Q8H PRN PRN Reason: Anxiety Last Admin: 07/14/18 23:11 Dose: 25 mg Methylprednisolone (Solu-Medrol) 20 mg IV Q12 [facility] Last Admin: 07/15/18 09:10 Dose: 20 mg Nicotine (Nicoderm Cq) 1 patch TD DAILY [facility] Last Admin: 07/15/18 09:12 Dose: Not Given Ondansetron HCl (Zofran Inj) 4 mg IVP Q6H PRN PRN Reason: Nausea/Vomiting Last Admin: 07/12/18 05:54 Dose: 4 mg Pantoprazole Sodium (Protonix Ec Tab) 40 mg PO 0600 [facility] Last Admin: 07/15/18 06:00 Dose: 40 mg Tiotropium [place] (Spiriva) 18 mcg IH DAILY [facility] Last Admin: 07/15/18 12:24 Dose: 18 mcg - Labs Labs: 07/15/18 06:45 07/15/18 06:45 Attending/Attestation - Attestation I have personally seen and examined this patient.: Yes I have fully participated in the care of the patient.: Yes I have reviewed all pertinent clinical information, including history, physical exam and plan: Yes Notes (Text): Patient seen and examined with the residents, agree with above Noted to have diffuse expiratory wheezing on Pulmonary exam Will administer IV solumedrol with tapering PO steroids to start 07/16 Continue with Albuterol, add Advair and Spiriva on discharge Counseled on substance abuse cessation
[2018-07-16] MEDS: Acetylcysteine 20% Inhal Soln (4ml) IH SCH ×3 (01:18→13:20)
[2018-07-16] MEDS: Pantoprazole 40 mg EC Tab PO SCH (05:17)
--- NOTE | 2018-07-16 06:12 | CP.PCM.DIS ---
<Anastacio Martinez - Last Filed: 07/16/18 14:19> Provider - Provider Date of Admission: 07/11/18 10:29 Attending physician: Patric Coleman MD Primary care physician: Leeann Ferris MD Time Spent in preparation of Discharge (in minutes): 35 Hospital Course - Lab Results Lab Results: Most Recent Lab Values WBC 12.9 10^3/ul (4.5-11.0) H 07/15/18 06:45 RBC 4.95 10^6/uL (3.5-6.1) 07/15/18 06:45 Hgb 16.1 g/dL (14.0-18.0) 07/15/18 06:45 Hct 45.5 % (42.0-52.0) 07/15/18 06:45 MCV 91.9 fl (80.0-105.0) 07/15/18 06:45 MCH 32.5 pg (25.0-35.0) 07/15/18 06:45 MCHC 35.4 g/dl (31.0-37.0) 07/15/18 06:45 RDW 13.3 % (11.5-14.5) 07/15/18 06:45 Plt Count 262 10^3/uL (120.0-450.0) 07/15/18 06:45 MPV 10.6 fl (7.0-11.0) 07/15/18 06:45 Gran % 65.2 % (50.0-68.0) 07/15/18 06:45 Lymph % (Auto) 26.4 % (22.0-35.0) 07/15/18 06:45 Bureau % (Auto) 6.8 % (1.0-6.0) H 07/15/18 06:45 Eos % (Auto) 1.5 % (1.5-5.0) 07/15/18 06:45 Baso % (Auto) 0.1 % (0.0-3.0) 07/15/18 06:45 Gran # 8.42 (1.4-6.5) H 07/15/18 06:45 Lymph # (Auto) 3.4 (1.2-3.4) 07/15/18 06:45 Bureau # (Auto) 0.9 (0.1-0.6) H 07/15/18 06:45 Eos # (Auto) 0.2 (0.0-0.7) 07/15/18 06:45 Baso # (Auto) 0.01 K/mm3 (0.0-2.0) 07/15/18 06:45 Neutrophils % (Manual) 91 % (50.0-70.0) H 07/11/18 06:00 Lymphocytes % (Manual) 6 % (22.0-35.0) L 07/11/18 06:00 Monocytes % (Manual) 3 % (1.0-6.0) 07/11/18 06:00 Platelet Evaluation Normal (NORMAL) 07/11/18 06:00 Sodium 140 mmol/L (132-148) 07/15/18 06:45 Potassium 3.9 mmol/L (3.6-5.0) 07/15/18 06:45 Chloride 103 mmol/L (98-107) 07/15/18 06:45 Carbon Dioxide 25 mmol/L (21-33) 07/15/18 06:45 Anion Gap 16 (10-20) 07/15/18 06:45 BUN 22 mg/dL (7-21) H 07/15/18 06:45 Creatinine 1.0 mg/dl (0.8-1.5) 07/15/18 06:45 Est GFR ( Amer) > 60 07/15/18 06:45 Est GFR (Non-Af Amer) > 60 07/15/18 06:45 Random Glucose 85 mg/dL (70-110) 07/15/18 06:45 Calcium 8.7 mg/dL (8.4-10.5) 07/15/18 06:45 Phosphorus 4.3 mg/dL (2.5-4.5) 07/13/18 07:30 Magnesium 2.2 mg/dL (1.7-2.2) 07/13/18 07:30 Total Bilirubin 0.5 mg/dL (0.2-1.3) 07/15/18 06:45 AST 16 U/L (17-59) L 07/15/18 06:45 ALT 22 U/L (7-56) 07/15/18 06:45 Alkaline Phosphatase 56 U/L (38-126) 07/15/18 06:45 Total Protein 6.4 g/dL (5.8-8.3) 07/15/18 06:45 Albumin 3.8 g/dL (3.0-4.8) 07/15/18 06:45 Globulin 2.6 gm/dL 07/15/18 06:45 Albumin/Globulin Ratio 1.5 (1.1-1.8) 07/15/18 06:45 Urine Opiates Screen Positive (NEGATIVE) H 07/12/18 07:50 Urine Methadone Screen Negative (NEGATIVE) 07/12/18 07:50 Ur Barbiturates Screen Negative (NEGATIVE) 07/12/18 07:50 Ur Phencyclidine Scrn Negative (NEGATIVE) 07/12/18 07:50 Ur Amphetamines Screen Negative (NEGATIVE) 07/12/18 07:50 U Benzodiazepines Scrn Negative (NEGATIVE) 07/12/18 07:50 U Oth Cocaine Metabols Positive (NEGATIVE) H 07/12/18 07:50 U Cannabinoids Screen Positive (NEGATIVE) 07/12/18 07:50 - Hospital Course Hospital Course: Pt is a 47 yo male with a PMH of severe persistent asthma who presented to [facility] under policy custody complaining of chest tightness and wheezing with SOB which he stated had been going on for a couple of weeks. Pt stated that his symptoms worsened the day of his admission, and worsened when he was taken into police custody. Pt admitted that he had a productive cough with yellow sputum that had been worsening over the past week before arrival. He reported that these symptoms were similar to prior asthma exacerbations. Patient states that the SOB is worse with exertion and lying flat but finds relief with inhaler and nebulizers. Patient reports waking up about 3 times per week at night with SOB. He has been using his rescue inhaler at least twice per day. Patient notes smoking 1/2 pack per day. Pt was treated with nebulizers and steroids while he was admitted. Pt is being discharged with Brovana, Spiriva, Albuterol and PO Prednisone. Pt's wheezing improved greatly over the course of his admission. Pt discharge was discussed with patient, attending and medical team and he decision to discharge was agreed upon. - Date & Time of H&P Date of H&P: 07/16/18 Time of H&P: 06:10 Discharge Exam - Head Exam Head Exam: ATRAUMATIC, NORMOCEPHALIC - Eye Exam Eye Exam: EOMI, Normal appearance - ENT Exam ENT Exam: Mucous Membranes Dry - Neck Exam Neck exam: Full Rom - Respiratory Exam Respiratory Exam: NORMAL BREATHING PATTERN, UNREMARKABLE. absent: Accessory Muscle Use, Rales, Rhonchi, Wheezes, Respiratory Distress, Stridor - Cardiovascular Exam Cardiovascular Exam: REGULAR RHYTHM, RRR, +S1, +S2. absent: Diastolic murmur, Irregular Rhythm, JVD - GI/Abdominal Exam GI & Abdominal Exam: Normal Bowel Sounds, Soft, Unremarkable. absent: Firm, Guarding, Hernia, Rebound, Rigid - Extremities Exam Extremities exam: full ROM - Back Exam Back exam: FULL ROM. absent: CVA tenderness (L), CVA tenderness (R), muscle spasm - Neurological Exam Neurological exam: Alert, Oriented x3 - Psychiatric Exam Psychiatric exam: Normal Affect, Normal Mood - Skin Skin Exam: Dry, Normal Color, Warm Discharge Plan - Discharge Medications Prescriptions: Albuterol HFA [Ventolin HFA 90 mcg/actuation (8 g)] 1 puff IH Q6 #1 inhaler Arformoterol [Brovana] 15 mcg IH [id number] 30 Days neb Budesonide [Pulmicort Respules] 0.5 mg IH [id number] #14 neb Prednisone [Deltasone] 40 mg PO DAILY #5 tablet Tiotropium [Spiriva] 18 mcg IH DAILY #14 cap - Follow Up Plan Condition: FAIR Disposition: HOME/ ROUTINE Instructions: Quitting Smoking for Older Adults, Smoking: Not Just Harmful to Your Lungs and Heart, Asthma, Adult (DC), Diet and Health, Asthma (DC), Asthma ( GEN) Additional Instructions: 1. Smoking cessation counseled 2. Medication use and compliance discussed with pt 3. Follow up with his primary care physician was discussed 4 Pt advised to return to a local ED if symptoms worsen Referrals: Leeann Ferris MD [Primary Care Provider] - <Mireya Contreras - Last Filed: 07/16/18 16:06> Provider - Provider Date of Admission: 07/11/18 10:29 Attending physician: Patric Coleman MD Primary care physician: Leeann Ferris MD Hospital Course - Lab Results Lab Results: Most Recent Lab Values WBC 12.9 10^3/ul (4.5-11.0) H 07/15/18 06:45 RBC 4.95 10^6/uL (3.5-6.1) 07/15/18 06:45 Hgb 16.1 g/dL (14.0-18.0) 07/15/18 06:45 Hct 45.5 % (42.0-52.0) 07/15/18 06:45 MCV 91.9 fl (80.0-105.0) 07/15/18 06:45 MCH 32.5 pg (25.0-35.0) 07/15/18 06:45 MCHC 35.4 g/dl (31.0-37.0) 07/15/18 06:45 RDW 13.3 % (11.5-14.5) 07/15/18 06:45 Plt Count 262 10^3/uL (120.0-450.0) 07/15/18 06:45 MPV 10.6 fl (7.0-11.0) 07/15/18 06:45 Gran % 65.2 % (50.0-68.0) 07/15/18 06:45 Lymph % (Auto) 26.4 % (22.0-35.0) 07/15/18 06:45 Bureau % (Auto) 6.8 % (1.0-6.0) H 07/15/18 06:45 Eos % (Auto) 1.5 % (1.5-5.0) 07/15/18 06:45 Baso % (Auto) 0.1 % (0.0-3.0) 07/15/18 06:45 Gran # 8.42 (1.4-6.5) H 07/15/18 06:45 Lymph # (Auto) 3.4 (1.2-3.4) 07/15/18 06:45 Bureau # (Auto) 0.9 (0.1-0.6) H 07/15/18 06:45 Eos # (Auto) 0.2 (0.0-0.7) 07/15/18 06:45 Baso # (Auto) 0.01 K/mm3 (0.0-2.0) 07/15/18 06:45 Neutrophils % (Manual) 91 % (50.0-70.0) H 07/11/18 06:00 Lymphocytes % (Manual) 6 % (22.0-35.0) L 07/11/18 06:00 Monocytes % (Manual) 3 % (1.0-6.0) 07/11/18 06:00 Platelet Evaluation Normal (NORMAL) 07/11/18 06:00 Sodium 140 mmol/L (132-148) 07/15/18 06:45 Potassium 3.9 mmol/L (3.6-5.0) 07/15/18 06:45 Chloride 103 mmol/L (98-107) 07/15/18 06:45 Carbon Dioxide 25 mmol/L (21-33) 07/15/18 06:45 Anion Gap 16 (10-20) 07/15/18 06:45 BUN 22 mg/dL (7-21) H 07/15/18 06:45 Creatinine 1.0 mg/dl (0.8-1.5) 07/15/18 06:45 Est GFR ( Amer) > 60 07/15/18 06:45 Est GFR (Non-Af Amer) > 60 07/15/18 06:45 Random Glucose 85 mg/dL (70-110) 07/15/18 06:45 Calcium 8.7 mg/dL (8.4-10.5) 07/15/18 06:45 Phosphorus 4.3 mg/dL (2.5-4.5) 07/13/18 07:30 Magnesium 2.2 mg/dL (1.7-2.2) 07/13/18 07:30 Total Bilirubin 0.5 mg/dL (0.2-1.3) 07/15/18 06:45 AST 16 U/L (17-59) L 07/15/18 06:45 ALT 22 U/L (7-56) 07/15/18 06:45 Alkaline Phosphatase 56 U/L (38-126) 07/15/18 06:45 Total Protein 6.4 g/dL (5.8-8.3) 07/15/18 06:45 Albumin 3.8 g/dL (3.0-4.8) 07/15/18 06:45 Globulin 2.6 gm/dL 07/15/18 06:45 Albumin/Globulin Ratio 1.5 (1.1-1.8) 07/15/18 06:45 Urine Opiates Screen Positive (NEGATIVE) H 07/12/18 07:50 Urine Methadone Screen Negative (NEGATIVE) 07/12/18 07:50 Ur Barbiturates Screen Negative (NEGATIVE) 07/12/18 07:50 Ur Phencyclidine Scrn Negative (NEGATIVE) 07/12/18 07:50 Ur Amphetamines Screen Negative (NEGATIVE) 07/12/18 07:50 U Benzodiazepines Scrn Negative (NEGATIVE) 07/12/18 07:50 U Oth Cocaine Metabols Positive (NEGATIVE) H 07/12/18 07:50 U Cannabinoids Screen Positive (NEGATIVE) H 07/12/18 07:50 Attending/Attestation - Attestation I have personally seen and examined this patient.: Yes I have fully participated in the care of the patient.: Yes I have reviewed all pertinent clinical information, including history, physical exam and plan: Yes
[2018-07-16] MEDS: Arformoterol 15 mcg/2 ml Inh Sol IH SCH (08:08)
[2018-07-16] MEDS: Budesonide 0.5 mg/2 ml Inhal Susp UD IH SCH (08:09)
[2018-07-16 09:09] VITALS: BP 131/88; PULSE 61; RESP 20; O2SAT 95
[2018-07-16] MEDS: guaiFENesin 600 mg ER Tab PO SCH ×2 (11:03→17:23)
[2018-07-16] MEDS: Tiotropium 18 mcg Cap For Inhalation IH SCH (11:03)
[2018-07-16] MEDS: MethylPREDNISolone 40 mg Vial IV SCH (11:03)
[2018-07-16 15:35] VITALS: TEMP 98.3
== END 2018-07-16 18:55 | disposition home or self-care (01) | DRG 96 ==
LOC: ED 20:16 → ERH 21:58 → 5RSO 07-11 00:11 → OBSVTOIN 07-11 10:29 → 5RNO 07-13 08:35
PROVIDERS: ADMIT Internal Medicine; ATTEND Internal Medicine
PROC: 3E0F7GC Introduction of Other Therapeutic Substance into Respiratory Tract, Via Natural or Artificial Opening (ICD-10-PCS; principal; 2018-07-11)
DX: J45.51 Severe persistent asthma with (acute) exacerbation (principal); F11.23 Opioid dependence with withdrawal; F14.10 Cocaine abuse, uncomplicated; F17.210 Nicotine dependence, cigarettes, uncomplicated; D72.829 Elevated white blood cell count, unspecified; T38.0X5A Adverse effect of glucocorticoids and synthetic analogues, initial encounter; D75.1 Secondary polycythemia; K21.9 Gastro-esophageal reflux disease without esophagitis; F41.9 Anxiety disorder, unspecified

== ENCOUNTER 2018-10-12 19:28 | Emergency (ER) | payer SELFPAY ==
[2018-10-12 19:35] VITALS: BMI 27.3
[2018-10-12 19:36] VITALS: TEMP 97.9; O2SAT 100
[2018-10-12] MEDS ORDERED: Magnesium Sulfate 2 GM in Sodium Chloride 0.9% 100 ML IVPB ONE (19:39)
[2018-10-12] MEDS ORDERED: Albuterol-Ipratrop 3 mg / 0.5 (3 ml) UD ONE (19:45)
[2018-10-12] MEDS: Albuterol-Ipratrop 3 mg / 0.5 (3 ml) UD IH SCH ×3 (19:45→20:17)
[2018-10-12 20:22] LABS: BASO # 0.03 K/mm3 (0.0-2.0); BASO % 0.2 % (0.0-3.0); EOS # 0.1 (0.0-0.7); GRAN # 9.25 (1.4-6.5); HEMOGLOBIN 15.3 g/dL (14.0-18.0); LYMPH # 1.7 (1.2-3.4); LYMPH % 14.1 % (22.0-35.0); MEAN CELL VOLUME 93.5 fl (80.0-105.0); MEAN CORPUSCULAR HGB CONC 34.2 g/dl (31.0-37.0); MEAN PLATELET VOLUME 10.7 fl (7.0-11.0); MONO # 0.9 (0.1-0.6); MONO % 7.7 % (1.0-6.0); RBC 4.78 10^6/uL (3.5-6.1); RED CELL DISTRIBUTION WIDTH 13.5 % (11.5-14.5)
[2018-10-12 20:34] LABS: BLOOD UREA NITROGEN 13 mg/dL (7-21); CALCIUM 9.1 mg/dL (8.4-10.5); GFR NON-AFRICAN AMERICAN > 60
[2018-10-12 20:44] LABS: ALB/GLOB RATIO 1.4 (1.1-1.8); ALBUMIN 4.4 g/dL (3.0-4.8); ALT/SGPT 34 U/L (7-56); AST/SGOT 30 U/L (17-59)
[2018-10-12] MEDS ORDERED: Albuterol 0.083% Inhal Sol (2.5 mg/3 mL) UD ONE (21:03)
[2018-10-12] MEDS ORDERED: Albuterol 0.083% Inhal Sol (2.5 mg/3 mL) UD INH STA (21:03)
[2018-10-12 22:15] VITALS: BP 122/75; PULSE 71; RESP 20
--- NOTE | 2018-10-13 01:40 | ED PDOC ---
Arrival/HPI - General Chief Complaint: Shortness Of Breath Time Seen by Provider: 10/12/18 19:35 Historian: Patient, Police - History of Present Illness Narrative History of Present Illness (Text): 10/13/18 19:35 47 year old male, whose past medical history includes asthma, presents to the emergency department in police custody for asthma symptoms, since today. Patient is a poor historian. Patient is a smoker. Patient denies any fever, cough, or any other complaints. Time/Duration: Prior to Arrival, 24 hours Past Medical History - Provider Review Nursing Documentation Reviewed: Yes - Infectious Disease Hx of Infectious Diseases: None - Cardiac Hx Cardiac Disorders: No Hx Peripheral Vascular Disease: No - Pulmonary Hx Respiratory Disorders: Yes Hx Asthma: Yes Hx Bronchitis: Yes Other/Comment: smoker: 1/2 [employer] - Neurological Hx Neurological Disorder: No - HEENT Hx HEENT Disorder: No - Renal Hx Renal Disorder: No - Endocrine/Metabolic Hx Endocrine Disorders: No - Hematological/Oncological Hx Blood Disorders: No - Integumentary Hx Dermatological Disorder: No - Musculoskeletal/Rheumatological Hx Falls: No - Gastrointestinal Hx Gastrointestinal Disorders: Yes Hx Gastroesophageal Reflux: Yes Other/Comment: 04/2018 incarcerated inguinal hernia, pt states he never followed up - Genitourinary/Gynecological Hx Genitourinary Disorders: No Hx Prostate Problems: Yes (BPH) Hx Urinary Tract Infection: Yes - Psychiatric Hx Psychophysiologic Disorder: No Hx Substance Use: Yes (marijuana, occasional) Other/Comment: history of marijuana use, occasional - Surgical History Other/Comment: tonsillectomy - Anesthesia Hx Anesthesia: Yes Hx Anesthesia Reactions: No Hx Malignant Hyperthermia: No Family/Social History - Physician Review Nursing Documentation Reviewed: Yes Family/Social History: No Known Family HX Smoking Status: Current Some Days Smoker Hx Alcohol Use: No Hx Substance Use: Yes (marijuana, occasional) Allergies/Home Meds Allergies/Adverse Reactions: Allergies Penicillins Allergy (Severe, Verified 07/10/18 20:20) SWELLING seafoods Allergy (Mild, Uncoded 07/10/18 20:20) ITCHING Review of Systems - Physician Review All systems were reviewed & negative as marked: Yes - Review of Systems Constitutional: absent: Fevers Respiratory: Wheezing. absent: Cough Physical Exam Vital Signs Reviewed: Yes Vital Signs Temp Pulse Resp BP Pulse Ox 10/12/18 22:26 100 10/12/18 22:14 71 20 122/75 100 10/12/18 19:29 97.9 F 75 22 145/65 100 Temperature: Afebrile Blood Pressure: Normal Pulse: Regular Respiratory Rate: Normal Appearance: Positive for: Well-Appearing, Non-Toxic, Comfortable Pain Distress: None Mental Status: Positive for: Alert and Oriented X 3 - Systems Exam Head: Present: Atraumatic, Normocephalic Pupils: Present: PERRL Extroacular Muscles: Present: EOMI Conjunctiva: Present: Normal Mouth: Present: Moist Mucous Membranes Neck: Present: Normal Range of Motion Respiratory/Chest: Present: Good Air Exchange, Wheezes (expiratory wheeze) Cardiovascular: Present: Regular Rate and Rhythm, Normal S1, S2. No: Murmurs Abdomen: No: Tenderness, Distention, Peritoneal Signs Back: Present: Normal Inspection Upper Extremity: Present: Normal Inspection. No: Cyanosis, Edema Lower Extremity: Present: Normal Inspection. No: Edema Neurological: Present: GCS=15, CN II-XII Intact, Speech Normal Skin: Present: Warm, Dry, Normal Color. No: Rashes Psychiatric: Present: Alert, Oriented x 3, Normal Insight, Normal Concentration Medical Decision Making ED Course and Treatment: 10/13/18 19:40 Impression: 47 year old male presents with asthma symptoms. Plan: -- Chest X-ray -- Albuterol -- Magnesium Sulfate -- Medrol -- Reassess and disposition Prior Visits: Notes and results from previous visits were reviewed. Progress Notes: 10/13/18 20:30 Upon reevaluation, patient states he feels felt better. Patient O2 saturation at 100%. Will be discharged in [employer] custody. - Lab Interpretations Lab Results: 10/12/18 19:49 10/12/18 19:49 Lab Results 10/12/18 20:37: Influenza Typ A,B (EIA) Negative for flu a/b 10/12/18 19:49: Sodium 138, Potassium 4.3, Chloride 104, Carbon Dioxide 25, Anion Gap 14, BUN 13, Creatinine 0.7 L, Est GFR ( Amer) > 60, Est GFR (Non-Af Amer) > 60, Random Glucose 94, Calcium 9.1, Magnesium 2.1, Total Bilirubin 0.7, AST 30, ALT 34, Alkaline Phosphatase 54, Total Protein 7.6, Albumin 4.4, Globulin 3.2, Albumin/Globulin Ratio 1.4 10/12/18 19:49: WBC 12.0 H, RBC 4.78, Hgb 15.3, Hct 44.7, MCV 93.5, MCH 32.0, MCHC 34.2, RDW 13.5, Plt Count 307, MPV 10.7, Gran % 77.0 H, Lymph % (Auto) 14.1 L, [place] % (Auto) 7.7 H, Eos % (Auto) 1.0 L, Baso % (Auto) 0.2, Gran # 9.25 H, Lymph # (Auto) 1.7, [place] # (Auto) 0.9 H, Eos # (Auto) 0.1, Baso # (Auto) 0.03 - RAD Interpretation Radiology Orders: 10/12/18 19:39 CHEST PORTABLE [RAD] Stat - Medication Orders Current Medication Orders: Discontinued Medications Albuterol Sulfate (Albuterol 0.083% Inhal Marie (2.5 Mg/3 Ml) Ud) 2.5 mg INH STAT STA Stop: 10/12/18 21:04 Last Admin: 10/12/18 21:06 Dose: 2.5 mg Albuterol/Ipratropium (Duoneb 3 Mg/0.5 Mg (3 Ml) Ud) 3 ml IH Q15M MARV Stop: 10/12/18 20:16 Last Admin: 10/12/18 20:17 Dose: 3 ml Magnesium Sulfate 2 gm/ Sodium (Chloride) 104 mls @ 102 mls/hr IVPB ONCE ONE Stop: 10/12/18 20:40 Last Admin: 10/12/18 19:56 Dose: 102 mls/hr eMAR Start Stop Document 10/12/18 19:56 SS (Rec: 10/12/18 19:57 [id number] Intravenous Solution Start Date 10/12/18 Start Time 19:56 End Date 10/12/18 End time 20:58 Total Infusion Time 62 Methylprednisolone (Solu-Medrol) 125 mg IVP STAT STA Stop: 10/12/18 19:40 Last Admin: 10/12/18 19:55 Dose: 125 mg IVP Administration Document 10/12/18 19:55 SS (Rec: 10/12/18 19:55 [id number]) Charges for Administration # of IVP Administrations 1 - Scribe Statement The provider has reviewed the documentation as recorded by the Scribe Louie Maya Provider Scribe Attestation: All medical record entries made by the Scribe were at my direction and personally dictated by me. I have reviewed the chart and agree that the record accurately reflects my personal performance of the history, physical exam, medical decision making, and the department course for this patient. I have also personally directed, reviewed, and agree with the discharge instructions and disposition. Disposition/Present on Arrival - Present on Arrival Any Indicators Present on Arrival: No History of DVT/PE: No History of Uncontrolled Diabetes: No Urinary Catheter: No History of Decub. Ulcer: No History Surgical Site Infection Following: None - Disposition Have Diagnosis and Disposition been Completed?: Yes Diagnosis: Asthma exacerbation Disposition: HOME/ ROUTINE Disposition Time: 22:10 Condition: IMPROVED Discharge Instructions (ExitCare): Asthma, Adult (DC) Additional Instructions: ARNOLDO BOSS JR, thank you for letting us take care of you today. The emergency medical care you received today was directed at your acute symptoms. If you were prescribed any medication, please fill it and take as directed. It may take several days for your symptoms to resolve. Return to the Emergency Department if your symptoms worsen, do not improve, or if you have any other problems. Please contact your doctor or call one of the physicians/clinics you have been referred to that are listed on the Patient Visit Information form that is included in your discharge packet. Bring any paperwork you were given at discharge with you along with any medications you are taking to your follow up visit. Our treatment cannot replace ongoing medical care by a primary care provider outside of the emergency department. Thank you for allowing the [facility] team to be part of your care today. PATIENT IS CLEARED FROM BOTH MEDICAL & PSYCHIATRIC STANDPOINT FOR INCARCERATION. Prescriptions: Albuterol HFA [Ventolin HFA 90 mcg/actuation (8 g)] 2 puff IH [id number] PRN #1 puff PRN Reason: Wheezing predniSONE [Prednisone] 40 mg PO DAILY #10 tab Referrals: Leeann Ferris MD [Primary Care Provider] - Follow up with primary Forms: [facility] ([place])
--- NOTE | 2018-10-13 09:42 | RAD ---
Date of service: 10/12/2018 HISTORY: r/o infiltrate COMPARISON: Portable chest 07/10/2018. FINDINGS: LUNGS: No active pulmonary disease. PLEURA: No significant pleural effusion identified, no pneumothorax apparent. CARDIOVASCULAR: No aortic atherosclerotic calcification present. Normal cardiac size. No pulmonary vascular congestion. OSSEOUS STRUCTURES: No significant abnormalities. VISUALIZED UPPER ABDOMEN: Normal. OTHER FINDINGS: None. IMPRESSION: No interval acute cardiopulmonary disease appreciated.
== END 2018-10-12 22:39 | disposition home or self-care (01) ==
LOC: ED 19:28
DX: J45.901 Unspecified asthma with (acute) exacerbation (principal); F17.210 Nicotine dependence, cigarettes, uncomplicated
CPT/HCPCS: 71045; 80053; 83735; 85025; 87804; 96365; 96375; 99284; J2930; J3475